=== PATIENT | female | born 1955 | race Caucasian/White ===

== ENCOUNTER 2017-12-14 22:38 | Emergency (ER) | payer MEDICAID, SELFPAY ==
[2017-12-14 22:53] VITALS: BP 99/64; PULSE 83; RESP 18; TEMP 36.9; O2SAT 95
--- NOTE | 2017-12-14 23:28 | ED.GENADUL ---
Disposition Clinical Impression: Cellulitis of left toe Disposition: HOME Condition: Good Instructions: Cellulitis (ED) Additional Instructions: Antibiotic as prescribed. Follow-up your hatchery worker this week. Return to ED for fever, chills, worsening foot pain, swelling, redness. Prescriptions: Amoxicillin 875/Clav. 125 [Augmentin 875-125 Tablet] 1 tab PO BID #20 tab Referrals: Kristian Long DPM [[facility] STAFF PHYSICIAN] - Medical Decision Making - Medical Decision Making Patient is followed by podiatry. She reports x-rays within the last month which were negative for osteomyelitis. She does not have significant bony tenderness. She has severe degenerative rheumatoid changes. She does have cellulitis of the toe. Previously had been on cephalexin. Offered repeat x-rays tonight to evaluate for the possibility of osteomyelitis. She declines because she does not really want to be here. I will go ahead and put her on antibiotics and given the recent round of Keflex will go ahead and use Augmentin. I will have her follow-up with her hatchery worker this week. Return to ED for fever, worsening pain/swelling/redness. History of Present Illness - General Chief complaint: Cellulitis Stated complaint: INFECTED TOE Time Seen by Provider: 12/14/17 23:28 Source: patient Mode of arrival: ambulatory Limitations: no limitations - History of Present Illness Initial comments: Patient presents to ED for evaluation of left toe redness and swelling. Patient is followed by podiatry, Dr. Long. She has been on antibiotics but currently is not. She does not think the toe necessarily looks worse. Her solvent recoverer definitely does and thinks the foot is red and swollen as well. The patient has not noticed any fevers or chills and otherwise feels well. She does have significant rheumatoid arthritis and is on fairly high-dose steroids. She is able to ambulate. She has been doing soaks and keeping her toe covered. She did not want to come into the ED tonight but her sister/solvent recoverer made her come in. - Related Data BuPROPion XL [Wellbutrin Xl] 150 mg PO BID 11/23/14 PredniSONE [Deltasone] 14 mg PO DAILY 11/23/14 ROPINIRole [Requip] 0.25 mg PO BID 02/02/15 Duloxetine HCl 30 mg PO BID 09/01/15 OxyCODONE [Roxicodone] 10 mg PO QID PRN MDD 6 09/01/15 Ferrous Gluconate 325 mg PO BID 01/24/16 Lorazepam [Ativan] 0.5 mg PO BID PRN 01/24/16 Gabapentin 600 mg PO TID 08/24/16 Benzonatate [Tessalon Perles] 200 mg PO Q8H PRN #30 cap 08/02/17 Meloxicam [Mobic] 1 tab PO BID 08/02/17 Morphine Sulfate [Morphine Sulfate ER] 20 mg PO DAILY 08/02/17 Alendronate Sodium 70 mg PO .WEEKLY 10/30/17 Calcium Carbonate/Vitamin D3 [Calcium 600 with Vit D Chew Tb] 2 tab PO DAILY 10/30/17 Lidocaine 5% [Lidoderm 5% Patch] 1 patch DAILY 10/30/17 Omeprazole 20 mg PO DAILY 10/30/17 Polyethylene Glycol 3350 [Glycolax] 1 applic PO BID 10/30/17 Amoxicillin 875/Clav. 125 [Augmentin 875-125 Tablet] 1 tab PO BID #20 tab 12/14/17 Allergies Allergy/AdvReac Type Severity Reaction Status Date / Time sertraline HCl [From Zoloft] Allergy hives Unverified 12/14/17 23:02 baclofen AdvReac Other (See Unverified 12/14/17 23:02 Comment) Review of Systems Constitutional: denies: chills, fever Respiratory: denies: shortness of breath Cardiovascular: denies: chest pain Gastrointestinal: denies: abdominal pain, nausea, vomiting Musculoskeletal: other (severe RA) Skin: change in color Neurological: denies: headache, weakness, numbness Past Medical History - Past Medical History Medical history: arthritis, diabetes, hypertension RA,Chronic pain, Polyarthralgia, Anemia, Cardiomyopathy, Insomnia, Restless Legs Syndrome Surgical history: other (Cervical fusion, Knee replacement, Hip replacement, Back surgery, Foot surgery) - Social History Alcohol use: none Drug use: none General Exam - General Limitations: no limitations General appearance: alert, in no apparent distress - Head Head exam: Present: atraumatic, normocephalic - Eye Eye exam: Present: normal apperance - Extremities Exam Extremities exam: Present: other (Patient with significant rheumatoid arthritis deformities of hand and feet. Left foot with mild edema on the dorsal aspect and slight erythema present. Left third toe markedly erythematous and swollen. No drainage noted although an ulcer is seen. There does not appear to be bony tenderness to palpation.) - Neurological Exam Neurological exam: Present: alert, oriented X3, CN II-XII intact. Absent: motor sensory deficit - Skin Skin exam: Present: warm, dry, erythema, other (Toe ulceration) Course Vital Signs - 24 hr 12/14/17 22:53 Temperature 98.4 F Pulse 83 Respiratory 18 Rate Blood Pressure 99/64 Pulse Oximetry 95
[2017-12-15] MEDS: Amoxicillin 875/Clav. 125 TAB PO (00:01)
== END 2017-12-15 00:04 | disposition home or self-care (01) ==
PROVIDERS: Emergency Provider Emergency Medicine; PCP Internal Medicine
DX: L03.032 Cellulitis of left toe (principal); Z79.52 Long term (current) use of systemic steroids; I10 Essential (primary) hypertension; E11.9 Type 2 diabetes mellitus without complications
CPT/HCPCS: 99283

== ENCOUNTER 2018-07-26 17:06 | Emergency (ER) | payer MEDICAID, SELFPAY ==
[2018-07-26 17:16] VITALS: BP 156/91; PULSE 104; RESP 16; TEMP 36.7; O2SAT 95
--- NOTE | 2018-07-26 17:33 | W.ED.GENAD ---
Discharge Plan Disposition Patient Disposition: HOME Condition: Improving Discharge Details Chief Complaint: RespSymp Clinical Impression: Bronchitis Primary Care Provider: Gio Munoz ED Provider: Adali Loaiza Home Meds and New Rx's Prescriptions: New prednisone 20 mg tablet See Rx Instructions .ROUTE .COMPLEX Qty: 12 RF: 0 levofloxacin [Levaquin] 750 mg tablet 750 mg PO DAILY 4 Days Qty: 4 RF: 0 Continued acetaminophen 325 mg tablet 650 mg PO Q4H PRNRF: 0 Narcan 4 mg/actuation spray,non-aerosol 1 spray JUN ONCE PRNRF: 0 bupropion HCl 150 MG tablet extended release 24 hr 150 mg PO BID RF: 0 prednisone 20 mg tablet 10 mg PO DAILY RF: 0 duloxetine 30 MG capsule,delayed release(DR/EC) 30 mg PO BID RF: 0 oxycodone 10 MG tablet 10 mg PO QID MDD 6 PRNRF: 0 lorazepam [Ativan] 0.5 MG tablet 0.5 mg PO BID PRNRF: 0 ferrous gluconate 325 MG tablet 325 mg PO BID RF: 0 gabapentin 800 MG tablet 600 mg PO TID RF: 0 meloxicam 7.5 MG tablet 1 tab PO BID RF: 0 morphine 30 MG capsule,extend.release pellets 20 mg PO DAILY RF: 0 benzonatate 200 MG capsule 200 mg PO Q8H PRN (Reason: Cough) Qty: 30 RF: 0 alendronate 70 MG tablet 70 mg PO .WEEKLY RF: 0 lidocaine [Lidoderm] 1 PATCH adhesive patch,medicated 1 patch DAILY RF: 0 omeprazole 20 MG capsule,delayed release(DR/EC) 20 mg PO DAILY RF: 0 polyethylene glycol 3350 [GlycoLax] 527 GM powder 1 applic PO BID RF: 0 Calcium 600 with Vitamin D3 1 EACH tablet,chewable 2 tab PO DAILY RF: 0 amoxicillin-pot clavulanate 1 TAB tablet 1 tab PO BID Qty: 20 RF: 0 Discharge Instructions Instructions: Acute Bronchitis (ED), Pneumonia (ED) Additional Instructions: Take the steroid prescription as directed until finished and then resume your regular daily dose of prednisone. Drink plenty of fluids and get plenty of rest. You left before your chest x-ray reading was complete. You did not have an obvious pneumonia on chest x-ray, but the radiologist may see a pneumonia once the xray reading is complete. You will be notified if a pneumonia is diagnosed. Also, smoking is a risk factor for pneumonia so you will be sent home with antibiotics. Take the antibiotics as directed until finished. Follow-up with your primary care doctor in 2 days for reevaluation. Return immediately to the emergency department any worsening or new concerning symptoms. Discharge Data Discharge Date/Time-TO BE ENTERED AT DEPARTURE: 07/26/18 19:10 Discharge Physician: Adali Loaiza Medical Decision Making 62-year-old female with history of rheumatoid arthritis, depression, anxiety, diabetes who presents for cough with pike sputum, shortness of breath with exertion and chest congestion for the past week. Blood pressure and heart rate mildly elevated. Normal respiratory rate, oxygen saturation 95% on room air, and afebrile. Patient able to speak in full sentences. She has diffuse rhonchi with minimal scattered wheezing, worse on left side. Differential diagnosis mostly consistent with bronchitis, pneumonia, URI, influenza. Patient is on steroids chronically, currently on 10 mg prednisone daily for her rheumatoid arthritis. She also is a smoker. Considering patient's age and medical history, will obtain cardiac labs and EKG as well as chest x-ray, influenza, dose of p.o. prednisone and neb treatment and reassess. EKG notes a rate of 90, sinus and no acute ST findings. 1830 --labs and imaging reviewed and unremarkable. Normal white blood cell count, electrolytes, negative troponin. Glucose 208 but normal bicarb and anion gap. Influenza negative. Chest x-ray notes haziness in the bases bilaterally but no obvious focal consolidation. Patient states she feels better after neb treatment. Patient is requesting to go home. Discussed with patient that I do not have the final reading of the chest x-ray but I do not see an obvious pneumonia at this time. Due to her age, smoking history and comorbidities, will send home with a prescription for antibiotics. There is an interaction with doxycycline with her calcium and iron, and then she was recently on Augmentin so we will give a prescription for Levaquin. Pt informed of risks of tendinopathy with levaquin and to be aware of any of these symptoms and to f/u with her pcp and stop the antibiotics if indicated. Patient also requested a albuterol inhaler for home. Patient is instructed to follow-up with primary care doctor for reevaluation and return here at any time if worse. Review of x-ray after patient discharge noted it to be read as negative. Medical Records Medical records reviewed: Yes I reviewed the patient's medical records. Imaging Data Radiologic Study: Radiologist's impression: XR Chest, 2 Views EXAM DATE/TIME: 07/26/2018 5:32 PM FINDINGS: Lungs: Unremarkable. No consolidation. Pleural space: Unremarkable. No pleural effusion. No pneumothorax. Heart/Mediastinum: Mild cardiomegaly. Vasculature: Aortic ectasia again seen. Bones/joints: Status post lower cervical fusion and left-sided midthoracic fusion. Old bilateral rib fractures noted. IMPRESSION: No acute abnormality evident in the chest. Lab Data Lab results reviewed: Yes I reviewed the patient's lab results. 07/26/18 17:44 Nasopharynx Influenza Types A,B Antigen - Final Laboratory Tests Range/Units 07/26/18 07/26/18 17:55 17:55 WBC (4.4-10.8) k/cumm 10.09 RBC (4.00-5.20) m/cumm 5.01 Hgb (12.0-15.5) g/dL 14.5 Hct (36.0-46.0) % 42.9 MCV (80-95) fL 85.6 MCH (27.0-33.0) pg 28.9 MCHC (32.0-36.0) g/dL 33.8 RDW (11.7-14.6) % 13.5 Plt Count (130-400) x1000/uL 224 MPV (8.0-11.0) fL 9.1 Immature Gran % 0.4 Neutrophils % 84.8 Lymphocytes % 9.4 Monocytes % 4.6 Eosinophils % 0.6 Basophils % 0.2 Absolute Neutrophils (1.2-6.7) k/cumm 8.56 H Absolute Lymphocytes (1.2-3.4) k/cumm 0.95 L Absolute Monocytes (0.11-0.7) k/cumm 0.46 Absolute Eosinophils (0.0-0.7) k/cumm 0.06 Absolute Basophils (0.0-0.2) k/cumm 0.02 Sodium (136-145) mmol/L 134 L Potassium (3.5-5.1) mmol/L 3.8 Chloride (98-107) mmol/L 99 Carbon Dioxide (21.0-32.0) mmol/L 24.2 Anion Gap (3-11) mmol/L 10.8 BUN (7-18) mg/dL 14 Creatinine (0.55-1.02) mg/dL 1.04 H Estimated GFR/1.73 m2 (mL/min/1.73m2) 53.35 Glucose (70-100) mg/dL 208 H Calcium (8.5-10.1) mg/dL 9.1 Magnesium (1.8-2.4) mg/dL 2.0 Total Bilirubin (0.2-1.0) mg/dL 0.3 AST (15-37) U/L 19 ALT (12-78) U/L 21 Alkaline Phosphatase (46-116) U/L 69 Troponin I (0.00-0.06) ng/mL < 0.02 Total Protein (6.4-8.2) g/dL 7.1 Albumin (3.4-5.0) g/dL 3.6 ECG Data Attestation: I personally reviewed and interpreted this ECG (s) as follows: Interpretation: Rate of 90, occasional PVCs, no acute ST elevation or depression. QTc 445. QRS 98. HPI General Mode of arrival: ambulatory. Date/Time Provider Initiated Documentation: 07/26/18 17:06. Limitations to Documentation: no limitations. Information obtained by: patient. HPI Narrative: Patient is a 62-year-old female with history of rheumatoid arthritis, anxiety, depression, diabetes and restless leg syndrome who presents with cough with pike sputum and shortness of breath with exertion over the past week. She states the cough with chest congestion is bothering her the most. She denies any chest pain except for at times only with coughing. She states she took [id number] flu medication earlier in the week without relief. She states she has been eating and drinking normally. She does admit to intermittent hot and cold chills but denies any known fever. She denies any vomiting, diarrhea, ear pain or sore throat. Related Data Home Medications Medication Instructions Recorded Confirmed bupropion HCl 150 mg PO BID 11/23/14 07/26/18 duloxetine 30 mg PO BID 09/01/15 07/26/18 oxycodone 10 mg PO QID PRN MDD 6 09/01/15 07/26/18 ferrous gluconate 325 mg PO BID 01/24/16 07/26/18 lorazepam [Ativan] 0.5 mg PO BID PRN 01/24/16 07/26/18 gabapentin 600 mg PO TID 08/24/16 07/26/18 benzonatate 200 mg PO Q8H PRN #30 cap 08/02/17 07/26/18 meloxicam 1 tab PO BID 08/02/17 07/26/18 morphine 20 mg PO DAILY 08/02/17 07/26/18 Calcium 600 with Vitamin D3 2 tab PO DAILY 10/30/17 07/26/18 alendronate 70 mg PO .WEEKLY 10/30/17 07/26/18 lidocaine [Lidoderm] 1 patch DAILY 10/30/17 07/26/18 omeprazole 20 mg PO DAILY 10/30/17 07/26/18 polyethylene glycol 3350 [GlycoLax] 1 applic PO BID 10/30/17 07/26/18 amoxicillin-pot clavulanate 1 tab PO BID #20 tab 12/14/17 07/26/18 acetaminophen 325 mg tablet 650 mg PO Q4H PRN tab 06/05/18 07/26/18 naloxone 4 mg/actuation nasal spray 1 spray JUN ONCE PRN 06/05/18 07/26/18 prednisone 20 mg tablet 10 mg PO DAILY tab 06/05/18 07/26/18 levofloxacin [Levaquin] 750 mg PO DAILY 4 Days #4 tab 07/26/18 prednisone See Rx Instructions .ROUTE 07/26/18 .COMPLEX #12 tab Previous Rx's Medication Instructions Recorded benzonatate 200 mg PO Q8H PRN #30 cap 08/02/17 amoxicillin-pot clavulanate 1 tab PO BID #20 tab 12/14/17 levofloxacin [Levaquin] 750 mg PO DAILY 4 Days #4 tab 07/26/18 prednisone See Rx Instructions .ROUTE 07/26/18 .COMPLEX #12 tab Allergies Allergy/AdvReac Type Severity Reaction Status Date / Time sertraline HCl [From Zoloft] Allergy hives Unverified 07/26/18 17:20 adalimumab [From Humira] AdvReac Severe spinal Verified 07/26/18 17:20 infection baclofen AdvReac Other (See Unverified 07/26/18 17:20 Comment) General Stated Complaint: RespSymp RIDDHI: 3 Review of Systems Review of Systems All systems reviewed & are unremarkable except as noted in HPI and below Constitutional Reports as per HPI, Reports chills and Denies fever(s) Eyes Denies blurry vision ENT Denies dizziness, Denies sore throat and Denies throat swelling Cardiovascular Denies chest pain and Reports dyspnea Respiratory Reports cough and Reports dyspnea Gastrointestinal Denies abdominal pain, Denies diarrhea and Denies vomiting Genitourinary Denies hematuria and Denies dysuria Musculoskeletal Denies back pain and Denies numbness Integumentary/Breasts Denies lesions and Denies rash Neurologic Denies dizziness, Denies focal weakness and Denies numbness Allergic/Immunologic Denies throat swelling [facility] Medical History Compression fracture of body of thoracic vertebra (Acute) Hx of cardiomyopathy (Acute) Insomnia (Acute) Leukocytosis (Acute) Muscle weakness (Acute) Restless leg (Acute) Tobacco abuse (Acute) Anemia (Chronic) Anxiety (Chronic) Depression (Chronic) Diabetes mellitus (Chronic) GERD (gastroesophageal reflux disease) (Chronic) Osteoporosis (Chronic) Rheumatoid arthritis (Chronic) Surgical History H/O spinal fusion (Acute) Family History Mother Glaucoma Father Esophageal cancer Sister Lung cancer Social History Smoking/Tobacco Use Status: Current every day Tobacco Type: cigarettes Smoking cigarettes per day: 5 Alcohol Intake: never Drug use: Current Sobriety Substance use type: does not use Caregiver/Support person: Yes Household members: family Housing: house Number of Children: 0 number of grandchildren: 0 Pets and animals: Yes What is your relationship status?: How often do you talk on the phone with friends or family?: twice per week How often do you get together with friends or relatives?: three or more times per week Panel score (0-1 are the most socially isolated patients): 1 What type of physical activity do you participate in: walking and occasional exercise Agree to transfusion: Yes Seatbelt use: always Do you feel safe at home: Yes Do you feel safe in your relationship?: No Exam Const General: cooperative and other (tearful, c/o pain in both shoulders and hands w/ her RA) Orientation: alert, awake and oriented x3 HENMT Head: normal to inspection Ears: hearing grossly normal bilaterally, external ears normal and TM's normal bilaterally General nose exam: external nose normal Face and sinus: normal facial exam Mouth: oral mucosae normal Teeth and gingiva: dentition normal Throat: posterior oropharynx normal Eyes General: appearance normal, both eyes and all related structures Eyelids: eyelids normal EOM: EOM intact bilaterally Neck Neck: normal visual inspection Lymphatic: no lymphadenopathy noted Chest Chest: normal inspection of the chest Resp Effort & Inspection: normal respiratory effort and able to speak in complete sentences Auscultation: rhonchi and wheezes Cardio Rate: regular rate Rhythm: regular rhythm GI Inspection: normal to inspection Palpation: soft, not firm, no guarding, no hepatosplenomegaly, no masses and nontender Auscultation: normal bowel sounds Skin General skin exam: no rashes or lesions noted Neuro General: alert and awake Cognition: normal cognition Speech: speech normal Gait: normal gait Motor: muscle tone normal throughout Sensory Exam: no sensory deficits noted Extrem General: normal to inspection, full ROM, normal capillary refill and no edema Psych Appearance: grossly normal Mental Status: mental status grossly normal Speech and Movement: speech and movement normal Affect: normal affect Thought Process: normal Course Vital Signs Temperature 98.1 F 07/26/18 17:16 Pulse 104 H 07/26/18 17:16 Respiratory Rate 16 07/26/18 17:16 Blood Pressure 156/91 H 07/26/18 17:16 Pulse Oximetry 95 07/26/18 17:16 Temperature 98.1 F 07/26/18 17:16 Temperature Source Skin 07/26/18 17:16 Pulse 104 H 07/26/18 17:16 Respiratory Rate 16 07/26/18 17:16 Respiratory Effort Non-Labored 07/26/18 17:16 Blood Pressure 156/91 H 07/26/18 17:16 Blood Pressure Position Sitting 07/26/18 17:16 Pulse Oximetry 95 07/26/18 17:16 Oxygen Delivery Method Room Air 07/26/18 17:16 Oxygen Flow Rate 0 07/26/18 17:16 Pain Level 5 07/26/18 17:16
[2018-07-26] MEDS: predniSONE 20 MG TAB 60 MG PO (17:56)
[2018-07-26] MEDS: Albuterol/Ipratropium 3 ML UPD VIAL UPD (17:56)
[2018-07-26 17:58] LABS: Abs Immature Grans 0.04 k/cumm (0.0-0.09); Absolute Basophil Count 0.02 k/cumm (0.0-0.2); Absolute Eosinophil Count 0.06 k/cumm (0.0-0.7); Absolute Lymphocyte Count 0.95 k/cumm (1.2-3.4); Absolute Monocyte Count 0.46 k/cumm (0.11-0.7); Absolute Neutrophil Count 8.56 k/cumm (1.2-6.7); Basophils % 0.2; Eosinophils % 0.6; HCT 42.9 % (36.0-46.0); HGB 14.5 g/dL (12.0-15.5); Immature Grans % 0.4; Lymphocytes % 9.4; Mean Corp. HGB Concentration 33.8 g/dL (32.0-36.0); Mean Corpuscular Hemoglobin 28.9 pg (27.0-33.0); Mean Corpuscular Volume 85.6 fL (80-95); Mean Platelet Volume 9.1 fL (8.0-11.0); Monocytes % 4.6; Neutrophils % 84.8; Platelet Count 224 x1000/uL (130-400); RBC 5.01 m/cumm (4.00-5.20); RBC Distribution Width 13.5 % (11.7-14.6); White Blood Cell Count 10.09 k/cumm (4.4-10.8)
[2018-07-26 18:14] LABS: ALT 21 U/L (12-78); AST 19 U/L (15-37); Albumin 3.6 g/dL (3.4-5.0); Alkaline Phosphatase 69 U/L (46-116); Anion Gap 10.8 mmol/L (3-11); BUN 14 mg/dL (7-18); Bilirubin, Total 0.3 mg/dL (0.2-1.0); CO2 24.2 mmol/L (21.0-32.0); CREATININE 1.04 mg/dL (0.55-1.02); Calcium 9.1 mg/dL (8.5-10.1); Chloride 99 mmol/L (98-107); Estimated GFR 53.35 (mL/min/1.73m2); Glucose 208 mg/dL (70-100); Potassium 3.8 mmol/L (3.5-5.1); Sodium 134 mmol/L (136-145); Total Protein 7.1 g/dL (6.4-8.2); Troponin I < 0.02 ng/mL (0.00-0.06)
--- NOTE | 2018-07-26 18:25 | DI.RAD_ITS ---
SYMPTOM/DIAGNOSIS: COUGH, CONGESTION PA AND LATERAL CHEST: Comparison is made with 08/02/17. The heart size is normal. The lungs appear clear. Hardware is again noted in the lower cervical and mid thoracic spine. There are multiple bilateral old rib fractures. No acute infiltrate, effusion or pulmonary edema is seen. IMPRESSION: No acute abnormality.
--- NOTE | 2018-07-26 19:02 | DI.VRAD_ITS ---
EXAM: XR Chest, 2 Views EXAM DATE/TIME: 07/26/2018 5:32 PM CLINICAL HISTORY: 62 years old, female; Signs and symptoms; Cough; Patient HX: Cough, congestion, R/O acute disease. TECHNIQUE: Imaging protocol: XR of the chest, 2 views. COMPARISON: CR CHEST 2 VIEWS PA,LAT 08/02/2017 12:52 PM FINDINGS: Lungs: Unremarkable. No consolidation. Pleural space: Unremarkable. No pleural effusion. No pneumothorax. Heart/Mediastinum: Mild cardiomegaly. Vasculature: Aortic ectasia again seen. Bones/joints: Status post lower cervical fusion and left-sided midthoracic fusion. Old bilateral rib fractures noted. IMPRESSION: No acute abnormality evident in the chest. COMMENT: Preliminary interpretation is based on receipt of 2 image(s). A final report will be issued subsequently. Dictated and Authenticated by: Ban Waller MD. Ordering:PALMA Bro MD
[2018-07-26] MEDS: Albuterol HFA 8 GM 60 PUFF INH IH (19:04)
[2018-07-26] MEDS: Inhaler, Assist Device 1 EACH MC (19:06)
[2018-07-26 19:24] VITALS: BP 156/91; PULSE 104; RESP 16; O2SAT 95
== END 2018-07-26 19:10 | disposition home or self-care (01) ==
PROVIDERS: Emergency Provider Physician Assistant; PCP Internal Medicine
DX: J40 Bronchitis, not specified as acute or chronic (principal); E11.9 Type 2 diabetes mellitus without complications; I10 Essential (primary) hypertension
CPT/HCPCS: 36415; 80053; 87449; 93005; 94640; 99285; 71046; 83735; 84484; 85025; 93010; 99283; J7512; J7620

== ENCOUNTER 2018-08-21 00:59 | Outpatient (CLI) | payer MEDICAID, SELFPAY ==
--- NOTE | 2018-08-21 11:11 | DI.RAD_ITS ---
SYMPTOMS/DIAGNOSIS: PRODUCTIVE COUGH, R05 PA AND LATERAL CHEST: Note is again made of previously described fixation of cervical and thoracic spine. The heart is at the upper limits of normal in size. Multiple healed rib fractures noted bilaterally. No evidence of acute intrapulmonary consolidation or pleural effusion. CONCLUSION: No evidence of acute disease.
== END 2018-08-21 01:19 ==
PROVIDERS: PCP Internal Medicine; Visit Provider Internal Medicine
DX: R05 Cough (principal); I51.7 Cardiomegaly; S22.43XD Multiple fractures of ribs, bilateral, subsequent encounter for fracture with routine healing
CPT/HCPCS: 71046

== ENCOUNTER 2019-03-09 15:55 | Inpatient (IN) | payer MEDICARE, MEDICAID, SELFPAY ==
[2019-03-09] VITALS (37 sets, daily range): BP systolic 105–145; BP diastolic 69–94; PULSE 70–101; RESP 13–34; TEMP 36.8; O2SAT 90–99
--- NOTE | 2019-03-09 16:07 | DI.RAD_ITS ---
EXAM: XR CHEST 2V PA LATERAL INDICATION: cough. COMPARISON: XR CHEST 2V PA LATERAL from 08/21/2018 TECHNIQUE: 2D digital imaging was performed. FINDINGS: The heart size is normal. Hardware is again noted in the mid thoracic spine. There is a stable low er thoracic compression fracture. Upper lumbar compression fractures are also faintly visualized. T here are old bilateral rib fractures. There is no evidence of pneumothorax, infiltrate or effusion. IMPRESSION: No acute abnormality.
[2019-03-09 16:21] LABS: Abs Immature Grans 0.11 k/cumm (0.0-0.09); Absolute Basophil Count 0.01 k/cumm (0.0-0.2); Absolute Eosinophil Count 0.01 k/cumm (0.0-0.7); Absolute Lymphocyte Count 0.83 k/cumm (1.2-3.4); Absolute Monocyte Count 1.39 k/cumm (0.11-0.7); Basophils % 0.1; Eosinophils % 0.1; HCT 40.9 % (36.0-46.0); HGB 14.4 g/dL (12.0-15.5); Immature Grans % 0.8; Lymphocytes % 6.2; Mean Corp. HGB Concentration 35.2 g/dL (32.0-36.0); Mean Corpuscular Volume 82.3 fL (80-95); Mean Platelet Volume 9.2 fL (8.0-11.0); Monocytes % 10.3; Neutrophils % 82.5; Platelet Count 248 x1000/uL (130-400); RBC 4.97 m/cumm (4.00-5.20); RBC Distribution Width 13.3 % (11.7-14.6); White Blood Cell Count 13.45 k/cumm (4.4-10.8)
[2019-03-09 16:35] LABS: ALT 28 U/L (14-59); AST 23 U/L (15-37); Albumin 3.5 g/dL (3.4-5.0); Alkaline Phosphatase 49 U/L (46-116); Anion Gap 10.3 mmol/L (3-11); BUN 8 mg/dL (7-18); Bilirubin, Total 0.5 mg/dL (0.2-1.0); CO2 25.7 mmol/L (21.0-32.0); CREATININE 0.69 mg/dL (0.55-1.02); Calcium 8.9 mg/dL (8.5-10.1); Chloride 96 mmol/L (98-107); Glucose 106 mg/dL (70-100); Potassium 3.9 mmol/L (3.5-5.1); Sodium 132 mmol/L (136-145); Total Protein 7.5 g/dL (6.4-8.2)
[2019-03-09] MEDS: oxyCODONE 5 MG TAB PO (16:41)
--- NOTE | 2019-03-09 16:52 | NUR.NOTE ---
Nursing Note: [facility] in staff called to update staff on pt. facility wanted staff to be aware that pt has been refusing meals but has been able to walk downstairs for her cigarettes. pt also is has a strict regimen for her narcotics. [facility] is aware that pt is here and they will arrange for her return when pt is d/c .
--- NOTE | 2019-03-09 16:57 | DI.VRAD_ITS ---
PROCEDURE INFORMATION: Exam: XR Chest, 2 Views Exam date and time: 03/09/2019 4:08 PM Clinical history: 63 years old, female; Cough; Prior surgery TECHNIQUE: Imaging protocol: XR of the chest Views: 2 views. COMPARISON: CR XR CHEST 2V PA LATERAL 08/21/2018 11:11 AM FINDINGS: Lungs: Hyperexpanded lung harris consistent with COPD Mild opacities in the bases represent atelectasis or pneumonia.. Pleural space: Unremarkable. No pleural effusion. No pneumothorax. Heart/Mediastinum: Stable cardiac silhouette Bones/joints: Stable internal fixation device in the thoracic spine Status post spinal fusion in the cervical spine Healed bilateral rib fractures IMPRESSION: Mild opacities in the bases represent atelectasis or pneumonia.. Hyperexpanded lung harris consistent with COPD Dictated and Authenticated by: Rtuh Laird MD. Ordering:HANK Sheth MD
--- NOTE | 2019-03-09 17:06 | NUR.NOTE ---
Nursing Note: pt reports that she can not go back to the [facility] because it is an awful place and she is just to darn sick.
[2019-03-09 17:33] LABS: Lactate 1.4 mmol/L (0.6-1.4)
--- NOTE | 2019-03-09 17:42 | NUR.NOTE ---
Nursing Note: dinner tray provided.
--- NOTE | 2019-03-09 17:45 | ED.GENADUL_ITS ---
Discharge Plan Disposition Patient Disposition: [facility] INPATIENT Condition: Serious Discharge Details Chief Complaint: SOB Clinical Impression: COPD (chronic obstructive pulmonary disease), Pneumonia Admit Date/Time: 03/09/19 18:30 Admit Provider: Jamari Lunsford Attending Provider: Jamari Lunsford Primary Care Provider: Gio Munoz ED Provider: Domenic Godfrey Medical Decision Making 63-year-old female smoker with history of COPD here with productive cough over the past week, generally not feeling well. Patient with mild tachypnea. Saturating in low 90s. Suspect pneumonia. Consider COPD exacerbation. I recommended albuterol neb and patient refused. We will give prednisone 40 mg orally. Chest x-ray was reviewed and interpreted by radiology:IMPRESSION: Mild opacities in the bases represent atelectasis or pneumonia.. Hyperexpanded lung harris consistent with COPD. Labs reviewed and leukocytosis noted. Lactate normal. Blood cultures pending. Plan to initiate treatment for pneumonia with broad-spectrum coverage with cefepime and azithromycin. Patient reassessed and has remained stable. I called and spoke with Dr. Lunsford, discussed ED presentation and course including all diagnostics and treatment - he will admit the patient. Care transition to Dr. Lunsford. HPI General Mode of arrival: ambulatory . Date/Time Provider Initiated Documentation: 03/09/19 16:05 . Limitations to Documentation: no limitations . Information obtained by: patient . HPI Narrative: 63-year-old female smoker resident of [place] in with history of COPD, presents with chief complaint of cough. Patient notes worsening cough over the past 1 week. Cough is productive of pike and brown sputum. She has associated shortness of breath. No associated fever. She does have some associated pleuritic chest discomfort. Patient feels generally fatigued. Patient states symptoms are same as when she is had pneumonia in remote past. Related Data Home Medications Medication Instructions Recorded Confirmed bupropion HCl 150 mg PO BID 11/23/14 03/09/19 duloxetine 30 mg PO BID 09/01/15 07/26/18 oxycodone 10 mg PO QID PRN MDD 6 09/01/15 03/09/19 ferrous gluconate 324 mg PO BID 01/24/16 03/09/19 lorazepam [Ativan] 0.5 mg PO HS 01/24/16 03/09/19 gabapentin 600 mg PO TID 08/24/16 03/09/19 meloxicam 1 tab PO BID 08/02/17 03/09/19 morphine 15 mg PO HS 08/02/17 03/09/19 Calcium 600 with Vitamin D3 2 tab PO DAILY 10/30/17 03/09/19 alendronate 70 mg PO .WEEKLY 10/30/17 03/09/19 lidocaine [Lidoderm] 1 patch DAILY 10/30/17 07/26/18 omeprazole 20 mg PO DAILY 10/30/17 07/26/18 polyethylene glycol 3350 [GlycoLax] 1 applic PO BID 10/30/17 03/09/19 acetaminophen 325 mg tablet 650 mg PO Q4H PRN tab 06/05/18 03/09/19 naloxone 4 mg/actuation nasal spray 1 spray JUN ONCE PRN 06/05/18 03/09/19 prednisone 20 mg tablet 3.5 - 4 mg PO DIRECTED tab 06/05/18 03/09/19 Calcium Creamies 600 mg PO DIRECTED 03/09/19 03/09/19 ascorbic acid (vitamin C) [Vitamin 500 mg PO DAILY 03/09/19 03/09/19 C] calcium carbonate [Oysco-500] 500 mg PO DAILY 03/09/19 guaifenesin 600 mg PO BID PRN 03/09/19 03/09/19 lidocaine 1 applic TOPICAL BID 03/09/19 03/09/19 lorazepam 0.5 mg PO HS 03/09/19 03/09/19 pantoprazole 20 mg PO DAILY 03/09/19 03/09/19 prednisone 5 mg PO DAILY 03/09/19 03/09/19 sennosides [senna] 8.6 mg PO BID 03/09/19 03/09/19 venlafaxine 150 mg PO DAILY 03/09/19 03/09/19 Allergies Allergy/AdvReac Type Severity Reaction Status Date / Time sertraline HCl [From Zoloft] Allergy hives Unverified 03/09/19 16:03 adalimumab [From Humira] AdvReac Severe spinal Verified 03/09/19 16:03 infection baclofen AdvReac Other (See Unverified 03/09/19 16:03 Comment) General Stated Complaint: SOB RIDDHI: 2 Review of Systems All systems reviewed & are unremarkable except as noted in HPI and below Constitutional Constitutional: Reports as per HPI and Denies fever(s) Respiratory Respiratory: Reports as per HPI and Reports cough Musculoskeletal Musculoskeletal: Reports arthralgias [facility] Medical History Anemia (Chronic) Anxiety (Chronic) Compression fracture of body of thoracic vertebra (Acute) Depression (Chronic) Diabetes mellitus (Chronic) due to previous high steroids. Not on any diabetes meds GERD (gastroesophageal reflux disease) (Chronic) Hx of cardiomyopathy (Acute) Insomnia (Acute) Leukocytosis (Acute) Muscle weakness (Acute) Osteoporosis (Chronic) Restless leg (Acute) Rheumatoid arthritis (Chronic) Tobacco abuse (Acute) Surgical History H/O spinal fusion (Acute) cervical and thoracic Family History Mother Glaucoma Father , age 82 from esophageal cancer Esophageal cancer Sister , age 54 from lung cancer Lung cancer Social History Smoking/Tobacco Use Status: Current every day Tobacco Type: cigarettes Alcohol Intake: never Drug use: Current Sobriety Substance use type: does not use Caregiver/Support person: Yes Household members: family Housing: house Number of Children: 0 number of grandchildren: 0 Pets and animals: Yes What is your relationship status?: How often do you talk on the phone with friends or family?: twice per week How often do you get together with friends or relatives?: three or more times per week Panel score (0-1 are the most socially isolated patients): 1 What type of physical activity do you participate in: walking and occasional exercise Agree to transfusion: Yes Seatbelt use: always Do you feel safe at home: Yes Do you feel safe in your relationship?: Yes Exam Const General: cooperative HENMT Mouth: moist mucous membranes Eyes Conjunctivae: normal conjunctivae Sclera: normal sclerae Neck Neck: trachea midline, supple and no JVD Resp Effort & Inspection: able to speak in complete sentences, cough, tachypneic, no tripod positioning and no use of accessory muscles Auscultation: rales bilaterally and rhonchi Cardio Jugular venous pressure: no JVD Rate: regular rate and not tachycardic Rhythm: regular rhythm GI Palpation: soft, not firm, no guarding, no masses, not rigid and nontender Skin General skin exam: no rashes or lesions noted Neuro General: alert, awake and tone normal Extrem General: no edema Psych Appearance: grossly normal Mental Status: mental status grossly normal Course Vital Signs Vital signs: Vital Signs Temperature 36.8 C 03/09/19 15:53 Pulse 88 03/09/19 15:53 Respiratory Rate 24 03/09/19 15:53 Blood Pressure 145/94 H 03/09/19 15:53 Pulse Oximetry 95 03/09/19 15:53 Temperature 36.8 C 03/09/19 15:53 Temperature Source Skin 03/09/19 15:53 Pulse 70 03/09/19 17:40 Pulse 92 H 03/09/19 17:40 Respiratory Rate 19 03/09/19 17:40 Respiratory Effort Labored 03/09/19 16:08 Respiratory Pattern Tachypnea 03/09/19 16:08 Blood Pressure 123/88 03/09/19 17:40 Blood Pressure Mean 96 03/09/19 17:40 Pulse Oximetry 97 03/09/19 17:30 Oxygen Delivery Method Room Air 03/09/19 16:25 Oxygen Flow Rate 0 03/09/19 16:25 Pain Level 9 03/09/19 15:53 Lab/Test Results Lab/Test Results: 03/09/19 17:37 Blood Blood Culture - Pending 03/09/19 17:18 Blood Blood Culture - Pending Laboratory Tests Range/Units 03/09/19 03/09/19 03/09/19 16:13 16:13 17:18 WBC (4.4-10.8) k/cumm 13.45 H RBC (4.00-5.20) m/cumm 4.97 Hgb (12.0-15.5) g/dL 14.4 Hct (36.0-46.0) % 40.9 MCV (80-95) fL 82.3 MCH (27.0-33.0) pg 29.0 MCHC (32.0-36.0) g/dL 35.2 RDW (11.7-14.6) % 13.3 Plt Count (130-400) x1000/uL 248 MPV (8.0-11.0) fL 9.2 Immature Gran % 0.8 Neutrophils % 82.5 Lymphocytes % 6.2 Monocytes % 10.3 Eosinophils % 0.1 Basophils % 0.1 Absolute Neutrophils (1.2-6.7) k/cumm 11.10 H Absolute Lymphocytes (1.2-3.4) k/cumm 0.83 L Absolute Monocytes (0.11-0.7) k/cumm 1.39 H Absolute Eosinophils (0.0-0.7) k/cumm 0.01 Absolute Basophils (0.0-0.2) k/cumm 0.01 Sodium (136-145) mmol/L 132 L Potassium (3.5-5.1) mmol/L 3.9 Chloride (98-107) mmol/L 96 L Carbon Dioxide (21.0-32.0) mmol/L 25.7 Anion Gap (3-11) mmol/L 10.3 BUN (7-18) mg/dL 8 Creatinine (0.55-1.02) mg/dL 0.69 Estimated GFR/1.73 m2 (mL/min/1.73m2) >= 60.00 Glucose (70-100) mg/dL 106 H Lactate (0.6-1.4) mmol/L 1.4 Calcium (8.5-10.1) mg/dL 8.9 Total Bilirubin (0.2-1.0) mg/dL 0.5 AST (15-37) U/L 23 ALT (14-59) U/L 28 Alkaline Phosphatase (46-116) U/L 49 Total Protein (6.4-8.2) g/dL 7.5 Albumin (3.4-5.0) g/dL 3.5
[2019-03-09] MEDS: AZITHROMYCIN 500 MG in Normal Saline 250 ML 250 MG IVPB (18:03)
[2019-03-09] MEDS: predniSONE 20 MG TAB 40 MG PO (18:06)
--- NOTE | 2019-03-09 18:14 | NUR.NOTE ---
Nursing Note: pt adammit about ambulating ot bathroom. up to bathroom independently. pt winded up return to the room but o2 saturations remain in the low 90's. recovered quickly.
--- NOTE | 2019-03-09 18:46 | W.PM.HP.N ---
Date of service: 03/09/19 Time of Service: 18:46 Assessment and Plan Assessment and plan (1) Pneumonia: Start date: 03/09/19 Status: Acute Assessment and plan: This is a 63-year-old lady who resides at a level 3 facility who has had a week history of GERD presents with ongoing cough and change in sputum. She also slightly dyspneic. She has a smoker up to this last winter. She does not take any medications for COPD but has evidence of this on chest x-ray. X-ray was consistent with possible pneumonia and she was admitted for facility acquired pneumonia. She was started on cefepime 2 g IV twice a day and azithromycin 500 mg IV daily. She will be followed clinically and watch for decrease in her symptoms and elevated white count though this could also be secondary to her distress and chronic steroids. She also has mild hyponatremia which may be secondary to chronic steroid use. She will not be given any IV hydration at this time being stable and taking oral well. Qualifiers: Laterality: right Lung location: lower lobe of lung Pneumonia type: due to unspecified organism Qualified Code(s): J18.1 - Lobar pneumonia, unspecified organism (2) COPD (chronic obstructive pulmonary disease): Status: Chronic Assessment and plan: Patient is a smoker but on no respiratory care but will be treated with albuterol nebulizers as needed while hospitalized. She tends to not want to take these because of side effects with tachycardia. She will be given IV Solu-Medrol. Qualifiers: COPD type: COPD with acute lower respiratory infection Qualified Code(s): J44.0 - Chronic obstructive pulmonary disease with (acute) lower respiratory infection (3) Rheumatoid arthritis: Status: Chronic Assessment and plan: This is a chronic debilitating problem for this patient on chronic steroids and with diffuse joint abnormalities. Once she is out of the hospital she will be replaced on her oral steroids. Qualifiers: Rheumatoid arthritis location: multiple sites Rheumatoid factor presence: unspecified presence Qualified Code(s): M06.9 - Rheumatoid arthritis, unspecified History of Present Illness History of Present Illness Chief Complaint: Cough with change in sputum Narrative: This is a 63-year-old lady who resides at [facility], a local level 3 facility. She has had a cough for about 1 week with a change in sputum and is chronically compromised on prednisone for rheumatoid arthritis which is severe and deforming the patient having limited ambulation. She came to the ED for evaluation and a chest x-ray revealed probable right lower lobe infiltrate with bilateral lower lobe opacities consistent with atelectasis or pneumonic process. The ED physician thought the right side was worse. She is a smoker up to this last summer. She did complain of some pleuritic discomfort and dyspnea. She had no chest pain. She has pneumonia in the remote past. She is felt fatigued and was not improving prompting her evaluation. Her appetite was fair to no GI or complaints. She had a chronic arthritic complaints and disabilities with no swelling. Her mentation was normal. She is a DNR/DNI. Review of Systems Narrative: 13 point review of systems otherwise unrevealing or stable. [facility] Medical History Anemia (Chronic) Anxiety (Chronic) Compression fracture of body of thoracic vertebra (Acute) Depression (Chronic) Diabetes mellitus (Chronic) due to previous high steroids. Not on any diabetes meds GERD (gastroesophageal reflux disease) (Chronic) Hx of cardiomyopathy (Acute) Insomnia (Acute) Leukocytosis (Acute) Muscle weakness (Acute) Osteoporosis (Chronic) Restless leg (Acute) Rheumatoid arthritis (Chronic) Tobacco abuse (Acute) Surgical History H/O spinal fusion (Acute) cervical and thoracic Family History Mother Glaucoma Father , age 82 from esophageal cancer Esophageal cancer Sister , age 54 from lung cancer Lung cancer Social History Smoking/Tobacco Use Status: Current every day Tobacco Type: cigarettes Alcohol Intake: never Drug use: Current Sobriety Substance use type: does not use Caregiver/Support person: Yes Household members: family Housing: house Number of Children: 0 number of grandchildren: 0 Pets and animals: Yes What is your relationship status?: How often do you talk on the phone with friends or family?: twice per week How often do you get together with friends or relatives?: three or more times per week Panel score (0-1 are the most socially isolated patients): 1 What type of physical activity do you participate in: walking and occasional exercise Agree to transfusion: Yes Seatbelt use: always Do you feel safe at home: Yes Do you feel safe in your relationship?: Yes Meds Home Medications and Allergies Home Medications Medication Instructions Recorded Confirmed Type bupropion HCl 150 mg PO BID 11/23/14 03/09/19 History duloxetine 30 mg PO BID 09/01/15 07/26/18 History oxycodone 10 mg PO QID PRN MDD 6 09/01/15 03/09/19 History ferrous gluconate 324 mg PO BID 01/24/16 03/09/19 History lorazepam [Ativan] 0.5 mg PO HS 01/24/16 03/09/19 History gabapentin 600 mg PO TID 08/24/16 03/09/19 History meloxicam 1 tab PO BID 08/02/17 03/09/19 History morphine 15 mg PO HS 08/02/17 03/09/19 History Calcium 600 with Vitamin D3 2 tab PO DAILY 10/30/17 03/09/19 History alendronate 70 mg PO .WEEKLY 10/30/17 03/09/19 History lidocaine [Lidoderm] 1 patch DAILY 10/30/17 07/26/18 History omeprazole 20 mg PO DAILY 10/30/17 07/26/18 History polyethylene glycol 3350 [GlycoLax] 1 applic PO BID 10/30/17 03/09/19 History acetaminophen 325 mg tablet 650 mg PO Q4H PRN tab 06/05/18 03/09/19 History naloxone 4 mg/actuation nasal spray 1 spray JUN ONCE PRN 06/05/18 03/09/19 History prednisone 20 mg tablet 3.5 - 4 mg PO DIRECTED tab 06/05/18 03/09/19 History Calcium Creamies 600 mg PO DIRECTED 03/09/19 03/09/19 History ascorbic acid (vitamin C) [Vitamin 500 mg PO DAILY 03/09/19 03/09/19 History C] calcium carbonate [Oysco-500] 500 mg PO DAILY 03/09/19 History guaifenesin 600 mg PO BID PRN 03/09/19 03/09/19 History lidocaine 1 applic TOPICAL BID 03/09/19 03/09/19 History lorazepam 0.5 mg PO HS 03/09/19 03/09/19 History pantoprazole 20 mg PO DAILY 03/09/19 03/09/19 History prednisone 5 mg PO DAILY 03/09/19 03/09/19 History sennosides [senna] 8.6 mg PO BID 03/09/19 03/09/19 History venlafaxine 150 mg PO DAILY 03/09/19 03/09/19 History Allergies Allergy/AdvReac Type Severity Reaction Status Date / Time sertraline HCl [From Zoloft] Allergy hives Unverified 03/09/19 16:03 adalimumab [From Humira] AdvReac Severe spinal Verified 03/09/19 16:03 infection baclofen AdvReac Other (See Unverified 03/09/19 16:03 Comment) Exam Narrative Exam Narrative: General: Patient appears older than stated age, she is alert and oriented x3 and in no acute distress. She is unkempt with diffuse muscle wasting especially over her extremities but also over her trunk. HEENT: Normocephalic with eyes revealing pupils equal and reactive to light symmetrically, extraocular movement intact and sclera anicteric. Oropharynx with dry oral mucosa. Neck: Supple without JVD. Back: Kyphotic, decreased range of motion with no CVA tenderness. Surgical scars over her back including neck and thoracic region. Breast: Not examined. Heart: Regular rate and rhythm no appreciable murmurs. Lungs: Fair aeration anteriorly with bronchovesicular breath sounds diffusely, bilateral basal crackles worse on the right. No dullness to percussion. There are no intercostal retractions with inspiration. Abdomen: Contour scaphoid, bowel sounds positive all quadrants, soft and nontender to palpation with no palpable hepatosplenomegaly. Genitalia and rectal: Not examined. Extremities: Diffuse rheumatoid arthritic changes over the upper and lower extremities with no joint swelling, marked decreased range of motion and periarticular muscle atrophy. No pitting edema and no cyanosis. No clubbing. Multiple surgical scars over her knees and hips. Neuro: Cranial nerves II through XII grossly intact, no focalizing motor deficits though she appears to have generalized weakness from her arthritic processes. Psych: Normal affect and very talkative with normal thought processes, normal mood. Remote and recent memory appear to be intact. Results Imaging Imaging Studies: Exam(s) PROCEDURE INFORMATION: Exam: XR Chest, 2 Views Exam date and time: 03/09/2019 4:08 PM Clinical history: 63 years old, female; Cough; Prior surgery TECHNIQUE: Imaging protocol: XR of the chest Views: 2 views. COMPARISON: CR XR CHEST 2V PA LATERAL 08/21/2018 11:11 AM FINDINGS: Lungs: Hyperexpanded lung harris consistent with COPD Mild opacities in the bases represent atelectasis or pneumonia.. Pleural space: Unremarkable. No pleural effusion. No pneumothorax. Heart/Mediastinum: Stable cardiac silhouette Bones/joints: Stable internal fixation device in the thoracic spine Status post spinal fusion in the cervical spine Healed bilateral rib fractures IMPRESSION: Mild opacities in the bases represent atelectasis or pneumonia.. Hyperexpanded lung harris consistent with COPD Dictated and Authenticated by: Ruth Laird MD. Labs Result diagrams: 03/09/19 16:13 03/09/19 16:13 Labs: Laboratory Results - last 24 hr 03/09/19 03/09/19 03/09/19 16:13 16:13 17:18 WBC 13.45 H RBC 4.97 Hgb 14.4 Hct 40.9 MCV 82.3 MCH 29.0 MCHC 35.2 RDW 13.3 Plt Count 248 MPV 9.2 Immature Gran % 0.8 Neutrophils % 82.5 Lymphocytes % 6.2 Monocytes % 10.3 Eosinophils % 0.1 Basophils % 0.1 Absolute Neutrophils 11.10 H Absolute Lymphocytes 0.83 L Absolute Monocytes 1.39 H Absolute Eosinophils 0.01 Absolute Basophils 0.01 Sodium 132 L Potassium 3.9 Chloride 96 L Carbon Dioxide 25.7 Anion Gap 10.3 BUN 8 Creatinine 0.69 Estimated GFR/1.73 m2 >= 60.00 Glucose 106 H Lactate 1.4 Calcium 8.9 Total Bilirubin 0.5 AST 23 ALT 28 Alkaline Phosphatase 49 Total Protein 7.5 Albumin 3.5 Last Vital Signs Temp 36.8 C 03/09/19 15:53 Pulse 96 H 03/09/19 18:01 Resp 34 H 03/09/19 18:12 BP 126/78 03/09/19 18:01 Pulse Ox 94 L 03/09/19 18:12
[2019-03-09 19:08] LABS: Magnesium 2.2 mg/dL (1.8-2.4)
[2019-03-09] MEDS: CEFEPIME 2 GM in Normal Saline 100 ML IVPB (19:56)
[2019-03-09] MEDS: Ferrous Gluconate 324 MG TAB PO (20:42)
[2019-03-09] MEDS: Gabapentin 600 MG TAB PO (20:42)
[2019-03-09] MEDS: Acetaminophen 325 MG TAB PO (20:42)
[2019-03-09] MEDS: buPROPion-XL 150 MG TABCR PO (20:42)
[2019-03-09] MEDS: oxyCODONE 10 MG TAB PO (21:03)
[2019-03-09] MEDS: Meloxicam 15 MG TAB 7.5 MG PO (22:33)
[2019-03-09] MEDS: Heparin 5,000 UNITS/ML VIAL 5000 UNITS SC (22:33)
[2019-03-09] MEDS: LORazepam 0.5 MG TAB PO (22:33)
[2019-03-10] VITALS (10 sets, daily range): BP systolic 115–150; BP diastolic 75–90; PULSE 73–96; RESP 2–21; TEMP 35.9–36.9; O2SAT 90–94
[2019-03-10] MEDS: methylPREDNISolone SUCC 125 MG VIAL 80 MG IVP (05:53)
[2019-03-10] MEDS: Normal Saline Flush 10 ML SYR IVP ×3 (05:54→17:23)
[2019-03-10] MEDS: Heparin 5,000 UNITS/ML VIAL 5000 UNITS SC ×3 (05:54→21:07)
[2019-03-10] MEDS: CEFEPIME 2 GM in Normal Saline 100 ML IVPB ×2 (05:54→17:22)
[2019-03-10 07:43] LABS: HCT 40.7 % (36.0-46.0); HGB 14.1 g/dL (12.0-15.5); Mean Corp. HGB Concentration 34.6 g/dL (32.0-36.0); Mean Corpuscular Hemoglobin 28.5 pg (27.0-33.0); Mean Corpuscular Volume 82.2 fL (80-95); Mean Platelet Volume 9.4 fL (8.0-11.0); Platelet Count 268 x1000/uL (130-400); RBC 4.95 m/cumm (4.00-5.20); RBC Distribution Width 13.2 % (11.7-14.6); White Blood Cell Count 11.15 k/cumm (4.4-10.8)
[2019-03-10 07:53] LABS: ALT 26 U/L (14-59); AST 18 U/L (15-37); Albumin 3.3 g/dL (3.4-5.0); Alkaline Phosphatase 45 U/L (46-116); BUN 11 mg/dL (7-18); Bilirubin, Total 0.4 mg/dL (0.2-1.0); CREATININE 0.71 mg/dL (0.55-1.02); Calcium 8.7 mg/dL (8.5-10.1); Chloride 100 mmol/L (98-107); Glucose 126 mg/dL (70-100); Potassium 4.2 mmol/L (3.5-5.1); Sodium 133 mmol/L (136-145); Total Protein 7.3 g/dL (6.4-8.2)
[2019-03-10] MEDS: buPROPion-XL 150 MG TABCR PO ×2 (09:18→19:41)
[2019-03-10] MEDS: Gabapentin 600 MG TAB PO ×3 (09:18→19:41)
[2019-03-10] MEDS: Lidocaine 5% Patch 1 PATCH TP (09:18)
[2019-03-10] MEDS: Calcium 600mg/Vit D 200U TAB 2 TAB PO (09:19)
[2019-03-10] MEDS: Pantoprazole 40 MG TABCR PO (09:19)
[2019-03-10] MEDS: Ferrous Gluconate 324 MG TAB PO ×2 (09:19→19:41)
[2019-03-10] MEDS: oxyCODONE 10 MG TAB PO ×3 (09:19→20:32)
[2019-03-10] MEDS: Senna TAB 1 TAB PO ×2 (09:19→19:42)
[2019-03-10] MEDS: Venlafaxine 150 MG CAPCR PO (09:19)
[2019-03-10] MEDS: MELOXICAM 7.5 MG TAB PO ×2 (09:19→19:42)
[2019-03-10] MEDS: Ascorbic Acid 500 MG TAB PO (09:19)
[2019-03-10] MEDS: Acetaminophen 325 MG TAB PO ×2 (10:59→21:07)
[2019-03-10 11:03] LABS: Bilirubin Negative (Negative); Blood Negative (Negative); Clarity Clear (Clear); Glucose Negative (Negative); Ketones Trace mg/dL (Negative); Leukocyte Esterase Negative (Negative); Nitrite Negative (Negative); Specific Gravity 1.015 (1.005-1.025); Urobilinogen 0.2 EU/dL (Up TO 0.2)
--- NOTE | 2019-03-10 11:10 | PHARADMIT ---
Addendum entered by Eloisa Balbuena 03/12/19 15:59: Pharmacy Note Subjective Clinically improving Objective Vitals ok, Na 133, WBC 19.39, Assessment Sputum: cornebacterium spp and fungus = further speciation requested Azithromycin and Cefepime day 4 Plan Continue abx, keep steroid dose same, ketorolac ordered prn for headache Addendum entered by Gely Echevarria 03/10/19 14:53: spoke to Dr Munoz's office and pt is not currently on duloxetine Original Note: Admission Pharmacy Clinical Review RIGHT LOWER LOBE PNEUMONIA, COPD Code Status DNR/DNI Current Weight 49.6 kg Renally Cleared and Narrow Therapeutic Index Meds CRCL ~50ML/MIN QTc Value / Action Taken NA BP Control, Fever 128/80 afebrile Electrolytes reviewed ok DVT Prophylaxis heparin Opiate Usage / Scheduled Bowel Regimen Ordered yes/prn Plt/SCr for Heparin / Enoxaparin 268/0.71 INR for Warfarin na H/H stable, WBC/Bands 14.1/40.7 wbc 11.15 Antibiotic appropriateness azithromycin and cefepime IV, Cultures and Sensitivities BC and sputum pending Surgical ABX d/c within 24 hr na DM control / Insulin Dosing na Heart Failure (Check EF%) (ALESSANDRO's, B-Block, Diuretics) in history but on no meds IV to PO Switch IV abx Home Meds Reviewed yes Home Meds Not Ordered duloxetine 30 mg PO BID omeprazole 20 mg PO DAILY naloxone 4 mg/actuation nasal spray 1 spray JUN ONCE PRN prednisone 20 mg tablet 3.5 - 4 mg PO DIRECTED tab Calcium Creamies 600 mg PO DIRECTED prednisone 5 mg PO DAILY Comments
[2019-03-10] MEDS: methylPREDNISolone SUCC 125 MG VIAL 60 MG IVP ×2 (14:29→21:08)
--- NOTE | 2019-03-10 15:33 | W.PM.PROGNOT ---
Date of Service Date of service: 03/10/19 Time of Service: 15:33 Assessment and Plan Assessment and plan (1) Pneumonia: Status: Acute Assessment and plan: RLL pneumonia, present on admission, In an immunocompramised patient. On azithromycin/cefepime Day 2 - will continue. Sputum culture is pending. Blood cultures are pending. Provide steroids, nebs, antitussives. Qualifiers: Pneumonia type: due to unspecified organism Laterality: right Lung location: lower lobe of lung Qualified Code(s): J18.1 - Lobar pneumonia, unspecified organism (2) Acute exacerbation of chronic obstructive pulmonary disease (COPD): Status: Acute Assessment and plan: As above (3) Rheumatoid arthritis: Status: Chronic Assessment and plan: The patient is on chronic steroids - we will slowly wean her to her home dose. Consult PT. Continue outpatient pain management. Qualifiers: Rheumatoid arthritis location: multiple sites Rheumatoid factor presence: unspecified presence Qualified Code(s): M06.9 - Rheumatoid arthritis, unspecified (4) Anxiety: Status: Chronic Assessment and plan: Chronic. No change in tx (5) Chronic pain syndrome: Status: Chronic Assessment and plan: Continue home regimen (6) DVT prophylaxis: Status: Acute Assessment and plan: Heparin SC (7) Discharge planning issues: Status: Acute Assessment and plan: DNR/DNI. Palliative care patient as outpatient - consider consult here Subjective Subjective Interval history since last seen: Ms Delatorre states that she does not really feel much better today than she felt yesterday. Cough is productive of rodriguez sputum. She is wheezing. Denies dizziness, chest pain, nausea. Feels bloated and constipated. No abdominal pain. Had diarrhea yesterday. Did not like the way the normal nebulizers made her feel, but now agrees to xopenex and atrovent. Exam Narrative Exam Narrative: General: very pleasant middle-aged female with a harsh cough, A&Ox3, laying comfortably in bed HEENT: EOMI, MMM Heart: RRR, no m/r/g Lungs: wheezing on auscultation B GI: abdomen is soft, nontender, nondistended Extremities: no e/c/c BLE's Objective Objective Clinical Data: Abnormal lab results 03/09/19 03/09/19 03/10/19 Range/Units 16:13 16:13 03:50 WBC 13.45 H (4.4-10.8) k/cumm Absolute Neutrophils 11.10 H (1.2-6.7) k/cumm Absolute Lymphocytes 0.83 L (1.2-3.4) k/cumm Absolute Monocytes 1.39 H (0.11-0.7) k/cumm Sodium 132 L (136-145) mmol/L Chloride 96 L (98-107) mmol/L Glucose 106 H (70-100) mg/dL Alkaline Phosphatase (46-116) U/L Albumin (3.4-5.0) g/dL Urine Ketones Trace H (Negative) mg/dL 03/10/19 03/10/19 Range/Units 07:04 07:04 WBC 11.15 H (4.4-10.8) k/cumm Absolute Neutrophils (1.2-6.7) k/cumm Absolute Lymphocytes (1.2-3.4) k/cumm Absolute Monocytes (0.11-0.7) k/cumm Sodium 133 L (136-145) mmol/L Chloride (98-107) mmol/L Glucose 126 H (70-100) mg/dL Alkaline Phosphatase 45 L (46-116) U/L Albumin 3.3 L (3.4-5.0) g/dL Urine Ketones (Negative) mg/dL Vital Signs Temperature 36.7 C 03/10/19 11:28 Temperature Source Tympanic 03/10/19 11:28 Pulse 76 03/10/19 11:28 Pulse Rhythm Regular 03/10/19 11:07 Pulse 101 H 03/09/19 19:10 Respiratory Rate 21 03/10/19 11:28 Respiratory Effort 03/10/19 11:07 Respiratory Depth Normal 03/10/19 11:07 Respiratory Pattern Normal 03/10/19 11:07 Blood Pressure 126/76 03/10/19 11:28 Blood Pressure Mean 81 03/09/19 19:00 Pulse Oximetry 92 L 03/10/19 11:28 Oxygen Delivery Method Room Air 03/10/19 11:28 Oxygen Flow Rate 0 03/10/19 11:28 Pain Level 9 03/10/19 14:27 Comment 03/10/19 04:19 Intake & Output 03/09/19 03/10/19 03/10/19 23:59 11:59 23:59 Intake Total 350 / 350 340 / 1080 740 / 1080 Output Total 150 / 150 100 / 100 Balance 200 / 200 240 / 980 740 / 980 Weight 48.534 kg 49.6 kg Intake: IV 350 / 350 100 / 100 Oral 240 / 980 740 / 980 Output: Urine 150 / 150 100 / 100 Other: Urine Color Straw Straw Urine Appearance Clear Clear Urine Odor None Stool Size Small Stool Characteristics Soft Formed Voiding Methods Toilet Toilet Laboratory Results WBC 11.15 k/cumm (4.4-10.8) H 03/10/19 07:04 RBC 4.95 m/cumm (4.00-5.20) 03/10/19 07:04 Hgb 14.1 g/dL (12.0-15.5) 03/10/19 07:04 Hct 40.7 % (36.0-46.0) 03/10/19 07:04 MCV 82.2 fL (80-95) 03/10/19 07:04 MCH 28.5 pg (27.0-33.0) 03/10/19 07:04 MCHC 34.6 g/dL (32.0-36.0) 03/10/19 07:04 RDW 13.2 % (11.7-14.6) 03/10/19 07:04 Plt Count 268 x1000/uL (130-400) 03/10/19 07:04 MPV 9.4 fL (8.0-11.0) 03/10/19 07:04 Immature Gran % 0.8 03/09/19 16:13 Neutrophils % 82.5 03/09/19 16:13 Lymphocytes % 6.2 03/09/19 16:13 Monocytes % 10.3 03/09/19 16:13 Eosinophils % 0.1 03/09/19 16:13 Basophils % 0.1 03/09/19 16:13 Absolute Neutrophils 11.10 k/cumm (1.2-6.7) H 03/09/19 16:13 Absolute Lymphocytes 0.83 k/cumm (1.2-3.4) L 03/09/19 16:13 Absolute Monocytes 1.39 k/cumm (0.11-0.7) H 03/09/19 16:13 Absolute Eosinophils 0.01 k/cumm (0.0-0.7) 03/09/19 16:13 Absolute Basophils 0.01 k/cumm (0.0-0.2) 03/09/19 16:13 Sodium 133 mmol/L (136-145) L 03/10/19 07:04 Potassium 4.2 mmol/L (3.5-5.1) 03/10/19 07:04 Chloride 100 mmol/L (98-107) 03/10/19 07:04 Carbon Dioxide 23.0 mmol/L (21.0-32.0) 03/10/19 07:04 Anion Gap 10.0 mmol/L (3-11) 03/10/19 07:04 BUN 11 mg/dL (7-18) 03/10/19 07:04 Creatinine 0.71 mg/dL (0.55-1.02) 03/10/19 07:04 Estimated GFR/1.73 m2 >= 60.00 (mL/min/1.73m2) 03/10/19 07:04 Glucose 126 mg/dL (70-100) H 03/10/19 07:04 Lactate 1.4 mmol/L (0.6-1.4) 03/09/19 17:18 Calcium 8.7 mg/dL (8.5-10.1) 03/10/19 07:04 Magnesium 2.2 mg/dL (1.8-2.4) 03/09/19 16:13 Total Bilirubin 0.4 mg/dL (0.2-1.0) 03/10/19 07:04 AST 18 U/L (15-37) 03/10/19 07:04 ALT 26 U/L (14-59) 03/10/19 07:04 Alkaline Phosphatase 45 U/L (46-116) L 03/10/19 07:04 Total Protein 7.3 g/dL (6.4-8.2) 03/10/19 07:04 Albumin 3.3 g/dL (3.4-5.0) L 03/10/19 07:04 Urine Color Stacey (Yellow) 03/10/19 03:50 Urine Clarity Clear (Clear) 03/10/19 03:50 Urine pH 7.0 (5-8) 03/10/19 03:50 Ur Specific Hazel 1.015 (1.005-1.025) 03/10/19 03:50 Urine Protein Negative mg/dL (Negative) 03/10/19 03:50 Urine Ketones Trace mg/dL (Negative) H 03/10/19 03:50 Urine Blood Negative (Negative) 03/10/19 03:50 Urine Nitrite Negative (Negative) 03/10/19 03:50 Urine Bilirubin Negative (Negative) 03/10/19 03:50 Urine Urobilinogen 0.2 EU/dL (Up TO 0.2) 03/10/19 03:50 Ur Leukocyte Esterase Negative (Negative) 03/10/19 03:50 Urine Glucose Negative mg/dL (Negative) 03/10/19 03:50
[2019-03-10] MEDS: Lidocaine 5% Patch TP (16:37)
[2019-03-10] MEDS: Ipratropium 0.5 MG/2.5 ML UPD VIAL UPD ×2 (18:14→23:14)
[2019-03-10] MEDS: AZITHROMYCIN 500 MG in Normal Saline 250 ML 250 MG IVPB (18:14)
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
[2019-03-10] MEDS: Bisacodyl 5 MG TABEC 10 MG PO (19:38)
[2019-03-10] MEDS: Benzonatate 200 MG CAP PO (19:40)
[2019-03-10] MEDS: guaiFENesin 600 MG TABCR PO (19:41)
[2019-03-10] MEDS: Docusate Sodium 100 MG CAP PO (19:41)
[2019-03-10] MEDS: LIDOCAINE Patch Removal TP (19:42)
[2019-03-10] MEDS: LORazepam 0.5 MG TAB PO (21:07)
[2019-03-11] VITALS (13 sets, daily range): BP systolic 129–145; BP diastolic 70–81; PULSE 76–87; RESP 1–20; TEMP 36.6–37.1; O2SAT 93–97
[2019-03-11] MEDS: oxyCODONE 10 MG TAB PO ×4 (04:13→20:02)
[2019-03-11] MEDS: Acetaminophen 325 MG TAB PO ×2 (04:15→09:57)
[2019-03-11] MEDS: Normal Saline Flush 10 ML SYR IVP ×4 (05:14→21:43)
[2019-03-11] MEDS: Heparin 5,000 UNITS/ML VIAL 5000 UNITS SC ×3 (05:14→21:42)
[2019-03-11] MEDS: CEFEPIME 2 GM in Normal Saline 100 ML IVPB ×2 (05:14→20:50)
[2019-03-11] MEDS: methylPREDNISolone SUCC 125 MG VIAL 60 MG IVP ×2 (05:14→14:05)
[2019-03-11 06:58] LABS: Abs Immature Grans 0.33 k/cumm (0.0-0.09); Absolute Basophil Count 0.02 k/cumm (0.0-0.2); Absolute Lymphocyte Count 0.79 k/cumm (1.2-3.4); Absolute Monocyte Count 1.39 k/cumm (0.11-0.7); Basophils % 0.1; HCT 38.3 % (36.0-46.0); HGB 13.5 g/dL (12.0-15.5); Immature Grans % 1.8; Lymphocytes % 4.4; Mean Corp. HGB Concentration 35.2 g/dL (32.0-36.0); Mean Corpuscular Volume 82.4 fL (80-95); Mean Platelet Volume 9.2 fL (8.0-11.0); Monocytes % 7.8; Neutrophils % 85.9; Platelet Count 345 x1000/uL (130-400); RBC 4.65 m/cumm (4.00-5.20); White Blood Cell Count 17.87 k/cumm (4.4-10.8)
[2019-03-11 06:59] LABS: Absolute Neutrophil Count 15.35 k/cumm (1.2-6.7)
[2019-03-11 07:18] LABS: Anion Gap 10.8 mmol/L (3-11); BUN 14 mg/dL (7-18); CO2 22.2 mmol/L (21.0-32.0); CREATININE 0.79 mg/dL (0.55-1.02); Calcium 8.8 mg/dL (8.5-10.1); Chloride 100 mmol/L (98-107); Glucose 127 mg/dL (70-100); Magnesium 2.1 mg/dL (1.8-2.4); Potassium 4.3 mmol/L (3.5-5.1); Sodium 133 mmol/L (136-145)
[2019-03-11] MEDS: Benzonatate 200 MG CAP PO ×3 (07:45→19:48)
[2019-03-11] MEDS: Lidocaine 5% Patch TP (07:45)
[2019-03-11] MEDS: Calcium 600mg/Vit D 200U TAB 2 TAB PO (07:45)
[2019-03-11] MEDS: buPROPion-XL 150 MG TABCR PO ×2 (07:45→19:47)
[2019-03-11] MEDS: Gabapentin 600 MG TAB PO ×3 (07:45→19:48)
[2019-03-11] MEDS: MELOXICAM 7.5 MG TAB PO ×2 (07:45→18:58)
[2019-03-11] MEDS: guaiFENesin 600 MG TABCR PO ×2 (07:45→19:48)
[2019-03-11] MEDS: Ascorbic Acid 500 MG TAB PO (07:46)
[2019-03-11] MEDS: Ferrous Gluconate 324 MG TAB PO ×2 (07:46→19:47)
[2019-03-11] MEDS: Venlafaxine 150 MG CAPCR PO (07:46)
[2019-03-11] MEDS: Pantoprazole 40 MG TABCR PO (07:46)
[2019-03-11] MEDS: Senna TAB 1 TAB PO ×2 (07:46→19:47)
[2019-03-11] MEDS: Docusate Sodium 100 MG CAP PO ×2 (07:46→19:48)
[2019-03-11] MEDS: Ipratropium 0.5 MG/2.5 ML UPD VIAL UPD ×3 (08:22→18:24)
--- NOTE | 2019-03-11 09:10 | IN_ITS ---
Date of service: 03/11/19 Time of Service: 08:44 PT Notes PT Inpatient Initial Evaluation Date: 03/25/2019 Referring Doctor: Princess Gomez MD PT Orders: PT CONSULT: Eval/treat for limited ability Precautions: Fall. Standard. Activity as tolerated. Patient Profile/Admitting Diagnosis: Patient is a 63-year-old female with past medical history significant for COPD and rheumatoid arthritis who presented to the ED on 03/09/2019 with a week long report of productive cough, shortness of breath, and generally feeling not well. Patient is diagnosed with pneumonia. PMHX: Medical History Anemia (Chronic) Anxiety (Chronic) Compression fracture of body of thoracic vertebra (Acute) Depression (Chronic) Diabetes mellitus (Chronic) due to previous high steroids. Not on any diabetes meds GERD (gastroesophageal reflux disease) (Chronic) Hx of cardiomyopathy (Acute) Insomnia (Acute) Leukocytosis (Acute) Muscle weakness (Acute) Osteoporosis (Chronic) Restless leg (Acute) Rheumatoid arthritis (Chronic) Tobacco abuse (Acute) Surgical History H/O spinal fusion (Acute) cervical and thoracic Social History/Home Situation: Patient is a long-term resident of a level III facility at the [facility] in [place], [place]. She is independent with facility ambulation using a single-point cane. Equipment Owned/DME: [facility] Subjective: Patient is agreeable to a PT consult. She verbalizes about how she is not completely satisfied with her place of residence right now as she states that majority of people living in the facility are about 30 years older than she is and that she is not able to do juicing of her vegetables as she used to as she elaborates that the facility would not allow for her to work inside their kitchen for safety reasons nor would they prepare the vegetable juice for her. She states that her plan of moving out has been in the works. She stated that she is more aware of her headache after ambulation activity with this PT for this session. 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 Ulnar deviation of the MCP joints of all fingers on both sides. Patient appeared cheerful and agreeable to PT consult. Marked atrophy of major muscle groups on BUE/LE. Mental Status: Alert and oriented x4 Pain: Patient reported headache that she is more aware of after ambulation activity ROM: Grossly 25%-50% available range of motion on B shoulders, hips, and knees, WFL for B elbows Strength: Right Upper Extremity: Shoulder flexors 3-/5. Shoulder abductors 3-/5. Elbow flexors 3/5. Elbow extensors 3/5. [employer] Department Supervisor weak but able to grasp handle of walker. Left Upper Extremity: Shoulder flexors 3-/5. Shoulder abductors 3-/5. Elbow flexors 3/5. Elbow extensors 3/5. Bit And Shank Department Supervisor weak but able to grasp handle of walker. Right Lower Extremity: Hip flexors 3-/5. Hip abductors 3-/5. Knee flexors 3-/5. Knee extensors 3-/5. Ankle dorsiflexors 3-/5. Ankle plantarflexors 3-/5. Left Lower Extremity: Hip flexors 3-/5. Hip abductors 3-/5. Knee flexors 3-/5. Knee extensors 3-/5. Ankle dorsiflexors 3-/5. Ankle plantarflexors 3-/5. Sensation: Intact as to pain and pressure on bilateral lower extremities. Bed Mobility/Transfers: Rolling SBA Supine to sit SBA Sit to supine SBA Sit to stand SBA Stand to sit SBA Bed to chair SBA Chair to bed SBA Gait: Patient was able to tolerate level surface ambulation of 120 feet +30 feet using front wheeled walker with full weight bearing requiring only CGA of this PT with decreased dorsiflexion and increase pronation of the ankles bilaterally. Decreased gait velocity, decreased step length, decreased step height observed. Balance: Static Sitting: Normal Dynamic Sitting: Normal Static Standing: Good Dynamic Standing: Fair Special Tests: Mobility Limitations Standardized Measure [facility] AM-PAC 6 clicks Basic Mobility Inpatient Short Form: Raw Score: 21 CMS Score: 29% deficit Informed Consent/Education: Patient instructed in purpose of PT consult and plan of care. Assessment: Patient is a 63-year-old female with past medical history significant for COPD and rheumatoid arthritis who presented to the ED on 03/09/2019 with a week long report of productive cough, shortness of breath, and generally feeling not well. Patient is diagnosed with pneumonia. Patient did not require extensive assistance with mobility task performance using a front- wheeled walker. She was pleasant and cooperative. She hopes to ultimately be able to move out of the [facility] and find her own home eventually. Considering her co-morbidities however, she may not be successful to be living alone. A level III facility will be the most appropriate and safest discharge destination for her at this time. Her prognosis is fair. Patient presents with clinical signs and symptoms consistent with current/admitting diagnoses that have resulted to mobility limitations, gait instability, generalized weakness, and impairment of motor control as demonstrated by the following impairment level findings: 1. Decreased strength to B LE major muscle groups 2. Impaired standing balance 3. Impaired activity tolerance 4. Limitation of joint range of motion in due to late stage rheumatoid arthritis Impairments are contributing to the following functional limitations: 1. Dependent bed mobility skills 2. Increased dependence with transfers 3. Inability to safely ambulate without assistive device and physical assistance 4. Increase completion time for mobility ADL performance 5. Increased fall risk 6. Inability to negotiate steps alone safely Patient is assessed as a [id number] moderate complexity based on the following: History: Patient is a 63-year-old female with past medical history significant for COPD and rheumatoid arthritis who presented to the ED on 03/09/2019 with a week long report of productive cough, shortness of breath, and generally feeling not well. Patient is diagnosed with pneumonia. Examination: Demonstrable impairment in strength, balance, and activity tolerance with underlying impairments and functional limitations as documented above Presentation:Evolving Decision Makin moderate complexity Goals: Goals X1 week 1. Supine-Sit independent 2. Sit-Supine independent 3. Sit-Stand independent 4. Stand-Sit independent 5. Bed-Chair independent 6. Chair-Bed independent 7. Independent gait on level surface with use of single-point cane for at least 300 feet without report of pain nor dyspnea 8. Independent stair negotiation while holding onto bilateral rails for at least 10 steps without report of pain nor dyspnea 9. Independent with home exercise program 10. Good static and dynamic standing balance/tolerance Plan of Care/Treatment Plan: 1-2x/day, 7 days/week x 1 week. Plan of care has been reviewed with the STRICKLER ATTENDANT providing the service under Physical Therapy direction. Initiate Physical Therapy intervention for strengthening, bed mobility, transfers, gait, stairs, balance training, use of assistive device. DISCHARGE RECOMMENDATIONS: Patient will benefit from home health PT services in order to progress mobility level using a single-point cane, identify additional equipment needs, and establish a functional maintenance program that will increase ability of patient to remain in a level 3 facility. TREATMENT CODE/TIME: 78792 x22 minutes beginning at 8:44 AM. Thank you very much for this referral. Jacqueline Gtz PT, DPT, CLT [facility]
--- NOTE | 2019-03-11 11:27 | CMPROGNOTE_ITS ---
Care Management Progress Note S/O: Tata was crying in pain, reporting a 10/10 headache. Tata also reported wanting a new PCP because Dr. Munoz would not increase her pain medications. CM offered to request Tata to switch to another provider at [facility] but Herminia did not feel comfortable to do so. CM offered Pain Clinic referral but Herminia reported she had done that before and was not interested. CM offer [facility], but Herminia was uninterested. CM provided supportive listening and reported to the RN who reported Tata is currently on Oxycodone and Tylenol BID and is due for her next dose at 1600. RN reported she would discuss with MD, and shared that Tata has chronic pain and multiple past surgeries. CM continues to follow. A: 63 year old female admitted to [facility] P: Tata will be discharged home back to the [facility] when medically stable per provider. She will follow up with her PCP and discharge plan of care. Anticipate she will transport via [facility], coordinated by [facility]. CM will continue to follow.
--- NOTE | 2019-03-11 15:21 | W.PM.PROGNOT ---
Date of Service Date of service: 03/11/19 Time of Service: 15:21 Assessment and Plan Assessment and plan (1) Pneumonia: Status: Acute Assessment and plan: Clinically improving. RLL pneumonia, present on admission, In an immunocompramised patient. On azithromycin/cefepime Day 3 - will continue. Sputum culture with corynebacterium spp and fungus - further speciation pending. Blood cultures NGTD. Start to taper steroids, continue nebs, antitussives. Qualifiers: Pneumonia type: due to unspecified organism Laterality: right Lung location: lower lobe of lung Qualified Code(s): J18.1 - Lobar pneumonia, unspecified organism (2) Acute exacerbation of chronic obstructive pulmonary disease (COPD): Status: Acute Assessment and plan: As above (3) Rheumatoid arthritis: Status: Chronic Assessment and plan: The patient is on chronic steroids - we will slowly wean her to her home dose. PT consulted Continue outpatient pain management. Qualifiers: Rheumatoid arthritis location: multiple sites Rheumatoid factor presence: unspecified presence Qualified Code(s): M06.9 - Rheumatoid arthritis, unspecified (4) Anxiety: Status: Chronic Assessment and plan: Chronic. No change in tx (5) Chronic pain syndrome: Status: Chronic Assessment and plan: Continue home regimen - in addition, provide 1 dose of toradol for her headache. (6) DVT prophylaxis: Status: Acute Assessment and plan: Heparin SC (7) Discharge planning issues: Status: Acute Assessment and plan: DNR/DNI. Palliative care patient as outpatient Subjective Subjective Interval history since last seen: Complains of a headache on top of her head that the tylenol has not helped. She feels nauseated from the headache. She never gets headaches/migraines. This is different. She is also having some neck pain. Her breathing is better today. Denies chest pain, abdominal pain. Has had a small BM and feels less bloated/constipated. Exam Narrative Exam Narrative: General: very pleasant middle-aged female, tearful today, A&Ox3 HEENT: EOMI, MMM Heart: RRR, no m/r/g Lungs: wheezing on auscultation B - improved GI: abdomen is soft, nontender, nondistended Extremities: no e/c/c BLE's Objective Objective Clinical Data: Abnormal lab results 03/11/19 03/11/19 Range/Units 06:25 06:25 WBC 17.87 H D (4.4-10.8) k/cumm Absolute Neutrophils 15.35 H (1.2-6.7) k/cumm Absolute Lymphocytes 0.79 L (1.2-3.4) k/cumm Absolute Monocytes 1.39 H (0.11-0.7) k/cumm Sodium 133 L (136-145) mmol/L Glucose 127 H (70-100) mg/dL Vital Signs Temperature 36.7 C 03/11/19 12:23 Temperature Source Tympanic 03/11/19 12:23 Pulse 79 03/11/19 12:23 Pulse Rhythm Regular 03/11/19 08:04 Pulse 101 H 03/09/19 19:10 Respiratory Rate 17 03/11/19 12:23 Respiratory Effort Short of Breath 03/11/19 08:04 Respiratory Depth Normal 03/11/19 08:04 Respiratory Pattern Normal 03/11/19 08:04 Blood Pressure 132/77 03/11/19 12:23 Blood Pressure Mean 81 03/09/19 19:00 Pulse Oximetry 94 L 03/11/19 12:23 Oxygen Delivery Method Room Air 03/11/19 12:23 Oxygen Flow Rate 0 03/11/19 12:23 Pain Level 7 03/11/19 12:23 Comment 03/10/19 04:19 Intake & Output 03/10/19 03/11/19 03/11/19 23:59 11:59 23:59 Intake Total 1080 / 1420 920 / 1180 260 / 1180 Balance 1080 / 1320 920 / 1180 260 / 1180 Weight 51.4 kg Intake: IV 100 / 200 370 / 390 20 / 390 Oral 980 / 1220 550 / 790 240 / 790 Other: Urine Color Yellow Urine Appearance Clear Clear Urine Odor Normal Comment No hat; urine clear. pt denies sx. Voiding Methods Toilet Laboratory Results WBC 17.87 k/cumm (4.4-10.8) H D 03/11/19 06:25 RBC 4.65 m/cumm (4.00-5.20) 03/11/19 06:25 Hgb 13.5 g/dL (12.0-15.5) 03/11/19 06:25 Hct 38.3 % (36.0-46.0) 03/11/19 06:25 MCV 82.4 fL (80-95) 03/11/19 06:25 MCH 29.0 pg (27.0-33.0) 03/11/19 06:25 MCHC 35.2 g/dL (32.0-36.0) 03/11/19 06:25 RDW 13.0 % (11.7-14.6) 03/11/19 06:25 Plt Count 345 x1000/uL (130-400) 03/11/19 06:25 MPV 9.2 fL (8.0-11.0) 03/11/19 06:25 Immature Gran % 1.8 03/11/19 06:25 Neutrophils % 85.9 03/11/19 06:25 Lymphocytes % 4.4 03/11/19 06:25 Monocytes % 7.8 03/11/19 06:25 Eosinophils % 0.0 03/11/19 06:25 Basophils % 0.1 03/11/19 06:25 Absolute Neutrophils 15.35 k/cumm (1.2-6.7) H 03/11/19 06:25 Absolute Lymphocytes 0.79 k/cumm (1.2-3.4) L 03/11/19 06:25 Absolute Monocytes 1.39 k/cumm (0.11-0.7) H 03/11/19 06:25 Absolute Eosinophils 0.00 k/cumm (0.0-0.7) 03/11/19 06:25 Absolute Basophils 0.02 k/cumm (0.0-0.2) 03/11/19 06:25 Sodium 133 mmol/L (136-145) L 03/11/19 06:25 Potassium 4.3 mmol/L (3.5-5.1) 03/11/19 06:25 Chloride 100 mmol/L (98-107) 03/11/19 06:25 Carbon Dioxide 22.2 mmol/L (21.0-32.0) 03/11/19 06:25 Anion Gap 10.8 mmol/L (3-11) 03/11/19 06:25 BUN 14 mg/dL (7-18) 03/11/19 06:25 Creatinine 0.79 mg/dL (0.55-1.02) 03/11/19 06:25 Estimated GFR/1.73 m2 >= 60.00 (mL/min/1.73m2) 03/11/19 06:25 Glucose 127 mg/dL (70-100) H 03/11/19 06:25 Lactate 1.4 mmol/L (0.6-1.4) 03/09/19 17:18 Calcium 8.8 mg/dL (8.5-10.1) 03/11/19 06:25 Magnesium 2.1 mg/dL (1.8-2.4) 03/11/19 06:25 Total Bilirubin 0.4 mg/dL (0.2-1.0) 03/10/19 07:04 AST 18 U/L (15-37) 03/10/19 07:04 ALT 26 U/L (14-59) 03/10/19 07:04 Alkaline Phosphatase 45 U/L (46-116) L 03/10/19 07:04 Total Protein 7.3 g/dL (6.4-8.2) 03/10/19 07:04 Albumin 3.3 g/dL (3.4-5.0) L 03/10/19 07:04 Urine Color Stacey (Yellow) 03/10/19 03:50 Urine Clarity Clear (Clear) 03/10/19 03:50 Urine pH 7.0 (5-8) 03/10/19 03:50 Ur Specific Eclectic 1.015 (1.005-1.025) 03/10/19 03:50 Urine Protein Negative mg/dL (Negative) 03/10/19 03:50 Urine Ketones Trace mg/dL (Negative) H 03/10/19 03:50 Urine Blood Negative (Negative) 03/10/19 03:50 Urine Nitrite Negative (Negative) 03/10/19 03:50 Urine Bilirubin Negative (Negative) 03/10/19 03:50 Urine Urobilinogen 0.2 EU/dL (Up TO 0.2) 03/10/19 03:50 Ur Leukocyte Esterase Negative (Negative) 03/10/19 03:50 Urine Glucose Negative mg/dL (Negative) 03/10/19 03:50
[2019-03-11] MEDS: Ketorolac 30 MG/ML VIAL IVP (15:34)
--- NOTE | 2019-03-11 16:49 | PT.INNT ---
Date of service: 03/11/19 Time of Service: 16:49 PT Notes Patient is seen for the afternoon PT session lying in bed with a cold pack on her head. She states that she has 9.5/10 headache that run across the top of her head. She refused services as she does not think that physical therapy will be able to help any about said complaint. Nurse is aware and has reached out to MD to address said issue. Will reassess patient tomorrow morning and proceed with session as patient is able to tolerate.
[2019-03-11] MEDS: AZITHROMYCIN 500 MG in Normal Saline 250 ML 250 MG IVPB (17:39)
[2019-03-11] MEDS: LIDOCAINE Patch Removal TP (19:48)
[2019-03-11] MEDS: LORazepam 0.5 MG TAB PO (21:42)
[2019-03-11] MEDS: methylPREDNISolone SUCC 125 MG VIAL 40 MG IVP (21:42)
[2019-03-12] VITALS (9 sets, daily range): BP systolic 132–146; BP diastolic 81–89; PULSE 73–100; RESP 2–24; TEMP 36.7–37.1; O2SAT 93–98
[2019-03-12] MEDS: Heparin 5,000 UNITS/ML VIAL 5000 UNITS SC ×3 (06:21→22:22)
[2019-03-12] MEDS: Normal Saline Flush 10 ML SYR IVP ×6 (06:22→22:23)
[2019-03-12] MEDS: methylPREDNISolone SUCC 125 MG VIAL 40 MG IVP ×3 (06:22→22:22)
[2019-03-12] MEDS: oxyCODONE 10 MG TAB PO ×4 (07:22→20:46)
[2019-03-12 07:23] LABS: HCT 38.9 % (36.0-46.0); HGB 13.6 g/dL (12.0-15.5); Mean Corpuscular Hemoglobin 28.9 pg (27.0-33.0); Mean Corpuscular Volume 82.8 fL (80-95); Mean Platelet Volume 9.1 fL (8.0-11.0); Platelet Count 396 x1000/uL (130-400); White Blood Cell Count 19.39 k/cumm (4.4-10.8)
[2019-03-12] MEDS: Venlafaxine 150 MG CAPCR PO (07:36)
[2019-03-12] MEDS: Ascorbic Acid 500 MG TAB PO (07:36)
[2019-03-12] MEDS: Calcium 600mg/Vit D 200U TAB 2 TAB PO (07:36)
[2019-03-12] MEDS: Gabapentin 600 MG TAB PO ×3 (07:36→19:45)
[2019-03-12] MEDS: buPROPion-XL 150 MG TABCR PO ×2 (07:37→19:45)
[2019-03-12] MEDS: Benzonatate 200 MG CAP PO ×3 (07:37→19:45)
[2019-03-12] MEDS: guaiFENesin 600 MG TABCR PO ×2 (07:37→19:45)
[2019-03-12] MEDS: Docusate Sodium 100 MG CAP PO ×2 (07:37→19:45)
[2019-03-12] MEDS: Senna TAB 1 TAB PO ×2 (07:37→19:45)
[2019-03-12] MEDS: Pantoprazole 40 MG TABCR PO (07:37)
[2019-03-12] MEDS: MELOXICAM 7.5 MG TAB PO (07:37)
[2019-03-12] MEDS: Ferrous Gluconate 324 MG TAB PO ×2 (07:37→19:45)
[2019-03-12] MEDS: Lidocaine 5% Patch TP (07:38)
[2019-03-12] MEDS: CEFEPIME 2 GM in Normal Saline 100 ML IVPB ×2 (07:40→19:45)
[2019-03-12 07:52] LABS: BUN 20 mg/dL (7-18); CREATININE 0.81 mg/dL (0.55-1.02); Calcium 9.2 mg/dL (8.5-10.1); Chloride 101 mmol/L (98-107); Glucose 99 mg/dL (70-100); Magnesium 2.2 mg/dL (1.8-2.4); Potassium 4.4 mmol/L (3.5-5.1); Sodium 133 mmol/L (136-145)
--- NOTE | 2019-03-12 10:10 | PT.INNT ---
Date of service: 03/12/19 Time of Service: 10:10 PT Notes 03/12/2019 Tata refused morning PT session reporting a significant headache, which was reported to nursing. Will attempt to resume PT services this afternoon.
[2019-03-12] MEDS: Acetaminophen 325 MG TAB PO ×2 (10:39→14:36)
--- NOTE | 2019-03-12 11:12 | CMPROGNOTE_ITS ---
Care Management Progress Note S/O: Tata continues to be closely monitored at this time. Tata has chronic pain and multiple past surgeries, she also has new onset headaches since the middle of last week, per Delia RN. Tata reports feeling her headaches are caused by pneumonia, which was the same case five years ago. CM continues to support Darrel and follow. A: 63 year old female admitted to [facility] P: Tata will be discharged home back to the [facility] when medically stable per provider. She will follow up with her PCP and discharge plan of care. Anticipate she will have new orders for [facility] PT through [facility]. Anticipate she will transport via [facility] or with [place] staff, coordinated by [facility]. CM will continue to follow.
[2019-03-12] MEDS: Ipratropium 0.5 MG/2.5 ML UPD VIAL UPD ×2 (11:24→17:53)
--- NOTE | 2019-03-12 14:52 | W.PM.PROGNOT ---
Date of Service Date of service: 03/12/19 Time of Service: 14:52 Assessment and Plan Assessment and plan (1) Pneumonia: Status: Acute Assessment and plan: Clinically improving. RLL pneumonia, present on admission, In an immunocompramised patient. On azithromycin/cefepime Day 4 - will continue. Sputum culture with corynebacterium spp and fungus - further speciation was apparently not done, but is being requested. Azithromycin would cover corynebacterium. Blood cultures NGTD. Keep steroid dose same, continue nebs, antitussives. Qualifiers: Pneumonia type: due to unspecified organism Laterality: right Lung location: lower lobe of lung Qualified Code(s): J18.1 - Lobar pneumonia, unspecified organism (2) Acute exacerbation of chronic obstructive pulmonary disease (COPD): Status: Acute Assessment and plan: As above (3) Rheumatoid arthritis: Status: Chronic Assessment and plan: The patient is on chronic steroids - we will slowly wean her to her home dose. PT consulted Continue outpatient pain management. Qualifiers: Rheumatoid arthritis location: multiple sites Rheumatoid factor presence: unspecified presence Qualified Code(s): M06.9 - Rheumatoid arthritis, unspecified (4) Anxiety: Status: Chronic Assessment and plan: Chronic. No change in tx (5) Chronic pain syndrome: Status: Chronic Assessment and plan: Continue home regimen - in addition, provide 1 dose of toradol for her headache. (6) DVT prophylaxis: Status: Acute Assessment and plan: Heparin SC (7) Discharge planning issues: Status: Acute Assessment and plan: DNR/DNI. Palliative care patient as outpatient Subjective Subjective Interval history since last seen: Ms Delatorre states that she has had pike sputum - more of it. Continues to report a headache - she states she had a headache last time when she had pneumonia too. Toradol really helped her yesterday. Denies dizziness, chest pain, nausea. Wheezing continues. Exam Narrative Exam Narrative: General: very pleasant middle-aged female, A&Ox3 HEENT: EOMI, MMM Heart: RRR, no m/r/g Lungs: wheezing on auscultation B - this sounds worse to me today GI: abdomen is soft, nontender, nondistended Extremities: no e/c/c BLE's Objective Objective Clinical Data: Abnormal lab results 11/07/19 11/07/19 Range/Units 07:05 07:05 WBC 19.39 H (4.4-10.8) k/cumm Sodium 133 L (136-145) mmol/L BUN 20 H D (7-18) mg/dL Vital Signs Temperature 37.1 C 03/12/19 11:20 Temperature Source Tympanic 03/12/19 11:20 Pulse 85 03/12/19 11:37 Pulse Rhythm Regular 03/12/19 00:05 Pulse 101 H 03/09/19 19:10 Respiratory Rate 16 03/12/19 11:37 Respiratory Effort Short of Breath 03/12/19 00:05 Respiratory Depth Normal 03/12/19 00:05 Respiratory Pattern Normal 03/12/19 00:05 Blood Pressure 137/81 03/12/19 11:20 Blood Pressure Mean 81 03/09/19 19:00 Pulse Oximetry 96 03/12/19 11:37 Oxygen Delivery Method Room Air 03/12/19 11:24 Oxygen Flow Rate 0 03/12/19 11:24 Pain Level 10 03/12/19 14:36 Comment 03/10/19 04:19 Intake & Output 03/11/19 03/12/19 03/12/19 23:59 11:59 23:59 Intake Total 1370 / 2290 110 / 110 Balance 1370 / 2290 110 / 110 Weight 51.1 kg Intake: IV 390 / 760 110 / 110 Oral 980 / 1530 Other: Urine Color Yellow Urine Appearance Clear Clear Stool Size Small Stool Characteristics Formed Voiding Methods Toilet Toilet Toilet Laboratory Results WBC 19.39 k/cumm (4.4-10.8) H 03/12/19 07:05 RBC 4.70 m/cumm (4.00-5.20) 03/12/19 07:05 Hgb 13.6 g/dL (12.0-15.5) 03/12/19 07:05 Hct 38.9 % (36.0-46.0) 03/12/19 07:05 MCV 82.8 fL (80-95) 03/12/19 07:05 MCH 28.9 pg (27.0-33.0) 03/12/19 07:05 MCHC 35.0 g/dL (32.0-36.0) 03/12/19 07:05 RDW 13.0 % (11.7-14.6) 03/12/19 07:05 Plt Count 396 x1000/uL (130-400) 03/12/19 07:05 MPV 9.1 fL (8.0-11.0) 03/12/19 07:05 Immature Gran % 1.8 03/11/19 06:25 Neutrophils % 85.9 03/11/19 06:25 Lymphocytes % 4.4 03/11/19 06:25 Monocytes % 7.8 03/11/19 06:25 Eosinophils % 0.0 03/11/19 06:25 Basophils % 0.1 03/11/19 06:25 Absolute Neutrophils 15.35 k/cumm (1.2-6.7) H 03/11/19 06:25 Absolute Lymphocytes 0.79 k/cumm (1.2-3.4) L 03/11/19 06:25 Absolute Monocytes 1.39 k/cumm (0.11-0.7) H 03/11/19 06:25 Absolute Eosinophils 0.00 k/cumm (0.0-0.7) 03/11/19 06:25 Absolute Basophils 0.02 k/cumm (0.0-0.2) 03/11/19 06:25 Sodium 133 mmol/L (136-145) L 03/12/19 07:05 Potassium 4.4 mmol/L (3.5-5.1) 03/12/19 07:05 Chloride 101 mmol/L (98-107) 03/12/19 07:05 Carbon Dioxide 23.0 mmol/L (21.0-32.0) 03/12/19 07:05 Anion Gap 9.0 mmol/L (3-11) 03/12/19 07:05 BUN 20 mg/dL (7-18) H D 03/12/19 07:05 Creatinine 0.81 mg/dL (0.55-1.02) 03/12/19 07:05 Estimated GFR/1.73 m2 >= 60.00 (mL/min/1.73m2) 03/12/19 07:05 Glucose 99 mg/dL (70-100) 03/12/19 07:05 Lactate 1.4 mmol/L (0.6-1.4) 03/09/19 17:18 Calcium 9.2 mg/dL (8.5-10.1) 03/12/19 07:05 Magnesium 2.2 mg/dL (1.8-2.4) 03/12/19 07:05 Total Bilirubin 0.4 mg/dL (0.2-1.0) 03/10/19 07:04 AST 18 U/L (15-37) 03/10/19 07:04 ALT 26 U/L (14-59) 03/10/19 07:04 Alkaline Phosphatase 45 U/L (46-116) L 03/10/19 07:04 Total Protein 7.3 g/dL (6.4-8.2) 03/10/19 07:04 Albumin 3.3 g/dL (3.4-5.0) L 03/10/19 07:04 Urine Color Stacey (Yellow) 03/10/19 03:50 Urine Clarity Clear (Clear) 03/10/19 03:50 Urine pH 7.0 (5-8) 03/10/19 03:50 Ur Specific [place] 1.015 (1.005-1.025) 03/10/19 03:50 Urine Protein Negative mg/dL (Negative) 03/10/19 03:50 Urine Ketones Trace mg/dL (Negative) H 03/10/19 03:50 Urine Blood Negative (Negative) 03/10/19 03:50 Urine Nitrite Negative (Negative) 03/10/19 03:50 Urine Bilirubin Negative (Negative) 03/10/19 03:50 Urine Urobilinogen 0.2 EU/dL (Up TO 0.2) 03/10/19 03:50 Ur Leukocyte Esterase Negative (Negative) 03/10/19 03:50 Urine Glucose Negative mg/dL (Negative) 03/10/19 03:50
--- NOTE | 2019-03-12 14:57 | PT.INNT ---
Date of service: 03/12/19 Time of Service: 14:57 PT Notes 03/12/2019 Tata refused afternoon PT, crying as she continues to report a significant headache, which was reported to nursing again this afternoon. Will attempt to resume PT services this afternoon.
[2019-03-12] MEDS: Levalbuterol 1.25 MG/3 ML UPD VIAL UPD (15:04)
[2019-03-12] MEDS: Ketorolac 30 MG/ML VIAL IVP ×2 (16:47→22:22)
[2019-03-12] MEDS: AZITHROMYCIN 500 MG in Normal Saline 250 ML 250 MG IVPB (17:54)
[2019-03-12] MEDS: LIDOCAINE Patch Removal TP (19:46)
[2019-03-12] MEDS: LORazepam 0.5 MG TAB PO (22:22)
[2019-03-13] VITALS (8 sets, daily range): BP systolic 128–150; BP diastolic 76–89; PULSE 67–92; RESP 2–20; TEMP 36–36.9; O2SAT 93–100
[2019-03-13] MEDS: methylPREDNISolone SUCC 125 MG VIAL 40 MG IVP ×3 (06:29→21:30)
[2019-03-13] MEDS: Heparin 5,000 UNITS/ML VIAL 5000 UNITS SC ×3 (06:29→21:20)
[2019-03-13] MEDS: Normal Saline Flush 10 ML SYR IVP ×6 (06:35→18:12)
[2019-03-13] MEDS: oxyCODONE 10 MG TAB PO ×3 (06:44→17:50)
[2019-03-13] MEDS: Alendronate 70 MG TAB PO (06:44)
[2019-03-13] MEDS: Ketorolac 30 MG/ML VIAL IVP ×2 (06:44→16:10)
[2019-03-13 07:14] LABS: Abs Immature Grans 1.08 k/cumm (0.0-0.09); HCT 42.6 % (36.0-46.0); HGB 14.4 g/dL (12.0-15.5); Mean Corp. HGB Concentration 33.8 g/dL (32.0-36.0); Mean Corpuscular Hemoglobin 28.2 pg (27.0-33.0); Mean Corpuscular Volume 83.4 fL (80-95); Platelet Count 488 x1000/uL (130-400); RBC 5.11 m/cumm (4.00-5.20); RBC Distribution Width 13.4 % (11.7-14.6); White Blood Cell Count 20.27 k/cumm (4.4-10.8)
[2019-03-13 07:26] LABS: Anion Gap 5.3 mmol/L (3-11); BUN 21 mg/dL (7-18); CO2 27.7 mmol/L (21.0-32.0); CREATININE 0.94 mg/dL (0.55-1.02); Calcium 9.4 mg/dL (8.5-10.1); Chloride 99 mmol/L (98-107); Estimated GFR 59.76 (mL/min/1.73m2); Glucose 97 mg/dL (70-100); Magnesium 2.3 mg/dL (1.8-2.4); Potassium 4.6 mmol/L (3.5-5.1); Sodium 132 mmol/L (136-145)
--- NOTE | 2019-03-13 07:50 | CHAPLAIN ---
Tata shooed me away after I introduced myself yesterday, but then said she was dealing with a headache and didn't want to talk and to come back later, so I will attempt to visit today.
[2019-03-13 07:58] LABS: Absolute Lymphocyte Count 1.01 k/cumm (1.2-3.4); Absolute Monocyte Count 2.64 k/cumm (0.11-0.7); Absolute Neutrophil Count 15.41 k/cumm (1.2-6.7)
[2019-03-13 07:59] LABS: Burr Cells (echinocyte) 2+; Diff Comment Manual Differential
[2019-03-13] MEDS: CEFEPIME 2 GM in Normal Saline 100 ML IVPB ×2 (09:03→20:15)
[2019-03-13] MEDS: Benzonatate 200 MG CAP PO ×3 (09:07→20:12)
[2019-03-13] MEDS: Calcium 600mg/Vit D 200U TAB 2 TAB PO (09:07)
[2019-03-13] MEDS: Gabapentin 600 MG TAB PO ×3 (09:07→20:14)
[2019-03-13] MEDS: Venlafaxine 150 MG CAPCR PO (09:07)
[2019-03-13] MEDS: Pantoprazole 40 MG TABCR PO (09:08)
[2019-03-13] MEDS: Docusate Sodium 100 MG CAP PO ×2 (09:08→20:14)
[2019-03-13] MEDS: Senna TAB 1 TAB PO ×2 (09:08→20:14)
[2019-03-13] MEDS: buPROPion-XL 150 MG TABCR PO ×2 (09:09→20:12)
[2019-03-13] MEDS: guaiFENesin 600 MG TABCR PO ×2 (09:09→20:12)
[2019-03-13] MEDS: Ferrous Gluconate 324 MG TAB PO ×2 (09:09→20:13)
[2019-03-13] MEDS: Ascorbic Acid 500 MG TAB PO (09:09)
[2019-03-13] MEDS: Lidocaine 5% Patch TP (09:09)
[2019-03-13] MEDS: LIDOCAINE Patch Removal 1 EACH TP (10:10)
--- NOTE | 2019-03-13 10:32 | DI.RAD_ITS ---
EXAM: XR CHEST 2V PA LATERAL INDICATION: follow up pneumonia. COMPARISON: XR CHEST 2V PA LATERAL from 03/09/2019 TECHNIQUE: 2D digital imaging was performed. FINDINGS: The heart size is within normal limits. Hardware is again noted in the spine. There are multiple bi lateral old rib fractures as well as a lower thoracic compression fracture. No infiltrate, effusion or pulmonary edema is seen. IMPRESSION: No acute abnormality.
[2019-03-13] MEDS: Ipratropium 0.5 MG/2.5 ML UPD VIAL UPD (11:15)
[2019-03-13] MEDS: Acetaminophen 325 MG TAB PO ×2 (11:58→18:10)
--- NOTE | 2019-03-13 12:04 | PT.INTREAT ---
Date of service: 03/13/19 Time of Service: 12:04 PT Notes Inpatient Physical Therapy Treatment Note [facility] Date: 03/13/19 PRECAUTIONS: Fall SUBJECTIVE: Tata states that she is feeling much better today, although she continues to have a headache. OBJECTIVE: PAIN: Patient c/o a headache as well as neck and B knee pain at rest. Nsg aware. BED MOBILITY/TRANSFERS Supine-sit: I Sit-supine: I Sit-stand: I Stand-sit: I GAIT Assistive Device: SPC Weight bearing: Full Assist: SBA Distance: 300' Deviation: Slow pace, genu varus, B foot eversion Static standing x5 minutes with SPC and SBA Static sitting at EOB x5 minutes ASSESSMENT: Patient tolerated session well without complaint. She was able to tolerate a progression in gait distance with SPC support and SBA. PLAN: Continue with PT's POC TREATMENT CODE/TIME: 30 minutes; 55721 x2
--- NOTE | 2019-03-13 13:45 | CMPROGNOTE_ITS ---
- If Service Date Differs Date of service: 03/13/19 Time of Service: 13:45 Care Management Progress Note S/O: Darrel, who prefers to be called Tata, expresses her unhappiness with having to return to the [facility]. She states she is not disabled and is not old enough to be in a fdc. Wilmer Dickerson of the [facility]) is working with Tata on resolving the housing issue. She reports having no family or social supports and feeling depressed over her situation. Tata continues to experience headaches and this is reported to nursing staff. CM continues to follow. A: Tata is a 63 year old female admitted to [facility] on 03/09/2019 for right lower lobe pneumonia and COPD. P: Tata will be discharged back to the [facility] when medically cleared by provider. She will follow up with her PCP and discharge plan of care. Anticipate she will have new orders for HH PT upon discharge and will resume case management services through the [facility]. CM will continue to follow.
--- NOTE | 2019-03-13 14:36 | PT.INNT ---
Date of service: 03/13/19 Time of Service: 14:36 PT Notes 03/13/19 Tata refused afternoon PT session x2. She is crying and reports that she has another terrible headache. Headache reported to nursing. Will attempt to resume PT services tomorrow morning.
[2019-03-13] MEDS: AZITHROMYCIN 500 MG in Normal Saline 250 ML 250 MG IVPB (18:13)
--- NOTE | 2019-03-13 18:53 | W.PM.PROGNOT ---
Date of Service Date of service: 03/13/19 Time of Service: 18:53 Assessment and Plan Assessment and plan (1) Pneumonia: Status: Acute Assessment and plan: Clinically improving - radiographically resolved. RLL pneumonia, present on admission, In an immunocompramised patient. On azithromycin/cefepime Day 5 - will continue to finish a 7 day course. Sputum culture with corynebacterium spp and fungus - further speciation pending. Azithromycin would cover corynebacterium. Blood cultures NGTD. Decrease steroids, continue nebs, antitussives. Qualifiers: Laterality: right Lung location: lower lobe of lung Pneumonia type: due to unspecified organism Qualified Code(s): J18.1 - Lobar pneumonia, unspecified organism (2) Acute exacerbation of chronic obstructive pulmonary disease (COPD): Status: Acute Assessment and plan: As above (3) Rheumatoid arthritis: Status: Chronic Assessment and plan: The patient is on chronic steroids - she alternates 8 and 9 mg daily - we will slowly wean her to her home dose. PT consulted Due to headaches, we temporarily stopped mobic and started toradol. She is expected to return to [facility] on discharge. Qualifiers: Rheumatoid arthritis location: multiple sites Rheumatoid factor presence: unspecified presence Qualified Code(s): M06.9 - Rheumatoid arthritis, unspecified (4) Anxiety: Status: Chronic Assessment and plan: Chronic. No change in tx (5) Chronic pain syndrome: Status: Chronic Assessment and plan: Continue home regimen (6) DVT prophylaxis: Status: Acute Assessment and plan: Heparin SC (7) Discharge planning issues: Status: Acute Assessment and plan: DNR/DNI. Palliative care patient as outpatient Expected to return home to [place] Subjective Subjective Interval history since last seen: Ms Delatorre states her breathing is a little bit better. She does feel like it is time for another breathing treatment though. Denies dizziness, headaches are better, denies chest pain, nausea, vomiting. Exam Narrative Exam Narrative: General: very pleasant middle-aged female, A&Ox3 HEENT: EOMI, MMM Heart: RRR, no m/r/g Lungs: wheezing on auscultation B - about the same as yesterday GI: abdomen is soft, nontender, nondistended Extremities: no e/c/c BLE's Objective Objective Clinical Data: Abnormal lab results 03/13/19 03/13/19 Range/Units 06:44 06:44 WBC 20.27 H (4.4-10.8) k/cumm Plt Count 488 H (130-400) x1000/uL Absolute Neutrophils 15.41 H (1.2-6.7) k/cumm Absolute Lymphocytes 1.01 L (1.2-3.4) k/cumm Absolute Monocytes 2.64 H (0.11-0.7) k/cumm Sodium 132 L (136-145) mmol/L BUN 21 H (7-18) mg/dL Vital Signs Temperature 36.4 C L 03/13/19 15:33 Temperature Source Tympanic 03/13/19 15:33 Pulse 85 03/13/19 15:33 Pulse Rhythm Regular 03/13/19 17:01 Pulse 101 H 03/09/19 19:10 Respiratory Rate 18 03/13/19 15:33 Respiratory Effort 03/13/19 17:01 Respiratory Depth Normal 03/13/19 17:01 Respiratory Pattern Normal 03/13/19 17:01 Blood Pressure 149/88 H 03/13/19 15:33 Blood Pressure Mean 81 03/09/19 19:00 Pulse Oximetry 93 L 03/13/19 15:33 Oxygen Delivery Method Room Air 03/13/19 15:33 Oxygen Flow Rate 0 03/13/19 15:33 Pain Level 10 03/13/19 18:10 Comment 03/13/19 04:00 Intake & Output 03/12/19 03/13/19 03/13/19 23:59 11:59 23:59 Intake Total 1200 / 1320 730 / 980 250 / 980 Balance 1200 / 1320 730 / 980 250 / 980 Weight 50.8 kg Intake: IV 360 / 480 120 / 130 10 / 130 Oral 840 / 840 610 / 850 240 / 850 Other: Urine Color Yellow Yellow Urine Appearance Clear Clear Clear Urine Odor Normal Comment independent with urination. Stool Size Moderate Stool Characteristics Formed Voiding Methods Toilet Toilet Toilet Laboratory Results WBC 20.27 k/cumm (4.4-10.8) H 03/13/19 06:44 RBC 5.11 m/cumm (4.00-5.20) 03/13/19 06:44 Hgb 14.4 g/dL (12.0-15.5) 03/13/19 06:44 Hct 42.6 % (36.0-46.0) 03/13/19 06:44 MCV 83.4 fL (80-95) 03/13/19 06:44 MCH 28.2 pg (27.0-33.0) 03/13/19 06:44 MCHC 33.8 g/dL (32.0-36.0) 03/13/19 06:44 RDW 13.4 % (11.7-14.6) 03/13/19 06:44 Plt Count 488 x1000/uL (130-400) H 03/13/19 06:44 MPV 9.0 fL (8.0-11.0) 03/13/19 06:44 Immature Gran % See Differential 03/13/19 06:44 Neutrophils % 76.0 03/13/19 06:44 Lymphocytes % 5.0 03/13/19 06:44 Monocytes % 13.0 03/13/19 06:44 Eosinophils % 0.0 03/13/19 06:44 Basophils % 0.0 03/13/19 06:44 Metamyelocytes % 1.0 % 03/13/19 06:44 Myelocytes % 5.0 % 03/13/19 06:44 Absolute Neutrophils 15.41 k/cumm (1.2-6.7) H 03/13/19 06:44 Absolute Lymphocytes 1.01 k/cumm (1.2-3.4) L 03/13/19 06:44 Absolute Monocytes 2.64 k/cumm (0.11-0.7) H 03/13/19 06:44 Absolute Eosinophils 0.00 k/cumm (0.0-0.7) 03/13/19 06:44 Absolute Basophils 0.00 k/cumm (0.0-0.2) 03/13/19 06:44 Differential Comment Manual differential 03/13/19 06:44 RBC Morphology See below 03/13/19 06:44 [place] Cells 2+ 03/13/19 06:44 Sodium 132 mmol/L (136-145) L 03/13/19 06:44 Potassium 4.6 mmol/L (3.5-5.1) 03/13/19 06:44 Chloride 99 mmol/L (98-107) 03/13/19 06:44 Carbon Dioxide 27.7 mmol/L (21.0-32.0) 03/13/19 06:44 Anion Gap 5.3 mmol/L (3-11) 03/13/19 06:44 BUN 21 mg/dL (7-18) H 03/13/19 06:44 Creatinine 0.94 mg/dL (0.55-1.02) 03/13/19 06:44 Estimated GFR/1.73 m2 59.76 (mL/min/1.73m2) 03/13/19 06:44 Glucose 97 mg/dL (70-100) 03/13/19 06:44 Lactate 1.4 mmol/L (0.6-1.4) 03/09/19 17:18 Calcium 9.4 mg/dL (8.5-10.1) 03/13/19 06:44 Magnesium 2.3 mg/dL (1.8-2.4) 03/13/19 06:44 Total Bilirubin 0.4 mg/dL (0.2-1.0) 03/10/19 07:04 AST 18 U/L (15-37) 03/10/19 07:04 ALT 26 U/L (14-59) 03/10/19 07:04 Alkaline Phosphatase 45 U/L (46-116) L 03/10/19 07:04 Total Protein 7.3 g/dL (6.4-8.2) 03/10/19 07:04 Albumin 3.3 g/dL (3.4-5.0) L 03/10/19 07:04 Urine Color [place] (Yellow) 03/10/19 03:50 Urine Clarity Clear (Clear) 03/10/19 03:50 Urine pH 7.0 (5-8) 03/10/19 03:50 Ur Specific [place] 1.015 (1.005-1.025) 03/10/19 03:50 Urine Protein Negative mg/dL (Negative) 03/10/19 03:50 Urine Ketones Trace mg/dL (Negative) H 03/10/19 03:50 Urine Blood Negative (Negative) 03/10/19 03:50 Urine Nitrite Negative (Negative) 03/10/19 03:50 Urine Bilirubin Negative (Negative) 03/10/19 03:50 Urine Urobilinogen 0.2 EU/dL (Up TO 0.2) 03/10/19 03:50 Ur Leukocyte Esterase Negative (Negative) 03/10/19 03:50 Urine Glucose Negative mg/dL (Negative) 03/10/19 03:50 CXR: No acute abnormality.
[2019-03-13] MEDS: Mylanta Suspension 30 ML CUP PO (20:11)
[2019-03-13] MEDS: LIDOCAINE Patch Removal TP (20:23)
[2019-03-13] MEDS: LORazepam 0.5 MG TAB PO (21:22)
[2019-03-14] VITALS (11 sets, daily range): BP systolic 125–152; BP diastolic 80–91; PULSE 79–100; RESP 1–22; TEMP 36–37; O2SAT 93–99
[2019-03-14 07:32] LABS: HCT 41.5 % (36.0-46.0); HGB 14.2 g/dL (12.0-15.5); Mean Corp. HGB Concentration 34.2 g/dL (32.0-36.0); Mean Corpuscular Hemoglobin 28.6 pg (27.0-33.0); Mean Corpuscular Volume 83.7 fL (80-95); Platelet Count 513 x1000/uL (130-400); RBC 4.96 m/cumm (4.00-5.20); RBC Distribution Width 13.3 % (11.7-14.6)
[2019-03-14] MEDS: Acetaminophen 325 MG TAB PO ×3 (07:36→19:36)
[2019-03-14] MEDS: oxyCODONE 10 MG TAB PO ×3 (07:36→19:36)
[2019-03-14] MEDS: predniSONE 5 MG, predniSONE 4 MG 9 MG PO (07:37)
[2019-03-14] MEDS: methylPREDNISolone SUCC 125 MG VIAL 40 MG IVP ×2 (07:37→19:35)
[2019-03-14 07:42] LABS: Anion Gap 6.4 mmol/L (3-11); BUN 20 mg/dL (7-18); CO2 27.6 mmol/L (21.0-32.0); CREATININE 0.77 mg/dL (0.55-1.02); Calcium 9.4 mg/dL (8.5-10.1); Chloride 101 mmol/L (98-107); Glucose 79 mg/dL (70-100); Magnesium 2.2 mg/dL (1.8-2.4); Potassium 4.6 mmol/L (3.5-5.1); Sodium 135 mmol/L (136-145)
[2019-03-14] MEDS: Docusate Sodium 100 MG CAP PO ×2 (07:48→19:38)
[2019-03-14] MEDS: Lidocaine 5% Patch TP (07:48)
[2019-03-14] MEDS: Pantoprazole 40 MG TABCR PO (07:49)
[2019-03-14] MEDS: Venlafaxine 150 MG CAPCR PO (07:49)
[2019-03-14] MEDS: Senna TAB 1 TAB PO ×2 (07:49→19:39)
[2019-03-14] MEDS: buPROPion-XL 150 MG TABCR PO ×2 (07:49→19:38)
[2019-03-14] MEDS: Ferrous Gluconate 324 MG TAB PO ×2 (07:49→19:38)
[2019-03-14] MEDS: Calcium 600mg/Vit D 200U TAB 2 TAB PO (07:49)
[2019-03-14] MEDS: Ascorbic Acid 500 MG TAB PO (07:49)
[2019-03-14] MEDS: Gabapentin 600 MG TAB PO ×3 (07:49→19:38)
[2019-03-14] MEDS: guaiFENesin 600 MG TABCR PO ×2 (07:49→19:38)
[2019-03-14] MEDS: Benzonatate 200 MG CAP PO ×3 (07:49→19:38)
[2019-03-14 07:53] LABS: Absolute Lymphocyte Count 0.29 k/cumm (1.2-3.4); Absolute Monocyte Count 4.34 k/cumm (0.11-0.7); Absolute Neutrophil Count 22.57 k/cumm (1.2-6.7); White Blood Cell Count 28.94 k/cumm (4.4-10.8)
[2019-03-14 07:54] LABS: Diff Comment Manual Differential; RBC Morphology Normal
[2019-03-14] MEDS: Heparin 5,000 UNITS/ML VIAL 5000 UNITS SC ×3 (07:57→21:40)
[2019-03-14] MEDS: CEFEPIME 2 GM in Normal Saline 100 ML IVPB ×2 (07:57→19:35)
[2019-03-14] MEDS: Ketorolac 30 MG/ML VIAL IVP ×2 (09:56→18:28)
[2019-03-14] MEDS: Normal Saline Flush 10 ML SYR IVP ×4 (09:57→19:39)
--- NOTE | 2019-03-14 11:11 | PT.INNT ---
Date of service: 03/14/19 Time of Service: 11:12 PT Notes 03/14/19 Tata refused morning PT session, requesting that we remove her from PT services. She reports that she has been ambulating within her room independently, and taking walks when she feels restless.
[2019-03-14] MEDS: Ipratropium 0.5 MG/2.5 ML UPD VIAL UPD ×2 (13:15→17:48)
--- NOTE | 2019-03-14 17:09 | CMPROGNOTE_ITS ---
Care Management Progress Note S/O: Tata was feeling very discouraged today. Said her headache has been bothering her and she's just overall worried about what is going to happen. Can't stand to be at because everyone is over 90 and I can't socialize. Feeling bad that she lost her home and everything she had because of her alcoholic ex- who is living on [address] now. [facility] is helping her and she did put in an application for the [facility] and hopes a room will open up for her. She asked to have PT stopped because she feels perfectly capable of ambulating on her own. A: 63 y.o. female admitted for pneumonia and COPD remains on Acute level of care today. P: Tata will be discharged back to the [facility] when medically cleared. She will follow up with her PCP and discharge plan of care. She will resume case management services through the [facility]. Transportation will be arranged through [facility].
[2019-03-14] MEDS: AZITHROMYCIN 500 MG in Normal Saline 250 ML 250 MG IVPB (17:35)
[2019-03-14] MEDS: LIDOCAINE Patch Removal TP (19:40)
--- NOTE | 2019-03-14 19:45 | PGE_ITS ---
Date of Service Date of service: 03/14/19 Time of Service: 19:46 Assessment and Plan Assessment and plan (1) Pneumonia: Status: Acute Assessment and plan: Clinical diagnosis of pneumonia, with initial and repeat CXR both negative for infiltrate or other acute pathology. Overall appears improved. ?Continue combination of cefepime and azithromycin, day #6 today. Plan for l ikely 7-10 day total course of antibiotic therapy. ?Blood cultures remain without growth, and sputum is showing growth of Rothia Mucilaginosa, noted to be normal jeff per [facility]. -Sputum also showing rare growth of fungus. Despite immunosuppression, there is no evidence of fungal infection by imaging - potentially colonization. ?Continue treatment of concurrent COPD exacerbation. Qualifiers: Pneumonia type: due to unspecified organism Laterality: right Lung location: lower lobe of lung Qualified Code(s): J18.1 - Lobar pneumonia, unspecified organism (2) COPD (chronic obstructive pulmonary disease): Status: Chronic Assessment and plan: Improved subjectively. ?Continue IV steroids for 1 more day, with plans of weaning to oral dosing tomorrow. ?Continue antibiotics as above. ?Continue home inhaler therapy, with Xopenex as needed. ?Plan on a slow steroid taper down to baseline home steroid dose. Qualifiers: COPD type: COPD with acute lower respiratory infection Qualified Code(s): J44.0 - Chronic obstructive pulmonary disease with (acute) lower respiratory infection (3) Rheumatoid arthritis: Status: Chronic Assessment and plan: Continue and plan on return to home steroid dosing. Patient apparently alternates between 8 and 9 mg daily. Continue physical therapy as consulted. Qualifiers: Rheumatoid arthritis location: multiple sites Rheumatoid factor presence: unspecified presence Qualified Code(s): M06.9 - Rheumatoid arthritis, unspecified (4) Chronic pain syndrome: Status: Chronic Assessment and plan: Chronic pain syndrome in setting of RA. Continue home regimen of long-acting morphine at bedtime, short acting oxycodone on as-needed basis, discontinue Toradol and continue home meloxicam. -Current complaints of headache are likely stemming from her chronic but acutely worsened neck pain that is now involving the posterior aspect of her head and spreading upwards and outwards. Will give a trial of muscle relaxants as well as topical Lidoderm and monitor. (5) DVT prophylaxis: Status: Acute Assessment and plan: SC heparin. Continue daily PPI therapy as well. (6) Advance directive on file: Status: Acute Assessment and plan: DNR/DNI. Subjective Subjective Interval history since last seen: 63-year-old woman with a prior history of RA on daily steroids, admitted from [facility] Emergency Department with a diagnosis of likely pulmonary infection with concurrent COPD exacerbation. Mrs. Delatorre has a past Medical History significant for RA previously managed with DMARD and immunosuppressive therapy, currently on steroids alone, prior tobacco use as well as COPD by imaging, GERD, and anxiety. She is a level 3 facility resident. The patient presented to the ED with complaints of cough with change in sputum, ongoing for approximately one week. Labwork was remarkable for leukocytosis that appears chronic in nature, essentially normal CMP, and normal lactate. Urinalysis was also checked and negative for infection. Although her CXR was initially interpreted by virtual radiology as mild basilar opacities consistent with atelectasis vs. infiltrates, the official interpretation was of no acute abnormalities. She was referred for admission for further evaluation and treatment. Following admission Mrs. Rojo has been maintained on broad-spectrum antibiotic therapy, with subsequent improvement in her respiratory symptoms. Her WBC continues to increase with IV steroid therapy. This morning she reports continued neck pain with concurrent headache, as well as constipation. No overnight events were reported. She remains afebrile. Exam Narrative Exam Narrative: General: Patient appears comfortable, AAOX3, NAD Neck: Supple CV: Regular, nontachycardic, S1S2, No rubs, murmurs, or gallops. Pulmonary: Mildly rhonchorous, worse at the bases, with minimal wheezing. Otherwise clear to auscultation. Abdomen: + Bowel Sounds, soft, nontender, nondistended Vascular: No lower extremity edema Psych: Normal mood and affect. Objective Objective Clinical Data: Abnormal lab results 03/14/19 03/14/19 Range/Units 06:25 06:25 WBC 28.94 H* D (4.4-10.8) k/cumm Plt Count 513 H (130-400) x1000/uL Absolute Neutrophils 22.57 H (1.2-6.7) k/cumm Absolute Lymphocytes 0.29 L (1.2-3.4) k/cumm Absolute Monocytes 4.34 H (0.11-0.7) k/cumm Sodium 135 L (136-145) mmol/L BUN 20 H (7-18) mg/dL Vital Signs Temperature 36.5 C 03/14/19 15:00 Temperature Source Tympanic 03/14/19 15:00 Pulse 90 03/14/19 15:00 Pulse Rhythm Regular 03/14/19 08:43 Pulse 101 H 03/09/19 19:10 Respiratory Rate 21 03/14/19 15:00 Respiratory Effort Non-Labored 03/14/19 16:04 Respiratory Depth Normal 03/14/19 16:04 Respiratory Pattern Normal 03/14/19 16:04 Blood Pressure 139/82 03/14/19 15:00 Blood Pressure Mean 81 03/09/19 19:00 Pulse Oximetry 94 L 03/14/19 15:00 Oxygen Delivery Method Room Air 03/14/19 15:00 Oxygen Flow Rate 0 03/14/19 15:00 Pain Level 10 03/14/19 19:36 Comment 03/13/19 04:00 Intake & Output 03/13/19 03/14/19 03/14/19 23:59 11:59 23:59 Intake Total 600 / 1330 1020 / 1530 510 / 1530 Balance 600 / 1330 1020 / 1530 510 / 1530 Weight 51.2 kg Intake: IV 360 / 480 140 / 170 30 / 170 Oral 240 / 850 880 / 1360 480 / 1360 Other: Urine Color Yellow Yellow Urine Appearance Clear Clear Urine Odor Normal Normal Comment Pt voiding ad leonardo. Denies sx. Stool Size Moderate Stool Characteristics Formed Brown Voiding Methods Toilet Toilet Laboratory Results WBC 28.94 k/cumm (4.4-10.8) H* D 03/14/19 06:25 RBC 4.96 m/cumm (4.00-5.20) 03/14/19 06:25 Hgb 14.2 g/dL (12.0-15.5) 03/14/19 06:25 Hct 41.5 % (36.0-46.0) 03/14/19 06:25 MCV 83.7 fL (80-95) 03/14/19 06:25 MCH 28.6 pg (27.0-33.0) 03/14/19 06:25 MCHC 34.2 g/dL (32.0-36.0) 03/14/19 06:25 RDW 13.3 % (11.7-14.6) 03/14/19 06:25 Plt Count 513 x1000/uL (130-400) H 03/14/19 06:25 MPV 9.0 fL (8.0-11.0) 03/14/19 06:25 Immature Gran % See Differential 03/14/19 06:25 Neutrophils % 78.0 03/14/19 06:25 Lymphocytes % 1.0 03/14/19 06:25 Monocytes % 15.0 03/14/19 06:25 Eosinophils % 0.0 03/14/19 06:25 Basophils % 0.0 03/14/19 06:25 Metamyelocytes % 1.0 % 03/14/19 06:25 Myelocytes % 4.0 % 03/14/19 06:25 Absolute Neutrophils 22.57 k/cumm (1.2-6.7) H 03/14/19 06:25 Absolute Lymphocytes 0.29 k/cumm (1.2-3.4) L 03/14/19 06:25 Absolute Monocytes 4.34 k/cumm (0.11-0.7) H 03/14/19 06:25 Absolute Eosinophils 0.00 k/cumm (0.0-0.7) 03/14/19 06:25 Absolute Basophils 0.00 k/cumm (0.0-0.2) 03/14/19 06:25 Differential Comment Manual differential 03/14/19 06:25 RBC Morphology Normal 03/14/19 06:25 Angella Cells 2+ 03/13/19 06:44 Sodium 135 mmol/L (136-145) L 03/14/19 06:25 Potassium 4.6 mmol/L (3.5-5.1) 03/14/19 06:25 Chloride 101 mmol/L (98-107) 03/14/19 06:25 Carbon Dioxide 27.6 mmol/L (21.0-32.0) 03/14/19 06:25 Anion Gap 6.4 mmol/L (3-11) 03/14/19 06:25 BUN 20 mg/dL (7-18) H 03/14/19 06:25 Creatinine 0.77 mg/dL (0.55-1.02) 03/14/19 06:25 Estimated GFR/1.73 m2 >= 60.00 (mL/min/1.73m2) 03/14/19 06:25 Glucose 79 mg/dL (70-100) 03/14/19 06:25 Lactate 1.4 mmol/L (0.6-1.4) 03/09/19 17:18 Calcium 9.4 mg/dL (8.5-10.1) 03/14/19 06:25 Magnesium 2.2 mg/dL (1.8-2.4) 03/14/19 06:25 Total Bilirubin 0.4 mg/dL (0.2-1.0) 03/10/19 07:04 AST 18 U/L (15-37) 03/10/19 07:04 ALT 26 U/L (14-59) 03/10/19 07:04 Alkaline Phosphatase 45 U/L (46-116) L 03/10/19 07:04 Total Protein 7.3 g/dL (6.4-8.2) 03/10/19 07:04 Albumin 3.3 g/dL (3.4-5.0) L 03/10/19 07:04 Urine Color Stacey (Yellow) 03/10/19 03:50 Urine Clarity Clear (Clear) 03/10/19 03:50 Urine pH 7.0 (5-8) 03/10/19 03:50 Ur Specific [place] 1.015 (1.005-1.025) 03/10/19 03:50 Urine Protein Negative mg/dL (Negative) 03/10/19 03:50 Urine Ketones Trace mg/dL (Negative) H 03/10/19 03:50 Urine Blood Negative (Negative) 03/10/19 03:50 Urine Nitrite Negative (Negative) 03/10/19 03:50 Urine Bilirubin Negative (Negative) 03/10/19 03:50 Urine Urobilinogen 0.2 EU/dL (Up TO 0.2) 03/10/19 03:50 Ur Leukocyte Esterase Negative (Negative) 03/10/19 03:50 Urine Glucose Negative mg/dL (Negative) 03/10/19 03:50
[2019-03-14] MEDS: LORazepam 0.5 MG TAB PO (21:40)
[2019-03-15] VITALS (10 sets, daily range): BP systolic 124–142; BP diastolic 70–89; PULSE 78–98; RESP 2–22; TEMP 36–37; O2SAT 94–100
[2019-03-15] MEDS: Ipratropium 0.5 MG/2.5 ML UPD VIAL UPD ×4 (00:16→17:18)
[2019-03-15] MEDS: Heparin 5,000 UNITS/ML VIAL 5000 UNITS SC ×3 (06:45→22:28)
[2019-03-15 07:40] LABS: HCT 41.1 % (36.0-46.0); HGB 14.2 g/dL (12.0-15.5); Mean Corp. HGB Concentration 34.5 g/dL (32.0-36.0); Mean Corpuscular Hemoglobin 28.8 pg (27.0-33.0); Mean Corpuscular Volume 83.4 fL (80-95); Mean Platelet Volume 8.8 fL (8.0-11.0); Platelet Count 544 x1000/uL (130-400); RBC 4.93 m/cumm (4.00-5.20); RBC Distribution Width 13.4 % (11.7-14.6)
[2019-03-15 07:44] LABS: BUN 20 mg/dL (7-18); CREATININE 0.89 mg/dL (0.55-1.02); Calcium 9.5 mg/dL (8.5-10.1); Chloride 98 mmol/L (98-107); Glucose 93 mg/dL (70-100); Magnesium 2.2 mg/dL (1.8-2.4); Potassium 4.6 mmol/L (3.5-5.1); Sodium 135 mmol/L (136-145)
[2019-03-15] MEDS: Lidocaine 5% Patch TP (08:07)
[2019-03-15] MEDS: Normal Saline Flush 10 ML SYR IVP ×2 (08:08→20:30)
[2019-03-15] MEDS: methylPREDNISolone SUCC 125 MG VIAL 40 MG IVP (08:09)
[2019-03-15] MEDS: CEFEPIME 2 GM in Normal Saline 100 ML IVPB ×2 (08:09→20:26)
[2019-03-15] MEDS: Calcium 600mg/Vit D 200U TAB 2 TAB PO (08:10)
[2019-03-15] MEDS: Benzonatate 200 MG CAP PO ×3 (08:10→20:27)
[2019-03-15] MEDS: buPROPion-XL 150 MG TABCR PO ×2 (08:10→20:27)
[2019-03-15] MEDS: Docusate Sodium 100 MG CAP PO ×2 (08:10→20:27)
[2019-03-15] MEDS: predniSONE 5 MG, predniSONE 4 MG 9 MG PO (08:10)
[2019-03-15] MEDS: guaiFENesin 600 MG TABCR PO ×2 (08:10→20:27)
[2019-03-15 08:11] LABS: Absolute Lymphocyte Count 1.55 k/cumm (1.2-3.4); Absolute Monocyte Count 2.33 k/cumm (0.11-0.7); Absolute Neutrophil Count 32.64 k/cumm (1.2-6.7); White Blood Cell Count 38.86 k/cumm (4.4-10.8)
[2019-03-15] MEDS: Pantoprazole 40 MG TABCR PO (08:11)
[2019-03-15] MEDS: Senna TAB 1 TAB PO ×2 (08:11→20:27)
[2019-03-15] MEDS: Venlafaxine 150 MG CAPCR PO (08:11)
[2019-03-15] MEDS: Ascorbic Acid 500 MG TAB PO (08:11)
[2019-03-15] MEDS: Acetaminophen 325 MG TAB PO (08:11)
[2019-03-15] MEDS: Ferrous Gluconate 324 MG TAB PO ×2 (08:11→20:27)
[2019-03-15] MEDS: Gabapentin 600 MG TAB PO ×3 (08:11→20:27)
[2019-03-15 08:12] LABS: Absolute Eosinophil Count 0.39 k/cumm (0.0-0.7); Diff Comment Manual Differential; RBC Morphology Normal
[2019-03-15] MEDS: oxyCODONE 10 MG TAB PO ×4 (08:12→20:26)
--- NOTE | 2019-03-15 15:06 | PGE_ITS ---
Date of Service Date of service: 03/15/19 Time of Service: 15:06 Assessment and Plan Assessment and plan (1) Pneumonia: Status: Acute Assessment and plan: Clinical diagnosis of pneumonia, with initial and repeat CXR both negative for infiltrate or other acute pathology. Overall appears improved. ?Continue combination of cefepime and azithromycin, day #7 today. Plan for l ikely 7-10 day total course of antibiotic therapy. ?Blood cultures remain without growth, and sputum is showing growth of Rothia Mucilaginosa, noted to be normal jeff per [facility]. -Sputum also showing rare growth of fungus. Despite immunosuppression, there is no evidence of fungal infection by imaging - potentially colonization. ?Continue treatment of concurrent COPD exacerbation. Appears to be improving. Qualifiers: Pneumonia type: due to unspecified organism Laterality: right Lung location: lower lobe of lung Qualified Code(s): J18.1 - Lobar pneumonia, unspecified organism (2) COPD (chronic obstructive pulmonary disease): Status: Chronic Assessment and plan: Improved subjectively. ?Discontinue IV steroids and change to prednisone. ?Continue antibiotics as above. ?Continue home inhaler therapy, with Xopenex as needed. ?Plan on a slow steroid taper down to baseline home steroid dose. Qualifiers: COPD type: COPD with acute lower respiratory infection Qualified Code(s): J44.0 - Chronic obstructive pulmonary disease with (acute) lower respiratory infection (3) Rheumatoid arthritis: Status: Chronic Assessment and plan: Continue and plan on return to home steroid dosing. Patient apparently alternates between 8 and 9 mg daily. Continue physical therapy as consulted. Qualifiers: Rheumatoid arthritis location: multiple sites Rheumatoid factor presence: unspecified presence Qualified Code(s): M06.9 - Rheumatoid arthritis, unspecified (4) Chronic pain syndrome: Status: Chronic Assessment and plan: Chronic pain syndrome in setting of RA. Continue home regimen of long-acting morphine at bedtime, short acting oxycodone on as- needed basis, and home dose of meloxicam. Toradol discontinued. -Headache and neck pain improved on trial of muscle relaxants and topical Lidoderm and monitor. (5) DVT prophylaxis: Status: Acute Assessment and plan: SC heparin. Continue daily PPI therapy as well. (6) Advance directive on file: Status: Acute Assessment and plan: DNR/DNI. Subjective Subjective Interval history since last seen: 63-year-old woman with a prior history of RA on daily steroids, admitted from [facility] Emergency Department with a diagnosis of likely pulmonary infection with concurrent COPD exacerbation. Mrs. Delatorre has a past Medical History significant for RA previously managed with DMARD and immunosuppressive therapy, currently on steroids alone, prior tobacco use as well as COPD by imaging, GERD, and anxiety. She is a resident at a level 3 facility. The patient presented to the ED with complaints of cough with change in sputum, ongoing for approximately one week. Labwork was remarkable for leukocytosis that appears chronic in nature, essentially normal CMP, and normal lactate. Urinalysis was also checked and negative for infection. Although her CXR was initially interpreted by virtual radiology as mild basilar opacities consistent with atelectasis vs. infiltrates, the official interpretation was of no acute abnormalities. She was referred for admission for further evaluation and treatment. Following admission Mrs. Rojo has been maintained on broad-spectrum antibiotic therapy, with subsequent improvement in her respiratory symptoms. Her WBC continues to increase with IV steroid therapy, but she continues to appear improved clinically. Repeat Xray 4 days after admission remained negative for infection. This morning she reports improvement in her neck pain with near resolution of her headache. No overnight events were reported. She remains afebrile. Exam Narrative Exam Narrative: General: Patient appears comfortable, AAOX3, NAD Neck: Supple CV: Regular, nontachycardic, S1S2, No rubs, murmurs, or gallops. Pulmonary: Minimally rhonchorous, improved from prior. Minimal prior wheezing improved. Good air entry noted. Abdomen: + Bowel Sounds, soft, nontender, nondistended Vascular: No lower extremity edema Psych: Normal mood and affect. Objective Objective Clinical Data: Abnormal lab results 03/15/19 03/15/19 Range/Units 06:58 06:58 WBC 38.86 H* D (4.4-10.8) k/cumm Plt Count 544 H (130-400) x1000/uL Absolute Neutrophils 32.64 H (1.2-6.7) k/cumm Absolute Monocytes 2.33 H (0.11-0.7) k/cumm Sodium 135 L (136-145) mmol/L BUN 20 H (7-18) mg/dL Vital Signs Temperature 37 C 03/15/19 12:11 Temperature Source Temporal Artery Scan 03/15/19 12:11 Pulse 94 H 03/15/19 12:11 Pulse Rhythm Regular 03/15/19 08:00 Pulse 101 H 03/09/19 19:10 Respiratory Rate 17 03/15/19 12:11 Respiratory Effort 03/15/19 08:00 Respiratory Depth Normal 03/15/19 08:00 Respiratory Pattern Normal 03/15/19 08:00 Blood Pressure 124/79 03/15/19 12:11 Blood Pressure Mean 81 03/09/19 19:00 Pulse Oximetry 97 03/15/19 12:11 Oxygen Delivery Method Room Air 03/15/19 12:57 Oxygen Flow Rate 0 03/15/19 12:57 Pain Level 8 03/15/19 15:05 Comment 03/13/19 04:00 Intake & Output 03/14/19 03/15/19 03/15/19 23:59 11:59 23:59 Intake Total 610 / 1630 350 / 350 Balance 610 / 1630 350 / 350 Weight 51.4 kg Intake: IV 130 / 270 350 / 350 Oral 480 / 1360 Other: Urine Color Yellow Yellow Yellow Urine Appearance Clear Clear Urine Odor Normal Stool Size Moderate Stool Characteristics Formed Brown Voiding Methods Toilet Toilet Toilet Laboratory Results WBC 38.86 k/cumm (4.4-10.8) H* D 03/15/19 06:58 RBC 4.93 m/cumm (4.00-5.20) 03/15/19 06:58 Hgb 14.2 g/dL (12.0-15.5) 03/15/19 06:58 Hct 41.1 % (36.0-46.0) 03/15/19 06:58 MCV 83.4 fL (80-95) 03/15/19 06:58 MCH 28.8 pg (27.0-33.0) 03/15/19 06:58 MCHC 34.5 g/dL (32.0-36.0) 03/15/19 06:58 RDW 13.4 % (11.7-14.6) 03/15/19 06:58 Plt Count 544 x1000/uL (130-400) H 03/15/19 06:58 MPV 8.8 fL (8.0-11.0) 03/15/19 06:58 Immature Gran % See Differential 03/15/19 06:58 Neutrophils % 80.0 03/15/19 06:58 Band Neutrophils % 4.0 % 03/15/19 06:58 Lymphocytes % 4.0 03/15/19 06:58 Monocytes % 6.0 03/15/19 06:58 Eosinophils % 1.0 03/15/19 06:58 Basophils % 0.0 03/15/19 06:58 Metamyelocytes % 2.0 % 03/15/19 06:58 Myelocytes % 3.0 % 03/15/19 06:58 Absolute Neutrophils 32.64 k/cumm (1.2-6.7) H 03/15/19 06:58 Absolute Lymphocytes 1.55 k/cumm (1.2-3.4) 03/15/19 06:58 Absolute Monocytes 2.33 k/cumm (0.11-0.7) H 03/15/19 06:58 Absolute Eosinophils 0.39 k/cumm (0.0-0.7) 03/15/19 06:58 Absolute Basophils 0.00 k/cumm (0.0-0.2) 03/15/19 06:58 Differential Comment Manual differential 03/15/19 06:58 RBC Morphology Normal 03/15/19 06:58 [place] Cells 2+ 03/13/19 06:44 Sodium 135 mmol/L (136-145) L 03/15/19 06:58 Potassium 4.6 mmol/L (3.5-5.1) 03/15/19 06:58 Chloride 98 mmol/L (98-107) 03/15/19 06:58 Carbon Dioxide 29.0 mmol/L (21.0-32.0) 03/15/19 06:58 Anion Gap 8.0 mmol/L (3-11) 03/15/19 06:58 BUN 20 mg/dL (7-18) H 03/15/19 06:58 Creatinine 0.89 mg/dL (0.55-1.02) 03/15/19 06:58 Estimated GFR/1.73 m2 >= 60.00 (mL/min/1.73m2) 03/15/19 06:58 Glucose 93 mg/dL (70-100) 03/15/19 06:58 Lactate 1.4 mmol/L (0.6-1.4) 03/09/19 17:18 Calcium 9.5 mg/dL (8.5-10.1) 03/15/19 06:58 Magnesium 2.2 mg/dL (1.8-2.4) 03/15/19 06:58 Total Bilirubin 0.4 mg/dL (0.2-1.0) 03/10/19 07:04 AST 18 U/L (15-37) 03/10/19 07:04 ALT 26 U/L (14-59) 03/10/19 07:04 Alkaline Phosphatase 45 U/L (46-116) L 03/10/19 07:04 Total Protein 7.3 g/dL (6.4-8.2) 03/10/19 07:04 Albumin 3.3 g/dL (3.4-5.0) L 03/10/19 07:04 Urine Color Stacey (Yellow) 03/10/19 03:50 Urine Clarity Clear (Clear) 03/10/19 03:50 Urine pH 7.0 (5-8) 03/10/19 03:50 Ur Specific [place] 1.015 (1.005-1.025) 03/10/19 03:50 Urine Protein Negative mg/dL (Negative) 03/10/19 03:50 Urine Ketones Trace mg/dL (Negative) H 03/10/19 03:50 Urine Blood Negative (Negative) 03/10/19 03:50 Urine Nitrite Negative (Negative) 03/10/19 03:50 Urine Bilirubin Negative (Negative) 03/10/19 03:50 Urine Urobilinogen 0.2 EU/dL (Up TO 0.2) 03/10/19 03:50 Ur Leukocyte Esterase Negative (Negative) 03/10/19 03:50 Urine Glucose Negative mg/dL (Negative) 03/10/19 03:50
--- NOTE | 2019-03-15 19:34 | PDOC.CMPRO ---
Care Management Progress Note /O: Tata was feeling very discouraged today. Said her headache has been bothering her and she's just overall worried about what is going to happen. Can't stand to be at because everyone is over 90 and I can't socialize. Feeling bad that she lost her home and everything she had because of her alcoholic ex- who is living on [address] now. [facility] is helping her and she did put in an application for the [facility] and hopes a room will open up for her. She asked to have PT stopped because she feels perfectly capable of ambulating on her own. A: 63 y.o. female admitted for pneumonia and COPD remains on Acute level of care today. P: Tata will be discharged back to the [facility] when medically cleared. She will follow up with her PCP and discharge plan of care. She will resume case management services through the [facility]. Transportation will be arranged through [facility].
[2019-03-15] MEDS: predniSONE 20 MG TAB 40 MG PO (20:27)
[2019-03-15] MEDS: LIDOCAINE Patch Removal TP (20:28)
[2019-03-15] MEDS: LORazepam 0.5 MG TAB PO (22:28)
[2019-03-16] VITALS (7 sets, daily range): BP systolic 111–121; BP diastolic 75–89; PULSE 93–113; RESP 4–18; TEMP 36.1–37; O2SAT 92–94
[2019-03-16] MEDS: Mylanta Suspension 30 ML CUP PO (00:32)
[2019-03-16] MEDS: Ipratropium 0.5 MG/2.5 ML UPD VIAL UPD (00:33)
[2019-03-16] MEDS: Heparin 5,000 UNITS/ML VIAL 5000 UNITS SC ×3 (06:10→22:01)
[2019-03-16] MEDS: oxyCODONE 10 MG TAB PO ×4 (06:27→23:44)
[2019-03-16 07:43] LABS: Abs Immature Grans 7.12 k/cumm (0.0-0.09); HCT 42.2 % (36.0-46.0); HGB 14.5 g/dL (12.0-15.5); Mean Corp. HGB Concentration 34.4 g/dL (32.0-36.0); Mean Corpuscular Hemoglobin 28.8 pg (27.0-33.0); Mean Corpuscular Volume 83.7 fL (80-95); Mean Platelet Volume 8.3 fL (8.0-11.0); Platelet Count 583 x1000/uL (130-400); RBC 5.04 m/cumm (4.00-5.20); RBC Distribution Width 13.5 % (11.7-14.6)
[2019-03-16 07:53] LABS: White Blood Cell Count 44.51 k/cumm (4.4-10.8)
[2019-03-16 08:02] LABS: Anion Gap 7.2 mmol/L (3-11); BUN 20 mg/dL (7-18); CO2 29.8 mmol/L (21.0-32.0); CREATININE 0.92 mg/dL (0.55-1.02); Calcium 9.6 mg/dL (8.5-10.1); Chloride 96 mmol/L (98-107); Glucose 110 mg/dL (70-100); Magnesium 2.4 mg/dL (1.8-2.4); Sodium 133 mmol/L (136-145)
[2019-03-16 08:06] LABS: Absolute Lymphocyte Count 1.34 k/cumm (1.2-3.4); Absolute Monocyte Count 4.01 k/cumm (0.11-0.7)
[2019-03-16 08:07] LABS: Diff Comment Manual Differential; RBC Morphology Normal
[2019-03-16] MEDS: Lidocaine 5% Patch TP (08:29)
[2019-03-16] MEDS: Benzonatate 200 MG CAP PO ×3 (08:30→20:06)
[2019-03-16] MEDS: Normal Saline Flush 10 ML SYR IVP (08:30)
[2019-03-16] MEDS: CEFEPIME 2 GM in Normal Saline 100 ML IVPB (08:30)
[2019-03-16] MEDS: buPROPion-XL 150 MG TABCR PO ×2 (08:30→20:06)
[2019-03-16] MEDS: predniSONE 5 MG, predniSONE 4 MG 9 MG PO (08:31)
[2019-03-16] MEDS: Pantoprazole 40 MG TABCR PO (08:31)
[2019-03-16] MEDS: predniSONE 20 MG TAB 40 MG PO ×2 (08:31→20:05)
[2019-03-16] MEDS: guaiFENesin 600 MG TABCR PO ×2 (08:32→20:06)
[2019-03-16] MEDS: Senna TAB 1 TAB PO ×2 (08:32→20:05)
[2019-03-16] MEDS: Ascorbic Acid 500 MG TAB PO (08:32)
[2019-03-16] MEDS: Venlafaxine 150 MG CAPCR PO (08:32)
[2019-03-16] MEDS: Calcium 600mg/Vit D 200U TAB 2 TAB PO (08:32)
[2019-03-16] MEDS: Docusate Sodium 100 MG CAP PO ×2 (08:33→20:05)
[2019-03-16] MEDS: Acetaminophen 325 MG TAB PO ×2 (08:33→22:09)
[2019-03-16] MEDS: Ferrous Gluconate 324 MG TAB PO ×2 (08:33→20:05)
[2019-03-16] MEDS: Gabapentin 600 MG TAB PO ×3 (08:33→20:05)
[2019-03-16] MEDS: Bisacodyl 10 MG SUPP PR (09:35)
--- NOTE | 2019-03-16 11:19 | CMPROGNOTE_ITS ---
Care Management Progress Note S/O: Tata continues to be closely monitored and her ABX were discontinued today. Per MD, she may be ready for discharge as soon as tomorrow. CM continues to follow. A: 63 y.o. female admitted for pneumonia and COPD remains on Acute level of care today. P: Tata will be discharged back to the [facility] when medically cleared. She will follow up with her PCP and discharge plan of care. She will resume case management services through the [facility]. Transportation will be arranged through [facility].
[2019-03-16] MEDS: Normal Saline 1,000 ML 100 ML IV ×2 (13:54→23:44)
--- NOTE | 2019-03-16 16:23 | W.PM.PROGNOT ---
Date of Service Date of service: 03/16/19 Time of Service: 16:24 Assessment and Plan Assessment and plan (1) Pneumonia: Status: Acute Assessment and plan: Clinical diagnosis of pneumonia, with initial and repeat CXR both negative for infiltrate or other acute pathology. Overall appears improved. ?Received combination of cefepime and azithromycin, and completed a 7 day course. ?Blood cultures without growth, and sputum is showing growth of Rothia Mucilaginosa, noted to be normal jeff per [facility]. -Sputum also showing rare growth of fungus. Despite immunosuppression, there is no evidence of fungal infection by imaging - potentially colonization. ?Continue treatment of concurrent COPD exacerbation. Appears to be improving. Qualifiers: Pneumonia type: due to unspecified organism Laterality: right Lung location: lower lobe of lung Qualified Code(s): J18.1 - Lobar pneumonia, unspecified organism (2) COPD (chronic obstructive pulmonary disease): Status: Chronic Assessment and plan: Improved subjectively. ?Continue prednisone. ?Received antibiotics as above. ?Continue home inhaler therapy, with Xopenex as needed. ?Plan on a slow steroid taper down to baseline home steroid dose. Qualifiers: COPD type: COPD with acute lower respiratory infection Qualified Code(s): J44.0 - Chronic obstructive pulmonary disease with (acute) lower respiratory infection (3) Rheumatoid arthritis: Status: Chronic Assessment and plan: Continue and plan on return to home steroid dosing. Patient apparently alternates between 8 and 9 mg daily. Continue physical therapy as consulted. Qualifiers: Rheumatoid arthritis location: multiple sites Rheumatoid factor presence: unspecified presence Qualified Code(s): M06.9 - Rheumatoid arthritis, unspecified (4) Chronic pain syndrome: Status: Chronic Assessment and plan: Chronic pain syndrome in setting of RA. Continue home regimen of long-acting morphine at bedtime, short acting oxycodone on as-needed basis, and home dose of meloxicam. Toradol discontinued. -Headache and neck pain improved on trial of muscle relaxants and topical Lidoderm and monitor. (5) DVT prophylaxis: Status: Acute Assessment and plan: SC heparin. Continue daily PPI therapy as well. (6) Advance directive on file: Status: Acute Assessment and plan: DNR/DNI. Subjective Subjective Interval history since last seen: 63-year-old woman with a prior history of RA on daily steroids, admitted from [facility] Emergency Department with a diagnosis of likely pulmonary infection with concurrent COPD exacerbation. Mrs. Delatorre has a past Medical History significant for RA previously managed with DMARD and immunosuppressive therapy, currently on steroids alone, prior tobacco use as well as COPD by imaging, GERD, and anxiety. She is a resident at the [facility], which is a level 3 facility. The patient presented to the ED with complaints of cough with change in sputum, ongoing for approximately one week. Labwork was remarkable for leukocytosis that appears chronic in nature, essentially normal CMP, and normal lactate. Urinalysis was also checked and negative for infection. Although her CXR was initially interpreted by virtual radiology as mild basilar opacities consistent with atelectasis vs. infiltrates, the official interpretation was of no acute abnormalities. She was referred for admission for further evaluation and treatment. Following admission Mrs. Rojo has been maintained on broad-spectrum antibiotic therapy, steroids, and nebs with subsequent improvement in her respiratory symptoms. Her WBC continues to increase on steroid therapy, but she continues to appear improved clinically and remains afebrile. She also reports vast improvement in her respiratory status. Repeat Xray 4 days after admission remained negative for infection. This morning she reports continued improvement in her neck pain with resolution of her headache. No overnight events were reported. She remains afebrile. Exam Narrative Exam Narrative: General: Patient appears comfortable, AAOX3, NAD Neck: Supple CV: Regular, nontachycardic, S1S2, No rubs, murmurs, or gallops. Pulmonary: No longer rhonchorous, and no further wheezing. Good air entry noted. Abdomen: + Bowel Sounds, soft, nontender, nondistended Vascular: No lower extremity edema Psych: Normal mood and affect. Objective Objective Clinical Data: Abnormal lab results 03/16/19 03/16/19 Range/Units 07:25 07:25 WBC 44.51 H* (4.4-10.8) k/cumm Plt Count 583 H (130-400) x1000/uL Absolute Neutrophils 31.60 H (1.2-6.7) k/cumm Absolute Monocytes 4.01 H (0.11-0.7) k/cumm Sodium 133 L (136-145) mmol/L Chloride 96 L (98-107) mmol/L BUN 20 H (7-18) mg/dL Glucose 110 H (70-100) mg/dL Vital Signs Temperature 37 C 03/16/19 16:16 Temperature Source Temporal Artery Scan 03/16/19 16:16 Pulse 113 H 03/16/19 16:16 Pulse Rhythm Regular 03/16/19 15:40 Pulse 101 H 03/09/19 19:10 Respiratory Rate 18 03/16/19 16:16 Respiratory Effort 03/16/19 15:40 Respiratory Depth Normal 03/16/19 15:40 Respiratory Pattern Normal 03/16/19 15:40 Blood Pressure 121/89 03/16/19 16:16 Blood Pressure Mean 81 03/09/19 19:00 Pulse Oximetry 94 L 03/16/19 16:16 Oxygen Delivery Method Room Air 03/16/19 16:16 Oxygen Flow Rate 0 03/16/19 16:16 Pain Level 6 03/16/19 16:16 Comment 03/13/19 04:00 Intake & Output 03/15/19 03/16/19 03/16/19 23:59 11:59 23:59 Intake Total 960 / 1310 200 / 680 480 / 680 Balance 960 / 1310 200 / 680 480 / 680 Weight 50.4 kg Intake: IV 200 / 200 Oral 960 / 960 480 / 480 Other: Urine Color Yellow Urine Appearance Clear Stool Size Small Small Stool Characteristics Formed Formed Voiding Methods Toilet Laboratory Results WBC 44.51 k/cumm (4.4-10.8) H* 03/16/19 07:25 RBC 5.04 m/cumm (4.00-5.20) 03/16/19 07:25 Hgb 14.5 g/dL (12.0-15.5) 03/16/19 07:25 Hct 42.2 % (36.0-46.0) 03/16/19 07:25 MCV 83.7 fL (80-95) 03/16/19 07:25 MCH 28.8 pg (27.0-33.0) 03/16/19 07:25 MCHC 34.4 g/dL (32.0-36.0) 03/16/19 07:25 RDW 13.5 % (11.7-14.6) 03/16/19 07:25 Plt Count 583 x1000/uL (130-400) H 03/16/19 07:25 MPV 8.3 fL (8.0-11.0) 03/16/19 07:25 Immature Gran % See Differential 03/16/19 07:25 Neutrophils % 70.0 03/16/19 07:25 Band Neutrophils % 1.0 % 03/16/19 07:25 Lymphocytes % 3.0 03/16/19 07:25 Monocytes % 9.0 03/16/19 07:25 Eosinophils % 0.0 03/16/19 07:25 Basophils % 0.0 03/16/19 07:25 Metamyelocytes % 6.0 % 03/16/19 07:25 Myelocytes % 11.0 % 03/16/19 07:25 Absolute Neutrophils 31.60 k/cumm (1.2-6.7) H 03/16/19 07:25 Absolute Lymphocytes 1.34 k/cumm (1.2-3.4) 03/16/19 07:25 Absolute Monocytes 4.01 k/cumm (0.11-0.7) H 03/16/19 07:25 Absolute Eosinophils 0.00 k/cumm (0.0-0.7) 03/16/19 07:25 Absolute Basophils 0.00 k/cumm (0.0-0.2) 03/16/19 07:25 Differential Comment Manual differential 03/16/19 07:25 RBC Morphology Normal 03/16/19 07:25 Angella Cells 2+ 03/13/19 06:44 Sodium 133 mmol/L (136-145) L 03/16/19 07:25 Potassium 5.0 mmol/L (3.5-5.1) 03/16/19 07:25 Chloride 96 mmol/L (98-107) L 03/16/19 07:25 Carbon Dioxide 29.8 mmol/L (21.0-32.0) 03/16/19 07:25 Anion Gap 7.2 mmol/L (3-11) 03/16/19 07:25 BUN 20 mg/dL (7-18) H 03/16/19 07:25 Creatinine 0.92 mg/dL (0.55-1.02) 03/16/19 07:25 Estimated GFR/1.73 m2 >= 60.00 (mL/min/1.73m2) 03/16/19 07:25 Glucose 110 mg/dL (70-100) H 03/16/19 07:25 Lactate 1.4 mmol/L (0.6-1.4) 03/09/19 17:18 Calcium 9.6 mg/dL (8.5-10.1) 03/16/19 07:25 Magnesium 2.4 mg/dL (1.8-2.4) 03/16/19 07:25 Total Bilirubin 0.4 mg/dL (0.2-1.0) 03/10/19 07:04 AST 18 U/L (15-37) 03/10/19 07:04 ALT 26 U/L (14-59) 03/10/19 07:04 Alkaline Phosphatase 45 U/L (46-116) L 03/10/19 07:04 Total Protein 7.3 g/dL (6.4-8.2) 03/10/19 07:04 Albumin 3.3 g/dL (3.4-5.0) L 03/10/19 07:04 Urine Color Stacey (Yellow) 03/10/19 03:50 Urine Clarity Clear (Clear) 03/10/19 03:50 Urine pH 7.0 (5-8) 03/10/19 03:50 Ur Specific [place] 1.015 (1.005-1.025) 03/10/19 03:50 Urine Protein Negative mg/dL (Negative) 03/10/19 03:50 Urine Ketones Trace mg/dL (Negative) H 03/10/19 03:50 Urine Blood Negative (Negative) 03/10/19 03:50 Urine Nitrite Negative (Negative) 03/10/19 03:50 Urine Bilirubin Negative (Negative) 03/10/19 03:50 Urine Urobilinogen 0.2 EU/dL (Up TO 0.2) 03/10/19 03:50 Ur Leukocyte Esterase Negative (Negative) 03/10/19 03:50 Urine Glucose Negative mg/dL (Negative) 03/10/19 03:50
[2019-03-16] MEDS: LIDOCAINE Patch Removal TP (20:18)
[2019-03-16] MEDS: LORazepam 0.5 MG TAB PO (22:09)
[2019-03-17 01:00] VITALS: BP 153/93; PULSE 98; RESP 19; TEMP 35.9; O2SAT 95
[2019-03-17 03:25] VITALS: BP 122/80; PULSE 92; RESP 20; TEMP 35.9; O2SAT 95
[2019-03-17] MEDS: Heparin 5,000 UNITS/ML VIAL 5000 UNITS SC (05:53)
[2019-03-17] MEDS: oxyCODONE 10 MG TAB PO ×2 (05:56→12:46)
[2019-03-17 07:18] LABS: Abs Immature Grans 6.75 k/cumm (0.0-0.09); HCT 40.9 % (36.0-46.0); HGB 13.9 g/dL (12.0-15.5); Mean Corpuscular Hemoglobin 28.9 pg (27.0-33.0); Mean Platelet Volume 8.6 fL (8.0-11.0); Platelet Count 565 x1000/uL (130-400); RBC 4.81 m/cumm (4.00-5.20); RBC Distribution Width 13.7 % (11.7-14.6)
[2019-03-17 07:30] LABS: BUN 17 mg/dL (7-18); CREATININE 0.74 mg/dL (0.55-1.02); Calcium 8.9 mg/dL (8.5-10.1); Chloride 101 mmol/L (98-107); Glucose 164 mg/dL (70-100); Potassium 4.2 mmol/L (3.5-5.1); Sodium 135 mmol/L (136-145)
[2019-03-17 07:51] LABS: Absolute Lymphocyte Count 0.93 k/cumm (1.2-3.4); Atypical Lymphocytes % 1; White Blood Cell Count 46.26 k/cumm (4.4-10.8)
[2019-03-17 07:52] LABS: Absolute Neutrophil Count 35.62 k/cumm (1.2-6.7)
[2019-03-17 07:53] LABS: Diff Comment Manual Differential; RBC Morphology Normal
--- NOTE | 2019-03-17 08:37 | INDS_ITS ---
Date of service: 03/17/19 Time of Service: 08:37 PT Notes Inpatient Physical Therapy Discharge Summary Dates: 03/17/2019 Dates of Service: 03/11/2019 through 03/14/2019 This is a clinical summary of care provided on the duration of dates listed above. No charge was made in the completion of this documentation. Referring Doctor: Princess Goemz MD PT Orders: PT CONSULT: Eval/treat for limited ability Precautions: Fall. Standard. Activity as tolerated. Patient Profile/Admitting Diagnosis: Patient is a 63-year-old female with past medical history significant for COPD and rheumatoid arthritis who presented to the ED on 03/09/2019 with a week long report of productive cough, shortness of breath, and generally feeling not well. Patient is diagnosed with pneumonia. PMHX: Medical History Anemia (Chronic) Anxiety (Chronic) Compression fracture of body of thoracic vertebra (Acute) Depression (Chronic) Diabetes mellitus (Chronic) due to previous high steroids. Not on any diabetes meds GERD (gastroesophageal reflux disease) (Chronic) Hx of cardiomyopathy (Acute) Insomnia (Acute) Leukocytosis (Acute) Muscle weakness (Acute) Osteoporosis (Chronic) Restless leg (Acute) Rheumatoid arthritis (Chronic) Tobacco abuse (Acute) Surgical History H/O spinal fusion (Acute) cervical and thoracic Social History/Home Situation: Patient is a long-term resident of a level III facility at the [facility] in [place], [place]. She is independent with facility ambulation using a single-point cane. Equipment Owned/DME: [facility] Subjective: NT Objective: General Observation: NT Mental Status:NT Pain:NT ROM: Grossly 25%-50% available range of motion on B shoulders, hips, and knees, WFL for B elbows Strength: Right Upper Extremity: Shoulder flexors 3-/5. Shoulder abductors 3-/5. Elbow flexors 3/5. Elbow extensors 3/5. Infrastructure Director weak but able to grasp handle of walker. Left Upper Extremity: Shoulder flexors 3-/5. Shoulder abductors 3-/5. Elbow flexors 3/5. Elbow extensors 3/5. Infrastructure Director weak but able to grasp handle of walker. Right Lower Extremity: Hip flexors 3-/5. Hip abductors 3-/5. Knee flexors 3-/5. Knee extensors 3-/5. Ankle dorsiflexors 3-/5. Ankle plantarflexors 3-/5. Left Lower Extremity: Hip flexors 3-/5. Hip abductors 3-/5. Knee flexors 3-/5. Knee extensors 3-/5. Ankle dorsiflexors 3-/5. Ankle plantarflexors 3-/5. Sensation: Intact as to pain and pressure on bilateral lower extremities. Bed Mobility/Transfers: Rolling independent Supine to sit independent Sit to supine independent Sit to stand independent Stand to sit independent Bed to chair independent Chair to bed independent Gait: Patient was able to tolerate level surface ambulation of 300 feet using front wheeled walker with full weight bearing requiring only supervision. Balance: Static Sitting: Normal Dynamic Sitting: Normal Static Standing: Good Dynamic Standing: Fair Special Tests: Mobility Limitations Standardized Measure [facility] AM-PAC 6 clicks Basic Mobility Inpatient Short Form: Raw Score: 23 CMS Score: 11% deficit Informed Consent/Education: Patient instructed in purpose of PT consult and plan of care. Assessment: Patient is a 63-year-old female with past medical history significant for COPD and rheumatoid arthritis who presented to the ED on 03/09/2019 with a week long report of productive cough, shortness of breath, and generally feeling not well. Patient is diagnosed with pneumonia. Patient did not require extensive assistance with mobility task performance using a front- wheeled walker. She was pleasant and cooperative. She hopes to ultimately be able to move out of the [facility] and find her own home eventually. Considering her co-morbidities however, she may not be successful to be living alone. A level III facility will be the most appropriate and safest discharge destination for her at this time. Her prognosis for achieving independence at home is good. Patient continues to present with clinical signs and symptoms consistent with current/admitting diagnoses that have resulted to mobility limitations, gait instability, generalized weakness, and impairment of motor control as demonstrated by the following impairment level findings: 1. Impaired activity tolerance 2. Limitation of joint range of motion in B UE/LE due to late stage rheumatoid arthritis Impairments are contributing to the following functional limitations: 1. Inability to safely ambulate without assistive device and physical assistance 2. Increase completion time for mobility ADL performance 3. Increased fall risk Goals: Goals X1 week 1. Supine-Sit independent MET 2. Sit-Supine independent MET 3. Sit-Stand independent MET 4. Stand-Sit independent MET 5. Bed-Chair independent MET 6. Chair-Bed independent MET 7. Independent gait on level surface with use of single-point cane for at least 300 feet without report of pain nor dyspnea PARTIALLY MET. Patient now at baseline. 8. Independent stair negotiation while holding onto bilateral rails for at least 10 steps without report of pain nor dyspnea PARTIALLY MET. Patient now at baseline. 9. Independent with home exercise program MET 10. Good static and dynamic standing balance/tolerance NOT MET. Patient now at baseline DISCHARGE RECOMMENDATIONS: Patient will benefit from home health PT services at [facility] in order to progress mobility level using a single-point cane, identify additional equipment needs, and establish a functional maintenance program that will increase ability of patient to remain in a level 3 facility. TREATMENT CODE/TIME: NC. Thank you very much for this referral. Jacqueline Gtz PT, DPT, CLT [facility]
[2019-03-17 09:14] VITALS: BP 111/77; PULSE 112; RESP 20; TEMP 36.7; O2SAT 94
[2019-03-17] MEDS: Senna TAB 1 TAB PO (09:19)
[2019-03-17] MEDS: predniSONE 5 MG, predniSONE 4 MG 9 MG PO (09:19)
[2019-03-17] MEDS: guaiFENesin 600 MG TABCR PO (09:19)
[2019-03-17] MEDS: Benzonatate 200 MG CAP PO (09:20)
[2019-03-17] MEDS: Calcium 600mg/Vit D 200U TAB 2 TAB PO (09:20)
[2019-03-17] MEDS: Ascorbic Acid 500 MG TAB PO (09:21)
[2019-03-17] MEDS: Gabapentin 600 MG TAB PO (09:21)
[2019-03-17] MEDS: Bisacodyl 5 MG TABEC 10 MG PO (09:21)
[2019-03-17] MEDS: Ferrous Gluconate 324 MG TAB PO (09:22)
[2019-03-17] MEDS: predniSONE 20 MG TAB 40 MG PO (09:22)
[2019-03-17] MEDS: Pantoprazole 40 MG TABCR PO (09:22)
[2019-03-17] MEDS: Venlafaxine 150 MG CAPCR PO (09:22)
[2019-03-17] MEDS: Docusate Sodium 100 MG CAP PO (09:22)
[2019-03-17] MEDS: buPROPion-XL 150 MG TABCR PO (09:23)
[2019-03-17] MEDS: Normal Saline 1,000 ML 100 ML IV (09:23)
[2019-03-17] MEDS: Lidocaine 5% Patch TP (09:23)
[2019-03-17] MEDS: Magnesium Citrate 300 ML BTL PO ×2 (11:06→11:52)
--- NOTE | 2019-03-17 11:22 | W.PM.DS.N ---
Date of service: 03/17/19 Time of Service: 11:24 DS: Diagnosis Discharge Diagnosis (1) Pneumonia: Status: Acute (2) COPD (chronic obstructive pulmonary disease): Status: Chronic (3) Rheumatoid arthritis: Status: Chronic (4) Chronic pain syndrome: Status: Chronic (5) Leukocytosis: Status: Acute Discharge Plan Disposition Patient Disposition: [facility] Condition: Stable Discharge Details Chief Complaint: SOB Clinical Impression: COPD (chronic obstructive pulmonary disease), Pneumonia Reason For Visit: RIGHT LOWER LOBE PNUEMONIA, COPD Admit Date/Time: 03/09/19 18:30 Admit Provider: Jamari Lunsford Attending Provider: Jamari Lunsford Primary Care Provider: Gio Munoz ED Provider: Domenic Godfrey Hospital Course Hospital Course: Chief Complaint: Dyspnea, Cough HPI: 63-year-old woman with a prior history of RA on daily steroids, admitted from [facility] Emergency Department with a diagnosis of likely pulmonary infection with concurrent COPD exacerbation. Mrs. Delatorre has a past Medical History significant for RA previously managed with DMARD and immunosuppressive therapy per verbal report, currently on steroids alone. She also has a prior tobacco use history, as well as COPD by imaging, GERD, and anxiety. She is a resident at the [facility], which is a level 3 facility. The patient presented to the ED with complaints of cough with change in sputum, ongoing for approximately one week. Labwork was remarkable for leukocytosis that appears chronic in nature, essentially normal CMP, and normal lactate. Urinalysis was also checked and negative for infection. Although her CXR was initially interpreted by virtual radiology as mild basilar opacities consistent with atelectasis vs. infiltrates, the official interpretation was of no acute abnormalities. She was referred for admission for further evaluation and treatment. Following admission Mrs. Rojo has been maintained was broad-spectrum antibiotic therapy, steroids, and nebs with subsequent improvement in her respiratory symptoms. Her WBC continues to increase on steroid therapy, but she continues to appear improved clinically and remains afebrile. She also reports vast improvement in her respiratory status subjectively. Repeat Xray 4 days after admission remained negative for infection. This morning she reports continued improvement in her neck pain with resolution of her headache. No overnight events were reported. She remains afebrile. Hospital Course: (1) Pneumonia: Clinical diagnosis of pneumonia by admitting attending, with initial and repeat CXR both negative for infiltrate or other acute pathology. Has remained afebrile, and was never hypoxic. Suspect potential bacterial Tracheobronchitis. Overall appears improved. ?Received combination of cefepime and azithromycin, and completed a 7 day course. ?Blood cultures without growth, and sputum showed growth of Rothia Mucilaginosa, noted to be normal jeff per [facility]. -Sputum also showing rare growth of fungus. Despite immunosuppression (daily steroids), there is no evidence of fungal infection by imaging - potential colonization. ?Continue treatment of concurrent COPD exacerbation. Will plan for steroid taper back to baseline, and provision of rescue inhaler at time of discharge. Appears to be improving. (2) COPD (chronic obstructive pulmonary disease): Improved subjectively. ?Continue prednisone and taper.. ?Received antibiotics as above. ?Plan on discharge with rescue inhaler. ?Will ensure a slow steroid taper down to baseline home steroid dose. (3) Rheumatoid arthritis: Continue and plan on return to home steroid dosing. Patient apparently alternates between 8 and 9 mg daily. Will Continue physical therapy as outpatient. (4) Chronic pain syndrome: Chronic pain syndrome in setting of RA. Continue home regimen of long-acting morphine at bedtime, short acting oxycodone on as-needed basis, and home dose of meloxicam. -Headache and neck pain improved on trial of muscle relaxants and topical Lidoderm as inpatient. Will hold off on these medication at time of discharge. -Of note, patient is also on Duloxetine chronically, potentially for pain, but also taking Venlafaxine for anxiety and depression. Consider change to one SNRI with titration if deemed appropriate. Will defer to outpatient. (5) Leukocytosis: Appearance of chronic leukocytosis that progressively worsened during this hospitalization while patient has been receiving steroids. WBC has elevated to 46.2 today, and steadily risen despite downtitration of steroid therapy. Also with concurrent mild thrombocytosis that appears stable (565) and normal Hgb - Differential with 76% Neutrophils, 1% Bands, 1% Lymphocytes, 8% Monocytes, and no eosinophils. No mention of blast forms. Mrs. Delatorre reports a lengthy history of leukocytosis. - Discussed case with [facility] Hematology prior to discharge. Patient has received a 7 day course of broad-spectrum antibiotic therapy, remains afebrile, has improved clinically, and has no signs of infection and no evidence of diarrhea or abdominal discomfort. Leukocytosis was deemed likely due to an exaggerated response to infection/inflammation with concurrent steroid use, especially with concurrent mild elevation in platelet count, with low suspicion for acute leukemia. Recommendations for checking a high flow cytometry to rule out a monoclonal process, with repeat blood work in one week to ensure improvement. If needed, patient can follow-up with Hematology in the near future pending results of the above. (6)DVT prophylaxis: Was maintained on SC heparin. Continue daily PPI therapy as well. (7) Advance directive on file: DNR/DNI. (8) Disposition: Back to [facility] residence today, with follow-up with PCP within 1-2 weeks. Will also benefit from PT at the assisted care facility upon discharge. Home Meds and New Rx's Prescriptions: New prednisone 20 mg tablet 20 mg PO DAILY Qty: 15 RF: 0 levalbuterol tartrate [Xopenex HFA] 45 mcg/actuation HFA aerosol inhaler 2 inh IH Q4H PRN (Reason: shortness of breath or wheezing) Qty: 15 RF: 1 Continued acetaminophen 325 mg tablet 650 mg PO Q4H PRNRF: 0 Narcan 4 mg/actuation spray,non-aerosol 1 spray JUN ONCE PRNRF: 0 bupropion HCl 150 MG tablet extended release 24 hr 150 mg PO BID RF: 0 duloxetine 30 MG capsule,delayed release(DR/EC) 30 mg PO BID RF: 0 oxycodone 10 MG tablet 10 mg PO QID MDD 6 PRNRF: 0 lorazepam [Ativan] 0.5 MG tablet 0.5 mg PO HS RF: 0 ferrous gluconate 325 MG tablet 324 mg PO BID RF: 0 gabapentin 800 MG tablet 600 mg PO TID RF: 0 meloxicam 7.5 MG tablet 1 tab PO BID RF: 0 morphine 30 MG capsule,extend.release pellets 15 mg PO HS RF: 0 venlafaxine 150 mg Capsule,Extended Release 24hr 150 mg PO DAILY RF: 0 sennosides [senna] 8.6 mg Tablet 8.6 mg PO BID RF: 0 lidocaine 5 % Ointment 1 applic topical BID RF: 0 calcium carbonate [Oysco-500] 500 mg calcium (1,250 mg) Tablet 500 mg PO DAILY RF: 0 guaifenesin 600 mg Tablet Extended Release 12hr 600 mg PO BID PRNRF: 0 pantoprazole 20 mg Tablet,Delayed Release (Dr/Ec) 20 mg PO DAILY RF: 0 Calcium Creamies 600 mg PO DIRECTED RF: 0 ascorbic acid (vitamin C) [Vitamin C] 500 mg Tablet 500 mg PO DAILY RF: 0 lorazepam 0.5 mg Tablet 0.5 mg PO HS RF: 0 prednisone 2 mg Tablet,Delayed Release (Dr/Ec) See Rx Instructions .ROUTE .COMPLEX RF: 0 alendronate 70 MG tablet 70 mg PO .WEEKLY RF: 0 lidocaine [Lidoderm] 1 PATCH adhesive patch,medicated 1 patch DAILY RF: 0 omeprazole 20 MG capsule,delayed release(DR/EC) 20 mg PO DAILY RF: 0 polyethylene glycol 3350 [GlycoLax] 527 GM powder 1 applic PO BID RF: 0 Calcium 600 with Vitamin D3 1 EACH tablet,chewable 2 tab PO DAILY RF: 0 Discharge Instructions Additional Instructions: - Please finish your steroid taper back down to your regular home dosing of prednisone, and continue that as before. - Use your new inhaler liberally until your breathing is back to your baseline. - See your primary care provider within 1 week. Stand Alone Forms: Nursing Discharge Form Referrals: Gio Munoz MD [Primary Care Provider] - Activity:: No strenuous activity Equipment/Supplies:: No Equipment Needed Diet:: As Tolerated Discharge Orders Discharge Orders: Discharge Order (Routine); Ordered 03/17/19 Ordered By: Jose López Other Ambulatory Orders: Complete Blood Count w/Diff (Routine) Timeframe: 7 Days Location: None Selected Ordered By: Jose López DS: Summary Status at Discharge Functional status at discharge: independent ambulation Overall status at discharge: patient is back to baseline Mental Status: mental status grossly normal Speech and Movement: speech and movement normal Mood: congruent mood Affect: normal affect Exam Narrative Exam Narrative: General: Patient appears comfortable, AAOX3, NAD Neck: Supple CV: Regular, nontachycardic, S1S2, No rubs, murmurs, or gallops. Pulmonary: No longer rhonchorous, and no further wheezing. Good air entry noted. Abdomen: + Bowel Sounds, soft, nontender, nondistended Vascular: No lower extremity edema Psych: Normal mood and affect. Psych Mental Status: mental status grossly normal Speech and Movement: speech and movement normal Mood: congruent mood Affect: normal affect DS: Data Vitals/I&O Vitals and I&O: Vital Signs Temperature 36.7 C 03/17/19 09:14 Temperature Source Skin 03/17/19 09:14 Pulse 112 H 03/17/19 09:14 Pulse Rhythm Regular 03/17/19 09:29 Pulse 101 H 03/09/19 19:10 Respiratory Rate 20 03/17/19 09:14 Respiratory Effort 03/17/19 09:29 Respiratory Depth Normal 03/17/19 09:29 Respiratory Pattern Normal 03/17/19 09:29 Blood Pressure 111/77 03/17/19 09:14 Blood Pressure Mean 81 03/09/19 19:00 Pulse Oximetry 94 L 03/17/19 09:14 Oxygen Delivery Method Room Air 03/17/19 09:14 Oxygen Flow Rate 0 03/17/19 09:14 Pain Level 8 03/17/19 09:14 Comment 03/13/19 04:00 Intake & Output 03/16/19 03/16/19 03/17/19 11:59 23:59 11:59 Intake Total 200 / 3248.259 2790.333 / 8283.143 4730 / 1325 Balance 200 / 3540.575 7567.333 / 8009.431 6342 / 1325 Weight 50.4 kg 50.2 kg Intake: IV 200 / 1183.333 983.333 / 1183.333 965 / 965 Oral 480 / 480 360 / 360 Other: Urine Appearance Clear Comment Voiding independently Stool Size Small Small Stool Characteristics Formed Formed Voiding Methods Toilet Data Completed and Pending Completed studies during hospitalization [Text1]: Exam(s) 03/09/2019 a RAD:XR chest 2V PA & lateral EXAM: XR CHEST 2V PA LATERAL INDICATION: cough. COMPARISON: XR CHEST 2V PA LATERAL from 08/21/2018 TECHNIQUE: 2D digital imaging was performed. FINDINGS: The heart size is normal. Hardware is again noted in the mid thoracic spine. There is a stable lower thoracic compression fracture. Upper lumbar compression fractures are also faintly visualized. There are old bilateral rib fractures. There is no evidence of pneumothorax, infiltrate or effusion. IMPRESSION: No acute abnormality. --------- Exam(s) 03/13/2019 a RAD:XR chest 2V PA & lateral EXAM: XR CHEST 2V PA LATERAL INDICATION: follow up pneumonia. COMPARISON: XR CHEST 2V PA LATERAL from 03/09/2019 TECHNIQUE: 2D digital imaging was performed. FINDINGS: The heart size is within normal limits. Hardware is again noted in the spine. There are multiple bilateral old rib fractures as well as a lower thoracic compression fracture. No infiltrate, effusion or pulmonary edema is seen. IMPRESSION: No acute abnormality. Labs on day of discharge: Labs from last 24 hours 03/17/19 03/17/19 03/17/19 09:23 06:15 06:15 WBC 46.26 H* RBC 4.81 Hgb 13.9 Hct 40.9 MCV 85.0 MCH 28.9 MCHC 34.0 RDW 13.7 Plt Count 565 H MPV 8.6 Immature Gran % See Differential Neutrophils % 76.0 Band Neutrophils % 1.0 Lymphocytes % 1.0 Atypical Lymphs % 1 Monocytes % 8.0 Eosinophils % 0.0 Basophils % 0.0 Metamyelocytes % 7.0 Myelocytes % 6.0 Absolute Neutrophils 35.62 H Absolute Lymphocytes 0.93 L Absolute Monocytes 3.70 H Absolute Eosinophils 0.00 Absolute Basophils 0.00 Differential Comment Manual differential RBC Morphology Normal Sodium 135 L Potassium 4.2 Chloride 101 Carbon Dioxide 25.0 Anion Gap 9.0 BUN 17 Creatinine 0.74 Estimated GFR/1.73 m2 >= 60.00 Glucose 164 H Calcium 8.9 Magnesium 2.0 Lymph/Leukemia Panel Pending Path Cons Comment Pending Sputum Culture Final 03/17/19-723 Day 4 Result ISOLATES BELOW DAY 4 GROWTH SCANT GROWTH ISOLATE 1 APPEARANCE Gram Positive Jeff DAY 4 GROWTH SCANT GROWTH ISOLATE 2 APPEARANCE Normal Jeff DAY 4 GROWTH RARE GROWTH ISOLATE 3 APPEARANCE Fungus 03/14/19 GRAM POSITIVE JABARI SENT TO REFERENCE LAB FOR IDENTIFICATION PER DR BOYD: IDENTIFIED ROTHIA (STOMATOCOCCUS) MUCILAGINOSA (NORMAL JEFF). ID performed or referred by: The [address] [address] Organism 1 Rothia mucilaginosa GROWTH SCANT GROWTH Organism 2 NORMAL JEFF GROWTH SCANT GROWTH Organism 3 FUNGUS GROWTH RARE GROWTH Gram Stain Final 03/10/19-142 GRAM STAIN Many White Blood Cells Few Epithelial Cells Many Gram Positive Jabari [facility] Medical History Anemia (Chronic) Anxiety (Chronic) Compression fracture of body of thoracic vertebra (Acute) Depression (Chronic) Diabetes mellitus (Chronic) due to previous high steroids. Not on any diabetes meds GERD (gastroesophageal reflux disease) (Chronic) Hx of cardiomyopathy (Acute) Insomnia (Acute) Leukocytosis (Acute) Muscle weakness (Acute) Osteoporosis (Chronic) Restless leg (Acute) Rheumatoid arthritis (Chronic) Tobacco abuse (Acute) Surgical History H/O spinal fusion (Acute) cervical and thoracic Family History Mother Glaucoma Father , age 82 from esophageal cancer Esophageal cancer Sister , age 54 from lung cancer Lung cancer Social History Smoking/Tobacco Use Status: Current every day Tobacco Type: cigarettes Alcohol Intake: never Drug use: Current Sobriety Substance use type: does not use Caregiver/Support person: Yes Household members: family Housing: house Number of Children: 0 number of grandchildren: 0 Pets and animals: Yes What is your relationship status?: How often do you talk on the phone with friends or family?: twice per week How often do you get together with friends or relatives?: three or more times per week Panel score (0-1 are the most socially isolated patients): 1 What type of physical activity do you participate in: walking and occasional exercise Agree to transfusion: Yes Seatbelt use: always Do you feel safe at home: Yes Do you feel safe in your relationship?: Yes
--- NOTE | 2019-03-17 12:14 | PDOC.HHF2F_ITS ---
Home Health Certification Home Health Certification: 1. Encounter Date and Reason I certify that MARCELO HART was seen by Jose López on 03/17/19 and that I had a [id number] encounter with this patient that meets the physician face to face encounter requirements. 2. Clinical Findings Supporting Skilled Need and Homebound Status I certify that home health services are medically necessary, include either intermittent [place] [facility] and/or physical/speech therapy, and that this patient is homebound in that absences from the home require considerable and taxing effort and are infrequent or of short duration, or are attributable to the need to receive medical care. [X] (a) Attached documentation from encounter provides clinical findings supporting skilled need and homebound status (including what assistance patient requires to leave the home). The encounter with the patient was in whole, or in part, for the following medical condition, which is the primary reason for home health care: RIGHT LOWER LOBE PNUEMONIA, COPD Alf: Physical Therapy: Continue gait stability and strengthening following hospitalization. Speech Therapy: Homebound: 3. Certification and Authentication I certify that I composed the above information based on my clinical judgement relating to this patient's medical condition and, if applicable, clinical findings communicated to me by the NPP or inpatient physician who performed the Home Health Referral. All further orders will be obtained through Gio Munoz (Community Based Physician - PCP)
--- NOTE | 2019-03-17 14:18 | PDOC.CMDIS ---
LACE Index Scoring Tool - Questions: Length of Stay (in days): 7 - 13 Acuity (Admit via E.D.?): Yes Comorbidities: Diabetes w/o Complication E.D. Visits: 2 - Answers: Total Score: 11 Risk of Readmission: High Risk Care Management Discharge Reason for Hospitalization: Pneumonia Discharge Plan: Tata will be discharged back to the [facility] when medically cleared. She will follow up with her PCP and discharge plan of care. She will resume case management services through the [facility], and have new orders for Physical Therapy through [facility]. Transportation arranged through [facility] by this engineering writer. Patient/Family Education Needs: Review discharge instructions, discuss Ask Me Three. Services Needed at Discharge: Home Health Care Services (Physical Therapy), [facility] Facility (Level 3 at [facility])
== END 2019-03-17 12:57 | disposition designated cancer center or children's hospital (05) | DRG 190 ==
LOC: ER 18:47 → MS 19:23
PROVIDERS: Internal Medicine; Admitting Provider Family Medicine; Emergency Provider Student in an Organized Health Care Education/Training Program; PCP Internal Medicine; Visit Provider Internal Medicine
DX: J44.0 Chronic obstructive pulmonary disease with (acute) lower respiratory infection (principal); J18.1 Lobar pneumonia, unspecified organism; E87.1 Hypo-osmolality and hyponatremia; J44.1 Chronic obstructive pulmonary disease with (acute) exacerbation; J40 Bronchitis, not specified as acute or chronic; Y95 Nosocomial condition; D72.829 Elevated white blood cell count, unspecified; D47.3 Essential (hemorrhagic) thrombocythemia; M06.9 Rheumatoid arthritis, unspecified; Z79.52 Long term (current) use of systemic steroids; K21.9 Gastro-esophageal reflux disease without esophagitis; F41.9 Anxiety disorder, unspecified; G89.4 Chronic pain syndrome; Z66 Do not resuscitate; G25.81 Restless legs syndrome; F17.210 Nicotine dependence, cigarettes, uncomplicated; R51 Headache; M54.2 Cervicalgia
CPT/HCPCS: 36415; 80048; 80053; 85027; 87040; 88185; 96365; 97162; 97530; 99223; 99232; 99233; 99239; 99285; 71046; 81003; 83605; 83735; 85025; 87070; 87205; 88184; 88189; 94640; 94667; 99284; J0456; J1644; J1885; J2930; J3490; J7512; J7614; J7644

== ENCOUNTER 2019-03-24 08:02 | Outpatient (REF) | payer MEDICARE, MEDICAID, SELFPAY ==
[2019-03-24 09:14] LABS: HCT 39.9 % (36.0-46.0); HGB 13.1 g/dL (12.0-15.5); Mean Corp. HGB Concentration 32.8 g/dL (32.0-36.0); Mean Corpuscular Hemoglobin 28.8 pg (27.0-33.0); Mean Corpuscular Volume 87.7 fL (80-95); Mean Platelet Volume 8.3 fL (8.0-11.0); Platelet Count 385 x1000/uL (130-400); RBC 4.55 m/cumm (4.00-5.20); RBC Distribution Width 14.5 % (11.7-14.6); White Blood Cell Count 21.66 k/cumm (4.4-10.8)
[2019-03-24 09:37] LABS: Absolute Basophil Count 0.22 k/cumm (0.0-0.2); Absolute Monocyte Count 2.17 k/cumm (0.11-0.7); Absolute Neutrophil Count 16.03 k/cumm (1.2-6.7); Atypical Lymphocytes % 1; Diff Comment Manual Differential
[2019-03-24 09:38] LABS: RBC Morphology Normal
== END 2019-03-24 08:22 ==
LOC: LBN 08:02
PROVIDERS: PCP Internal Medicine; Visit Provider Internal Medicine
DX: D72.829 Elevated white blood cell count, unspecified (principal)
CPT/HCPCS: 85025

== ENCOUNTER 2019-04-21 02:24 | Outpatient (CLI) | payer MEDICARE, MEDICAID, SELFPAY ==
--- NOTE | 2019-04-21 11:17 | DI.RAD_ITS ---
EXAM: XR HIP PELVIS ADULT BL INDICATION: CHRONIC HIP PAIN M25.559. LUMBAR SPINE COMPLETE from 10/09/2016 TECHNIQUE: 2D digital imaging was performed. FINDINGS: There has been no significant change in the alignment of the bilateral hip prostheses. Again noted a re old bilateral pubic ramus fractures. The sacrum and iliac crests are mainly obscured by overlying bowel gas and stool. IMPRESSION: No acute abnormality.
== END 2019-04-21 02:44 ==
PROVIDERS: PCP Internal Medicine; Visit Provider Internal Medicine
DX: M25.551 Pain in right hip (principal); M25.552 Pain in left hip; Z96.643 Presence of artificial hip joint, bilateral; Z87.81 Personal history of (healed) traumatic fracture
CPT/HCPCS: 73521

== ENCOUNTER 2019-05-04 11:06 | Outpatient (CLI) | payer MEDICARE, MEDICAID, SELFPAY ==
--- NOTE | 2019-05-04 10:56 | DI.RAD_ITS ---
EXAM: XR PELVIS AP INDICATION: R hip pain. COMPARISON: XR HIP PELVIS ADULT BL from 04/21/2019 TECHNIQUE: 2D digital imaging was performed. FINDINGS: No acute fracture or dislocation is seen. The patient has bilateral total hip replacements which conchita ears stable. Dystrophic calcifications are seen around the hips bilaterally. The soft tissues are o therwise unremarkable.
== END 2019-05-04 11:26 ==
PROVIDERS: PCP Internal Medicine; Referring Provider Internal Medicine; Visit Provider Student in an Organized Health Care Education/Training Program
DX: M25.551 Pain in right hip (principal); Z96.643 Presence of artificial hip joint, bilateral; M06.9 Rheumatoid arthritis, unspecified; M21.40 Flat foot [pes planus] (acquired), unspecified foot; E11.9 Type 2 diabetes mellitus without complications
CPT/HCPCS: 99204; 99215; 72170

== ENCOUNTER → 2019-11-09 09:57 | Outpatient (BNVA) | payer MEDICARE, MEDICAID, SELFPAY | PROVIDERS: PCP Internal Medicine; Referring Provider Internal Medicine; Visit Provider Student in an Organized Health Care Education/Training Program | DX: Z47.1 Aftercare following joint replacement surgery; Z96.641 Presence of right artificial hip joint; M25.551 Pain in right hip; M21.41 Flat foot [pes planus] (acquired), right foot; M21.42 Flat foot [pes planus] (acquired), left foot; E11.9 Type 2 diabetes mellitus without complications ==

== ENCOUNTER 2020-05-11 17:52 | Outpatient (REF) | payer MEDICARE, MEDICAID, SELFPAY ==
[2020-05-11 12:05] LABS: HCT 40.4 % (36.0-46.0); MCH 27.9 pg (27.0-33.0); MCHC 32.2 % (32.0-36.0); MCV 86.7 fL (80-95); MPV 8.7 fL (8.0-11.0); Platelet Count 366 10^3/uL (130-400); RBC 4.66 10^6/uL (3.93-5.22); RDW 12.5 % (11.7-14.6); RDW-SD 39.8 fL; WBC 14.23 10^3/uL (4.4-10.8)
[2020-05-11 12:22] LABS: Anion Gap 7.6 mmol/L (3-11); BUN 12 mg/dL (7-18); CO2 29.4 mmol/L (21.0-32.0); CREATININE 0.92 mg/dL (0.55-1.02); Calcium 9.3 mg/dL (8.5-10.1); Chloride 100 mmol/L (98-107); FREE T4 0.97 ng/dL (0.76-1.46); Glucose 83 mg/dL (74-106); Potassium 4.7 mmol/L (3.5-5.1); Sodium 137 mmol/L (136-145); TSH 3.56 uIU/mL (0.36-3.74)
== END 2020-05-11 18:12 ==
LOC: NCHCN 17:52
PROVIDERS: PCP Internal Medicine; Visit Provider Internal Medicine
DX: M06.9 Rheumatoid arthritis, unspecified (principal); M81.0 Age-related osteoporosis without current pathological fracture; I10 Essential (primary) hypertension; E11.9 Type 2 diabetes mellitus without complications
CPT/HCPCS: 80048; 85027; 84439; 84443

== ENCOUNTER 2020-08-22 14:55 | Outpatient (CLI) | payer MEDICARE, MEDICAID, SELFPAY ==
--- NOTE | 2020-08-22 14:00 | DI.RAD_ITS ---
EXAM: XR FOOT RT COMPLETE CLINICAL HISTORY: pain. TECHNIQUE: 2D digital imaging was performed. COMPARISON: No exams were available for comparison FINDINGS: There is diffuse osteopenia. There is advanced pes planus. There is prosthesis at the metatarsophal angeal joint of the great toe. There is lateral subluxation at this level. There is a healed fractu re at the midshaft of the 3rd metatarsal. There are fusions jennifer evident at the level of the inte rphalangeal joints of the 2nd and 3rd toes and there is dislocation of the metatarsophalangeal joint of the 4th toe and dislocation at the interphalangeal joint of the 5th toe. There is no obvious acut e fracture. Large inferior calcaneal spur is noted. Also a osteophytic come on the posterior superi or aspect of the calcaneus. Advanced degenerative changes are noted in talonavicular joint as well as at the calcaneocuboid joint . Milder degenerative changes at the articulations between the metatarsal bases and cuneiform-cuboid . IMPRESSION: Multilevel findings as described above. Complete pes planus. Previous surgeries of the great toe and 2nd and 3rd toe as described above and healed fracture at the midshaft of 3rd metatarsal Other findings as above. DATA REPOSITORY: RADIATION DOSE DELIVERED:
== END 2020-08-22 14:56 | disposition home or self-care (01) ==
LOC: DIORS 14:56
PROVIDERS: PCP Internal Medicine; Referring Provider Nurse Practitioner Family; Visit Provider Student in an Organized Health Care Education/Training Program
DX: M21.41 Flat foot [pes planus] (acquired), right foot (principal); M06.09 Rheumatoid arthritis without rheumatoid factor, multiple sites; M79.671 Pain in right foot; M85.88 Other specified disorders of bone density and structure, other site; M77.31 Calcaneal spur, right foot
CPT/HCPCS: 99213; 73630

== ENCOUNTER 2020-08-25 02:29 | Outpatient (CLI) | payer MEDICARE, MEDICAID, SELFPAY ==
--- NOTE | 2020-08-25 | DI.US_ITS ---
EXAM: US ABDOMEN CLINICAL HISTORY: ABD BLOATING,R14.0 TECHNIQUE: Ultrasound of complete upper abdomen performed using standard protocol. COMPARISON: No exams were available for comparison FINDINGS: There is no ascites evident. LIVER: There are no hepatic lesions evident nor obvious dilatation of intrahepatic ducts. GALLBLADDER/BILIARY: Appears to contain septate but there are no visible gallstones. No gallbladder wall edema nor pericholecystic fluid. The common hepatic duct isnot dilated, measuring 4mm at the level of shawn hepatis. PANCREAS: There is no evidence of pancreatic mass nor dilatation of the pancreatic duct. SPLEEN: The spleen is not enlarged and there are no intrasplenic lesions evident. KIDNEYS:There is a small 2 millimeter echogenic focus in the mid aspect of the right kidney. This ma y represent a tiny nonobstructive calculus. No other focal renal findings evident. No hydronephrosi s. ABDOMINAL AORTA: There is no evidence of abdominal aortic aneurysm. IVC: Normal diameter where visualized. IMPRESSION: 1. No evidence of cholelithiasis nor dilatation of the biliary tree. 2. Possible 2 millimeter nonobstructive calculus in the right kidney. 3. There is no ascites. DATA REPOSITORY:
--- NOTE | 2020-08-25 | DI.RAD_ITS ---
EXAM: XR ABDOMEN FLAT UPRIGHT CLINICAL HISTORY: ABD BLOATING,R14.0. TECHNIQUE: 2D digital imaging was performed. COMPARISON: CR XR HIP PELVIS ADULT BL from 04/21/2019 CR XR PELVIS AP from 05/04/2019 FINDINGS: There is fusion hardware in the mid-lower thoracic spinal column. There also bilateral hip prosthese s. Dystrophic calcification adjacent to the right hip again noted. Healed bilateral pubic rami frac tures are again noted. No obvious acute pelvic fractures. The bowel gas pattern is nonspecific. Th ere is no obvious bowel obstruction. No free air. No obvious renal calculi. Phleboliths in left si de of the pelvis again noted. IMPRESSION: Hardware as above. Nonspecific bowel gas pattern. No obvious bowel obstruction. No free air. DATA REPOSITORY: RADIATION DOSE DELIVERED:
== END 2020-08-25 02:49 ==
PROVIDERS: PCP Internal Medicine; Visit Provider Nurse Practitioner Family
DX: R14.0 Abdominal distension (gaseous) (principal); N28.89 Other specified disorders of kidney and ureter; Z96.643 Presence of artificial hip joint, bilateral
CPT/HCPCS: 74019; 76700

== ENCOUNTER 2020-10-17 16:40 | Outpatient (REF) | payer MEDICARE, MEDICAID, SELFPAY ==
[2020-10-17 14:59] LABS: Abs Immature Grans 0.24 10^3/uL (0.0-0.06); Absolute Basophil Count 0.11 10^3/uL (0.0-0.2); Absolute Eosinophil Count 0.25 10^3/uL (0.0-0.7); Absolute Lymphocyte Count 1.22 10^3/uL (1.2-3.4); Absolute Monocyte Count 1.33 10^3/uL (0.1-0.8); Basophils % 0.9; Eosinophils % 2.1; HCT 39.6 % (36.0-46.0); HGB 13.1 g/dL (11.2-15.7); Lymphocytes % 10.3; MCH 28.4 pg (27.0-33.0); MCHC 33.1 % (32.0-36.0); MCV 85.7 fL (80-95); MPV 8.9 fL (8.0-11.0); Monocytes % 11.3; Neutrophils % 73.4; Nucleated RBC 0 %; Platelet Count 356 10^3/uL (130-400); RBC 4.62 10^6/uL (3.93-5.22); RDW 12.4 % (11.7-14.6); RDW-SD 38.9 fL
[2020-10-17 15:03] LABS: Absolute Neutrophil Count 8.66 10^3/uL (1.2-6.7)
[2020-10-17 15:45] LABS: Vitamin B12 582 pg/mL (193-986)
[2020-10-17 16:07] LABS: Iron 85 ug/dL (50-170); Total Iron Binding Capacity 258 ug/dL (250-450); Transferrin Sat 33 % (15-50)
== END 2020-10-17 16:41 | disposition home or self-care (01) ==
LOC: NCHCN 16:40
PROVIDERS: PCP Internal Medicine; Visit Provider Nurse Practitioner Family
DX: D64.9 Anemia, unspecified (principal); M06.9 Rheumatoid arthritis, unspecified; K21.9 Gastro-esophageal reflux disease without esophagitis; G25.81 Restless legs syndrome; G89.29 Other chronic pain; Z79.891 Long term (current) use of opiate analgesic
CPT/HCPCS: 82607; 83540; 83550; 83735; 85025

== ENCOUNTER 2020-11-16 16:51 | Outpatient (REF) | payer MEDICARE, MEDICAID, SELFPAY ==
[2020-11-16 19:44] LABS: *AMPHETAMINES SCREEN URINE Negative (Negative); *BARBITURATES SCREEN URINE Negative (Negative); *BENZODIAZEPINES SCREEN URINE Negative (Negative); Cannabinoids THC Negative (Negative); Cocaine Screen,Urine Negative (Negative); METHADONE URINE SCREEN Negative (Negative); OPIATES URINE SCREEN Positive (Negative)
[2020-11-16 19:47] LABS: Tricyclic Antidepressants Negative (Negative)
== END 2020-11-16 16:52 | disposition home or self-care (01) ==
LOC: NCHCN 16:51
PROVIDERS: PCP Internal Medicine; Visit Provider Nurse Practitioner Family
DX: Z51.81 Encounter for therapeutic drug level monitoring (principal); M54.2 Cervicalgia; G89.29 Other chronic pain; Z79.891 Long term (current) use of opiate analgesic
CPT/HCPCS: 80307

== ENCOUNTER 2021-02-07 14:58 | Outpatient (REF) | payer MEDICARE, MEDICAID, SELFPAY ==
[2021-02-07 18:55] LABS: Abs Immature Grans 0.04 10^3/uL (0.0-0.06); Absolute Basophil Count 0.08 10^3/uL (0.0-0.2); Absolute Eosinophil Count 0.43 10^3/uL (0.0-0.7); Absolute Lymphocyte Count 1.43 10^3/uL (1.2-3.4); Absolute Neutrophil Count 5.79 10^3/uL (1.2-6.7); Basophils % 0.9; Eosinophils % 4.7; HCT 36.5 % (36.0-46.0); HGB 11.6 g/dL (11.2-15.7); Immature Grans % 0.4; Lymphocytes % 15.6; MCH 27.6 pg (27.0-33.0); MCHC 31.8 % (32.0-36.0); MCV 86.7 fL (80-95); MPV 9.3 fL (8.0-11.0); Monocytes % 15.3; Neutrophils % 63.1; Nucleated RBC 0 %; Platelet Count 328 10^3/uL (130-400); RBC 4.21 10^6/uL (3.93-5.22); RDW 13.3 % (11.7-14.6); WBC 9.17 10^3/uL (4.4-10.8)
[2021-02-07 19:31] LABS: Iron 45 ug/dL (50-170); Total Iron Binding Capacity 254 ug/dL (250-450); Transferrin Sat 18 % (15-50)
== END 2021-02-07 14:59 | disposition home or self-care (01) ==
LOC: NCHCN 14:58
PROVIDERS: PCP Internal Medicine; Visit Provider Nurse Practitioner Family
DX: D64.9 Anemia, unspecified (principal); D72.829 Elevated white blood cell count, unspecified; Z79.52 Long term (current) use of systemic steroids
CPT/HCPCS: 83540; 83550; 85025

== ENCOUNTER 2021-05-12 11:40 | Outpatient (CLI) | payer MEDICARE, MEDICAID, SELFPAY ==
[2021-05-14 15:33] LABS: COVID-19 RT-PCR UVMMC Result Negative (Negative)
== END 2021-05-12 11:41 | disposition home or self-care (01) ==
PROVIDERS: PCP Nurse Practitioner Family; Visit Provider Nurse Practitioner Family
DX: Z20.822 Contact with and (suspected) exposure to COVID-19 (principal)
CPT/HCPCS: U0003

== ENCOUNTER 2021-05-23 17:06 | Outpatient (REF) | payer MEDICARE, MEDICAID, SELFPAY ==
[2021-05-23 17:47] LABS: Abs Immature Grans 0.04 10^3/uL (0.0-0.06); Absolute Basophil Count 0.09 10^3/uL (0.0-0.2); Absolute Eosinophil Count 0.16 10^3/uL (0.0-0.7); Absolute Monocyte Count 0.71 10^3/uL (0.1-0.8); Absolute Neutrophil Count 7.39 10^3/uL (1.2-6.7); Basophils % 0.9; Eosinophils % 1.6; HCT 40.4 % (36.0-46.0); HGB 13.2 g/dL (11.2-15.7); Immature Grans % 0.4; Lymphocytes % 17.7; MCH 27.9 pg (27.0-33.0); MCHC 32.7 % (32.0-36.0); MCV 85.4 fL (80-95); MPV 8.8 fL (8.0-11.0); Neutrophils % 72.4; Nucleated RBC 0 %; Platelet Count 402 10^3/uL (130-400); RBC 4.73 10^6/uL (3.93-5.22); RDW 13.2 % (11.7-14.6); RDW-SD 41.4 fL; WBC 10.19 10^3/uL (4.4-10.8)
[2021-05-23 18:05] LABS: Ferritin 53 ng/mL (8-252)
[2021-05-23 18:22] LABS: Iron 100 ug/dL (50-170); Total Iron Binding Capacity 300 ug/dL (250-450); Transferrin Sat 33 % (15-50)
== END 2021-05-23 17:07 | disposition home or self-care (01) ==
LOC: NCHCN 17:06
PROVIDERS: PCP Nurse Practitioner Family; Visit Provider Nurse Practitioner Family
DX: D64.9 Anemia, unspecified (principal)
CPT/HCPCS: 82728; 83540; 83550; 85025